=== PATIENT | male | born 1970 | race Caucasian/White ===

== ENCOUNTER 2017-12-19 19:06 | Emergency (ER) | payer OTHER ==
[~2017-12-19] VITALS: Ht 180.3 cm; Wt 90.0 kg
[~2017-12-19 19:06] MED LIST: DILT60TA PO
--- NOTE | 2017-12-19 21:27 | PD ---
HPI Chief Complaint: Psychiatric Symptoms Time Seen by Provider: 19:29 Travel History International Travel<30 days: No Contact w/Intl Traveler<30days: No Traveled to known affect area: No History of Present Illness HPI 47-year-old white male known to myself and the medical staff for prior evaluation presents to emergency department as a transfer from [facility] under a Alfaro act. The patient had gone in there for treatment of his chronic A. fib but had made a suicidal statement during his encounter. He was placed under a Alfaro act, medically cleared, and sent to the ER here to be seen by the psychiatrist. The patient here denies any true suicidal ideation. He states that he had said that out of frustration. He states that he was stuck 16 times to get his IV blood draw treatment of his A. fib. He is currently noncompliant with his medications. He states that he is still waiting for his benefits. He is living [facility]. He will be getting his check next week and plans on getting a hotel room. No toxic ingestions. Patient denies any suicidal homicidal ideation. PFSH Past Medical History Arthritis: No Asthma: Yes Autoimmune Disease: No Blood Disorders: No Bipolar Disorder: Yes Anxiety: Yes Depression: Yes Heart Rhythm Problems: Yes (AFIB) Cancer: No Cardiovascular Problems: Yes High Cholesterol: No Chemotherapy: No Chest Pain: Yes Congestive Heart Failure: No COPD: Yes Cerebrovascular Accident: No Coronary Artery Disease: Yes Diabetes: No Diminished Hearing: No Endocrine: No Gastrointestinal Disorders: Yes GERD: No Glaucoma: No Genitourinary: No Headaches: No Hepatitis: No Hiatal Hernia: No Hypertension: Yes Immune Disorder: Yes (HIV/ ?AIDS ACCORDING TO INSURANCE) Kidney Stones: No Musculoskeletal: No Neurologic: Yes Psychiatric: Yes Reproductive: No Respiratory: Yes Immunizations Current: Yes Migraines: Yes Myocardial Infarction: No Pancreatitis: Yes Radiation Therapy: No Renal Failure: No Schizophrenia: Yes Seizures: Yes Sickle Cell Disease: No Sleep Apnea: No Thyroid Disease: No Ulcer: No Past Surgical History AICD: No Cardiac Surgery: No Cholecystectomy: Yes Ear Surgery: No Endocrine Surgery: No Genitourinary Surgery: No Gynecologic Surgery: No Insulin Pump: No Joint Replacement: No Oral Surgery: No Pacemaker: No Thoracic Surgery: No Social History Alcohol Use: Yes Tobacco Use: Yes Substance Use: Yes Allergies-Medications (Allergen,Severity, Reaction): Coded Allergies: tetanus toxoid, adsorbed (Unverified Allergy, Severe, 12/06/17) Reported Meds & Prescriptions Reported Meds & Active Scripts Active Diltiazem (Diltiazem HCl) 60 Mg Tab 60 Mg PO QID 30 Days Review of Systems Except as stated in HPI: all other systems reviewed are Neg Physical Exam Narrative GENERAL: Well-nourished, well-developed patient. SKIN: Warm and dry. HEAD: Normocephalic and atraumatic. EYES: No scleral icterus. No injection or drainage. ENT: No nasal drainage noted. Mucous membranes pink. Airway patent. NECK: Supple, trachea midline. Moves head freely without obvious discomfort. CARDIOVASCULAR: Tachycardic rate and regular rhythm without murmurs, gallops, or rubs. RESPIRATORY: Breath sounds equal bilaterally. No accessory muscle use. GASTROINTESTINAL: Abdomen soft, non-tender, nondistended. EXTREMITIES: No cyanosis or edema. BACK: Nontender without obvious deformity. No CVA tenderness. NEURO: Patient is alert and oriented. no sensorimotor deficits. Nonfocal. Normal speech. PSYCH: No delusions. No auditory or visual hallucinations. Data Data Last Documented VS Vital Signs Date Time Temp Pulse Resp B/P (MAP) Pulse Ox O2 Delivery O2 Flow Rate FiO2 12/19/17 22:38 99.1 99 18 130/94 (106) 100 Room Air Orders Orders Psych Screen (12/19/17 19:08) Electrocardiogram (12/19/17 21:20) Carvedilol (Coreg) (12/19/17 21:30) Diltiazem (Cardizem) (12/19/17 21:30) Aspirin (Aspirin) (12/19/17 21:30) MDM Medical Decision Making Medical Screen Exam Complete: Yes Emergency Medical Condition: Yes Medical Record Reviewed: Yes Interpretation(s) EKG: Atrial fibrillation with ventricular rate of 108. No abnormal ST-T wave changes. Differential Diagnosis MDM: High Differential diagnoses: Schizophrenia, schizoaffective disorder, bipolar, anxiety, depression, adjustment reaction, mood disorder NOS, ODD, depressive disorder NOS, dementia, dementia with agitation, psychosis NOS, substance induced mood disorder, DMDD, Asperger syndrome, infection,electrolyte abnormality, malingering. Narrative Course Mental health screening discussed with the patient. Psychiatric screen ordered. The patient is given his Coreg 3.125 p.o., Cardizem 60 mg p.o., and 325 aspirin p.o. An order for EKG has been performed. Patient's EKG shows a ventricular rate of 108 chronic A. fib. He is given his medications for rate control. He is resting comfortable in examination room. The patient is considered medically cleared. Diagnosis Primary Impression: Medical clearance for psychiatric admission Additional Impression: Chronic atrial fibrillation with RVR Condition: Stable Buck Armendariz Dec 19, 2017 21:27
[2017-12-19] MEDS ORDERED: CARVEDILOL 3.125 MG TAB PO SCH (21:30)
[2017-12-19] MEDS: DILTIAZEM HCL 60 MG TAB PO SCH (21:30)
[2017-12-19] MEDS ORDERED: ASPIRIN 325 MG TAB PO ONE (21:30)
[2017-12-19 22:38] VITALS: BP 130/94; PULSE 99; RESP 18; TEMP 99.1; O2SAT 100
[2017-12-20 02:18] VITALS: BP 132/98; PULSE 96; RESP 18; O2SAT 99
[2017-12-20] MEDS: DILTIAZEM HCL 60 MG TAB PO SCH ×2 (06:00)
--- NOTE | 2017-12-20 09:31 | PD ---
Physical Exam Time Seen by Provider: 09:[address] Hoyos has evaluated the patient, lifted the Alfaro act and cleared the patient for discharge. Data Data Last Documented VS Vital Signs Date Time Temp Pulse Resp B/P (MAP) Pulse Ox O2 Delivery O2 Flow Rate FiO2 12/20/17 02:18 96 18 132/98 (109) 99 Room Air 12/19/17 22:38 99.1 Orders Orders Psych Screen (12/19/17 19:08) Electrocardiogram (12/19/17 21:20) Carvedilol (Coreg) (12/19/17 21:30) Diltiazem (Cardizem) (12/19/17 21:30) Aspirin (Aspirin) (12/19/17 21:30) Diet Regular Basic (12/20/17 Breakfast) Ed Discharge Order (12/20/17 09:31) [facility] Supervised Visit with KENNETH: No Narrative Course Dr. Hoyos has evaluated the patient, lifted the Alfaro act and cleared the patient for discharge. Patient contracts safety. Denies suicidal or homicidal ideations. Patient will be provided community resource packet to JON for follow-up. Has friends and family for support. Patient was medically cleared by alternate provider prior to psych screening. Patient has been evaluated by psychiatry and and is now cleared for discharge. Diagnosis Primary Impression: Chronic atrial fibrillation with RVR Additional Impression: Alcohol-induced mood disorder Referrals: [facility] (Out patient) [facility] Primary Care Physician Psychiatrist Anup [facility] Patient Instructions: Abuse of Alcohol (ED), Alcohol Dependence (ED), Alcohol Intoxication (ED), General Instructions, Mood Disorders (ED) Additional Instruction: Contract safety to your self and others Stop drinking alcohol Follow-up in the community for support, such as Alcoholics Anonymous Follow-up with psychiatry Follow-up with primary care provider Follow-up with Graham Wilson Return to the emergency department immediately with worsening of symptoms Med/Other Pt SpecificInfo: No Change to Meds, No Meds Exist/No RX given Disposition: 01 DISCHARGE HOME Condition: Stable BradyeddieSoraida JUAREZ Dec 20, 2017 09:31
--- NOTE | 2017-12-20 15:17 | PD.PSY.CON ---
Provisional Diagnosis Admission Date Dorrance I. Alcohol-induced mood disorder, alcohol use disorder History of Present Illness Service Psychiatry Consult Requested By ER Reason for Consult Under Alfaro act Primary Care Physician Unknown HPI The patient is a 47-year-old man, homeless, unemployed, supported by [facility], single, well known by the department, with psychiatric history of bipolar disorder, poor impulse control, borderline personality disorder, multiple psychiatric hospitalizations, he is not a medication, self mutilating behavior, alcohol use disorder, medical history of A. fib, HTN, COPD, who presents to emergency department as a transfer from [facility] under a Alfaro act. The patient had gone in there for treatment of his chronic A. fib but had made a suicidal statement during his encounter. He was placed under a Alfaro act , medically cleared, and sent to the ER here to be seen by the psychiatrist. The patient here denies any true suicidal ideation. He states that he had said that out of frustration. He states that he was stuck 16 times to get his IV blood draw treatment of his A. fib. He is currently noncompliant with his medications. He states that he is still waiting for his benefits. He is living in the [facility]. He will be getting his check next week and plans on getting a hotel room. Patient denies depressive symptoms, he denies suicidal and homicidal ideation, he denies visual and auditory hallucinations at this moment. Review of Systems Constitutional: DENIES: Diaphoretic episodes, Fatigue, Fever, Weight gain, Weight loss, Chills, Dizziness, Change in appetite, Night Sweats Endocrine: DENIES: Heat/cold intolerance, Polydipsia, Polyuria, Polyphagia Eyes: DENIES: Blurred vision, Diplopia, Eye inflammation, Eye pain, Vision loss , Photosensitivity, Double Vision Ears, nose, mouth, throat: DENIES: Tinnitus, Hearing loss, Vertigo, Nasal discharge, Oral lesions, Throat pain, Hoarseness, Ear Pain, Running Nose, Epistaxis, Sinus Pain, Toothache, Odynophagia Respiratory: DENIES: Apneas, Cough, Snoring, Wheezing, Hemoptysis, Sputum production, Shortness of breath Cardiovascular: DENIES: Chest pain, Palpitations, Syncope, Dyspnea on Exertion , PND, Lower Extremity Edema, Orthopnea, Claudication Gastrointestinal: DENIES: Abdominal pain, Black stools, Bloody stools, Constipation, Diarrhea, Nausea, Vomiting, Difficulty Swallowing, Anorexia Genitourinary: DENIES: Sexual dysfunction, Urinary frequency, Urinary incontinence, Urgency, Hematuria, Dysuria, Nocturia, Penile Discharge, Testicular Pain, Testicular Swelling Musculoskeletal: DENIES: Joint pain, Muscle aches, Stiffness, Joint Swelling, Back pain, Neck pain Integumentary: DENIES: Abnormal pigmentation, Nail changes, Pruritus, Rash Hematologic/lymphatic: DENIES: Bruising, Lymphadenopathy Immunologic/allergic: DENIES: Eczema, Urticaria Neurologic: DENIES: Abnormal gait, Headache, Localized weakness, Paresthesias, Seizures, Speech Problems, Tremor, Poor Balance Psychiatric: DENIES: Anxiety, Confusion, Mood changes, Depression, Hallucinations, Agitation, Suicidal Ideation, Homicidal Ideation, Delusions Past Family Social History Coded Allergies: tetanus toxoid, adsorbed (Unverified Allergy, Severe, 12/06/17) Active Scripts Diltiazem (Diltiazem) 60 Mg Tab, 60 MG PO QID for Angina for 30 Days, #120 TAB 0 Refills Prov:Noris Galicia DO 12/06/17 Family Psych History The patient does not have any family psychiatric history Social History Patient was born and raised in [place], he is homeless, supported by [facility], single, highest level of education is GED Physical Exam Vital Signs Vital Signs Date Time Temp Pulse Resp B/P (MAP) Pulse Ox O2 Delivery O2 Flow Rate FiO2 12/20/17 09:54 12/20/17 02:18 96 18 99 Room Air 12/19/17 22:38 99.1 Mental Status Examination Appearance: Appropriate Consciousness: Alert Orientation: x4 Motor Activity: Normal gait Speech: Unremarkable Language: Adequate Fund of Knowledge: Adequate Attention and Concentration: Adequate Memory: Unremarkable Mood: Appropriate Affect: Appropriate Thought Process & Associations: Intact Thought Content: Appropriate Hallucination Type: None Delusion Type: None Suicidal Ideation: No Suicidal Plan: No Suicidal Intention: No Homicidal Ideation: No Homicidal Plan: No Homicidal Intention: No Insight: Adequate Judgment: Adequate Assessment & Plan Problem List: (1) Alcohol abuse with alcohol-induced mood disorder ICD Codes: F10.14 - Alcohol abuse with alcohol-induced mood disorder Assessment & Plan: At the moment of the psychiatric evaluation the patient does not present any significant neuropsychiatric symptoms that require an immediate psychiatric intervention. The patient denies suicidal and homicidal ideation, he denies visual and auditory hallucinations. Patient does not meet criteria for involuntary psychiatric admission. Alfaro act will be lifted Assessment & Plan Estimated LOS: days Prince Jacinto MD Dec 20, 2017 15:17
--- NOTE | 2017-12-20 15:35 | EKG ---
Date Performed: 12/19/2017 Time Performed: 23:06:42 PTAGE: 47 years EKG: ATRIAL FIBRILLATION WITH RAPID VENTRICULAR RESPONSE ABNORMAL RHYTHM ECG Since the previous tracing, no significant change noted NO PREVIOUS TRACING DOCTOR: Alek Austin Interpretating Date/Time 12/20/2017 15:33:17
== END 2017-12-20 09:58 | disposition home or self-care (01) ==
LOC: NEPJ 19:06
DX: I48.2 Chronic atrial fibrillation (principal); F10.14 Alcohol abuse with alcohol-induced mood disorder; Y90.9 Presence of alcohol in blood, level not specified; Z72.0 Tobacco use; Z91.14 Patient's other noncompliance with medication regimen
CPT/HCPCS: 93005; 99284

== ENCOUNTER 2018-01-01 00:01 | Emergency (ER) | payer OTHER ==
[2018-01-01] VITALS (8 sets, daily range): BP systolic 85–132; BP diastolic 51–100; PULSE 102–154; RESP 18–24; TEMP 98.3–98.9; O2SAT 95–99
[~2018-01-01] VITALS: Ht 185.4 cm; Wt 105.0 kg
[2018-01-01] MEDS ORDERED: DILTIAZEM HCL 25 MG/5 ML VIAL IV ONE (00:45)
[2018-01-01] MEDS ORDERED: SODIUM CHLORID 0.9% 500 ML INJ 500 ML IV ONE (00:45)
--- NOTE | 2018-01-01 00:46 | PD ---
HPI Chief Complaint: Psychiatric Symptoms Time Seen by Provider: 00:41 Travel History International Travel<30 days: No Contact w/Intl Traveler<30days: No Traveled to known affect area: No History of Present Illness HPI The patient is a 47-year-old male who presents to the emergency department from [facility] for medical clearance. The patient was placed under a Alfaro act earlier today because he told staff at a restaurant he wish to harm himself and they subsequently called the police. The patient states he no longer has a reason to live and apparently made several statements requesting the police to shoot him. Therefore, please placed him under Alfaro act. The patient was taken [facility], however, they state the patient has a history of lung cancer, atrial fibrillation, COPD, asthma, and enlarged heart. They stated the patient was out of the scope of their practice. The patient does admit to daily alcohol abuse, he drank alcohol earlier today. He also notes a history of lung cancer, however, states he is not currently undergoing treatment. He was unable to tell me what stage of lung cancer he has. He also complains of mild chest discomfort and pain as well as epigastric abdominal pain. Patient states he is supposed to take Cardizem 240 mg extended release daily, but has not taken his medications in a "long time ". He denies any acute shortness of breath. Symptoms are moderate. PFSH Past Medical History Arthritis: No Asthma: Yes Autoimmune Disease: No Blood Disorders: No Bipolar Disorder: Yes Anxiety: Yes Depression: Yes Heart Rhythm Problems: Yes (AFIB) Cancer: No Cardiovascular Problems: Yes High Cholesterol: No Chemotherapy: No Chest Pain: Yes Congestive Heart Failure: No COPD: Yes Cerebrovascular Accident: No Coronary Artery Disease: Yes Diabetes: No Patient Takes Glucophage: No Diminished Hearing: No Endocrine: No Gastrointestinal Disorders: Yes GERD: No Glaucoma: No Genitourinary: No Headaches: No Hepatitis: No Hiatal Hernia: No Hypertension: Yes Immune Disorder: No Kidney Stones: No Musculoskeletal: No Neurologic: Yes Psychiatric: Yes Reproductive: No Respiratory: Yes Immunizations Current: Yes Migraines: Yes Myocardial Infarction: No Pancreatitis: Yes Radiation Therapy: No Renal Failure: No Schizophrenia: Yes Seizures: Yes Sickle Cell Disease: No Sleep Apnea: No Thyroid Disease: No Ulcer: No Tetanus Vaccination: > 5 Years Influenza Vaccination: No Past Surgical History Abdominal Surgery: Yes (GALL BLADDER REMOVAL) AICD: No Cardiac Surgery: No Cholecystectomy: Yes Ear Surgery: No Endocrine Surgery: No Genitourinary Surgery: No Gynecologic Surgery: No Insulin Pump: No Joint Replacement: No Oral Surgery: No Pacemaker: No Thoracic Surgery: No Social History Alcohol Use: Yes (DAILY) Tobacco Use: Yes Substance Use: Yes Allergies-Medications (Allergen,Severity, Reaction): Coded Allergies: tetanus toxoid, adsorbed (Unverified Allergy, Severe, 01/01/18) Reported Meds & Prescriptions Reported Meds & Active Scripts Active No Active Prescriptions or Reported Medications Review of Systems Except as stated in HPI: all other systems reviewed are Neg General / Constitutional: No: Fever HENT: No: Lightheadedness Cardiovascular: Positive: Chest Pain or Discomfort, Irregular Rhythm, Tachycardia Respiratory: No: Shortness of Breath Gastrointestinal: Positive: Nausea, Abdominal Pain, No: Vomiting, Diarrhea Neurologic: No: Change in Mentation Psychiatric: Positive: Suicidal Ideations, Mood Disorder, Substance Abuse Physical Exam Narrative GENERAL: Awake, alert, pleasant 47-year-old male who appears his stated age and is in no acute respiratory distress. SKIN: Focused skin assessment warm/dry. HEAD: Atraumatic. Normocephalic. EYES: No scleral icterus. ENT: No nasal bleeding or discharge. Poor dentition. NECK: Trachea midline. No JVD. CARDIOVASCULAR: Irregularly irregular, tachycardic with a heart rate in the 150s. RESPIRATORY: No accessory muscle use. Scattered rhonchi in the right base. GASTROINTESTINAL: Abdomen soft, mild epigastric tenderness. MUSCULOSKELETAL: No obvious deformities. No clubbing. No cyanosis. No edema. NEUROLOGICAL: Awake and alert. No obvious cranial nerve deficits. Motor grossly within normal limits. Normal speech. Nonfocal. PSYCHIATRIC: Appears slightly intoxicated. Data Data Orders Orders Complete Blood Count With Diff (01/01/18 00:29) Comprehensive Metabolic Panel (01/01/18 00:29) Psych Screen (01/01/18 00:29) Alcohol (Ethanol) (01/01/18 00:29) B-Type Natriuretic Peptide (01/01/18 00:37) Act Partial Throm Time (Ptt) (01/01/18 00:37) Prothrombin Time / Inr (Pt) (01/01/18 00:37) Magnesium (Mg) (01/01/18 00:37) Ckmb (Isoenzyme) Profile (01/01/18 00:37) Troponin I (01/01/18 00:37) Iv Access Insert/Monitor (01/01/18 00:37) Electrocardiogram (01/01/18 00:37) Ecg Monitoring (01/01/18 00:37) Oximetry (01/01/18 00:37) Oxygen Administration (01/01/18 00:37) Chest, Single Ap (01/01/18 00:37) Sodium Chloride 0.9% Flush (Ns Flush) (01/01/18 00:45) Lipase (01/01/18 00:39) Diltiazem Inj (Cardizem Inj) (01/01/18 00:45) Sodium Chlorid 0.9% 500 Ml Inj (Ns 500 M (01/01/18 00:45) MDM Medical Decision Making Medical Screen Exam Complete: Yes Emergency Medical Condition: Yes Medical Record Reviewed: Yes Differential Diagnosis Differential diagnosis includes Alfaro act, schizoaffective disorder, mood disorder, depressive disorder NOS, substance-induced mood disorder, holiday heart, atrial fibrillation with RVR, pulmonary embolism, pancreatitis, dehydration. Narrative Course IV was established, labs are drawn and sent, the patient was placed on cardiac telemetry monitoring and continuous pulse oximetry monitoring. EKG was ordered and interpreted. Chest x-ray was obtained. The patient was administered 500 cc of normal saline and Cardizem 50 mg intravenously. I did review the EMR, the patient had a nuclear medicine myocardial perfusion scan performed in November 2017 which reveals no acute reversible changes, prior infarct, patient was high risk greater than 3%. The patient was moved from [facility] to [facility] and was signed out to Dr. Holloway at 12:50 AM. Diagnosis Primary Impression: Atrial fibrillation with RVR Additional Impression: Alcohol abuse with alcohol-induced mood disorder Admitting Information Admitting Physician Requests: Admit Scripts No Active Prescriptions or Reported Meds Condition: Stable Neil Blanco MD Jan 01, 2018 00:46
[2018-01-01] MEDS ORDERED: ASPIRIN EC 81 MG TABEC PO ONE (01:00)
[2018-01-01] MEDS ORDERED: HALOPERIDOL LACTATE 5 MG/ML AMP ONE (01:17)
[2018-01-01] MEDS ORDERED: LORazepam 2 MG/ML VIAL ONE (01:17)
[2018-01-01] MEDS ORDERED: LORazepam 2 MG/ML VIAL IM ONE (01:45)
[2018-01-01] MEDS ORDERED: HALOPERIDOL LACTATE 5 MG/ML AMP IM ONE (01:45)
[2018-01-01] MEDS ORDERED: METOPROLOL TARTRATE 5 MG/5 ML VIAL IV PUSH STA ×2 (03:16→04:36)
[2018-01-01 03:39] LABS: ALBUMIN 3.3 GM/DL (3.4-5.0); AST (GOT) 49 U/L (15-37); BICARBONATE 26.2 MEQ/L (21.0-32.0); BLOOD UREA NITROGEN 14 MG/DL (7-18); CALCIUM 7.7 MG/DL (8.5-10.1); CHLORIDE 110 MEQ/L (98-107); CREATININE 0.93 MG/DL (0.60-1.30); GLOMERULAR FILTRATION RATE 86 ML/MIN (>89); GLUCOSE,RANDOM 89 MG/DL (74-106); MAGNESIUM 1.9 MG/DL (1.5-2.5); SODIUM (NA) 146 MEQ/L (136-145)
[2018-01-01 03:43] LABS: ALKALINE PHOSPHATASE 92 U/L (45-117); ALT (GPT) 51 U/L (12-78); TOTAL BILIRUBIN ADULT 0.3 MG/DL (0.2-1.0); TOTAL PROTEIN 5.8 GM/DL (6.4-8.2); TROPONIN I LESS THAN 0.02 NG/ML (0.02-0.05)
[2018-01-01 04:01] LABS: AUTOMATED NEUTROPHIL # 2.4 TH/MM3 (1.8-7.7); BASOPHIL # 0.1 TH/MM3 (0-0.2); BASOPHIL % 1.4 % (0.0-2.0); EOSINOPHIL # 0.3 TH/MM3 (0-0.4); EOSINOPHIL % 4.9 % (0.0-4.0); HEMATOCRIT 28.8 % (39.0-51.0); HEMOGLOBIN 8.8 GM/DL (13.0-17.0); LYMPH % 41.8 % (9.0-44.0); LYMPHOCYTE # 2.4 TH/MM3 (1.0-4.8); MEAN CELL VOLUME 66.2 FL (80.0-100.0); MEAN CORPUSCULAR HEMOGLOBIN 20.1 PG (27.0-34.0); MEAN CORPUSCULAR HGB CONC 30.4 % (32.0-36.0); MEAN PLATELET VOLUME 8.1 FL (7.0-11.0); MONOCYTE # 0.6 TH/MM3 (0-0.9); NEUT % 41.9 % (16.0-70.0); PLATELET COUNT 351 TH/MM3 (150-450); RED BLOOD COUNT 4.36 MIL/MM3 (4.50-5.90); RED CELL DISTRIBUTION WIDTH 22.6 % (11.6-17.2); WHITE BLOOD COUNT 5.8 TH/MM3 (4.0-11.0)
[2018-01-01 04:08] LABS: INTERNATIONAL NORMALIZED RATIO 1.1 RATIO; PROTHROMBIN TIME - PATIENT 11.5 SEC (9.8-11.6)
[2018-01-01] MEDS ORDERED: LORazepam 1 MG TAB PO PRN (05:45)
[2018-01-01] MEDS ORDERED: FLUMAZENIL 0.5 MG/5 ML VIAL IV PUSH PRN (05:45)
[2018-01-01] MEDS ORDERED: LORazepam 2 MG/ML VIAL IV PUSH PRN ×3 (05:45)
[2018-01-01] MEDS ORDERED: LORazepam 2 MG TAB PO PRN (05:45)
--- NOTE | 2018-01-01 05:53 | PD ---
Physical Exam Narrative Patient is a 47 year old male with history of Afib, chronic alcoholism, psychiatric disorders. He is brought in by police under a david act after making suicidal statements. Patient states he has nothing to live for and he wants to . Patient has been here multiple times for this. He also does not take any of his medications and always has a rapid heart rate. Patient is uncooperative and belligerent. He is refusing to provide history or allow any testing. Patient does have a rapid heart rate. Thus, patient sedated with Ativan and Haldol. Afterwards, IV was established and labs drawn. He was given Metoprolol as we are out of Cardizem IV. He is prescribed Cardizem 240mg, which he does not take. Data Data Last Documented VS Vital Signs Date Time Temp Pulse Resp B/P (MAP) Pulse Ox O2 Delivery O2 Flow Rate FiO2 01/01/18 04:46 108 18 103/70 (81) 95 Room Air 01/01/18 03:28 2.00 01/01/18 00:50 98.3 Orders Orders Complete Blood Count With Diff (01/01/18 00:29) Comprehensive Metabolic Panel (01/01/18 00:29) Psych Screen (01/01/18 00:29) Alcohol (Ethanol) (01/01/18 00:29) B-Type Natriuretic Peptide (01/01/18 00:37) Act Partial Throm Time (Ptt) (01/01/18 00:37) Prothrombin Time / Inr (Pt) (01/01/18 00:37) Iv Access Insert/Monitor (01/01/18 00:37) Electrocardiogram (01/01/18 00:37) Ecg Monitoring (01/01/18 00:37) Oximetry (01/01/18 00:37) Oxygen Administration (01/01/18 00:37) Sodium Chloride 0.9% Flush (Ns Flush) (01/01/18 00:45) Diltiazem Inj (Cardizem Inj) (01/01/18 00:45) Sodium Chlorid 0.9% 500 Ml Inj (Ns 500 M (01/01/18 00:45) Aspirin Ec (Ecotrin Ec) (01/01/18 01:00) Haloperidol Inj (Haldol Inj) (01/01/18 01:17) Lorazepam Inj (Ativan Inj) (01/01/18 01:17) Haloperidol Inj (Haldol Inj) (01/01/18 01:45) Lorazepam Inj (Ativan Inj) (01/01/18 01:45) Metoprolol Tartrate Inj (Lopressor Inj) (01/01/18 03:16) Ckmb (Isoenzyme) Profile (01/01/18 00:29) Lipase (01/01/18 00:29) Magnesium (Mg) (01/01/18 00:29) Troponin I (01/01/18 00:29) CKMB (01/01/18 02:42) CKMB% (01/01/18 02:42) Metoprolol Tartrate Inj (Lopressor Inj) (01/01/18 04:36) Alcohol Withdrawal Asmt-Ciwa ONCE (01/01/18 05:45) Flumazenil Inj (Romazicon Inj) (01/01/18 05:45) Lorazepam (Ativan) (01/01/18 05:45) Lorazepam Inj (Ativan Inj) (01/01/18 05:45) Lorazepam (Ativan) (01/01/18 05:45) Lorazepam Inj (Ativan Inj) (01/01/18 05:45) Lorazepam Inj (Ativan Inj) (01/01/18 05:45) Lorazepam Inj (Ativan Inj) (01/01/18 05:45) Labs Laboratory Tests Test 01/01/18 02:42 White Blood Count 5.8 TH/MM3 Red Blood Count 4.36 MIL/MM3 Hemoglobin 8.8 GM/DL Hematocrit 28.8 % Mean Corpuscular Volume 66.2 FL Mean Corpuscular Hemoglobin 20.1 PG Mean Corpuscular Hemoglobin Concent 30.4 % Red Cell Distribution Width 22.6 % Platelet Count 351 TH/MM3 Mean Platelet Volume 8.1 FL Neutrophils (%) (Auto) 41.9 % Lymphocytes (%) (Auto) 41.8 % Monocytes (%) (Auto) 10.0 % Eosinophils (%) (Auto) 4.9 % Basophils (%) (Auto) 1.4 % Neutrophils # (Auto) 2.4 TH/MM3 Lymphocytes # (Auto) 2.4 TH/MM3 Monocytes # (Auto) 0.6 TH/MM3 Eosinophils # (Auto) 0.3 TH/MM3 Basophils # (Auto) 0.1 TH/MM3 CBC Comment DIFF FINAL Differential Comment Prothrombin Time 11.5 SEC Prothromb Time International Ratio 1.1 RATIO Activated Partial Thromboplast Time 28.3 SEC Blood Urea Nitrogen 14 MG/DL Creatinine 0.93 MG/DL Random Glucose 89 MG/DL Total Protein 5.8 GM/DL Albumin 3.3 GM/DL Calcium Level 7.7 MG/DL Magnesium Level 1.9 MG/DL Alkaline Phosphatase 92 U/L Aspartate Amino Transf (AST/SGOT) 49 U/L Alanine Aminotransferase (ALT/SGPT) 51 U/L Total Bilirubin 0.3 MG/DL Sodium Level 146 MEQ/L Potassium Level 3.6 MEQ/L Chloride Level 110 MEQ/L Carbon Dioxide Level 26.2 MEQ/L Anion Gap 10 MEQ/L Estimat Glomerular Filtration Rate 86 ML/MIN Total Creatine Kinase 262 U/L Creatine Kinase MB 3.3 NG/ML Troponin I LESS THAN 0.02 NG/ML B-Type Natriuretic Peptide 325 PG/ML Lipase 232 U/L Ethyl Alcohol Level 282 MG/DL [facility] Supervised Visit with KENNETH: No Narrative Course Patient's heart rate improved with medications. Labs show an alcohol level of 282. He is anemic with Hgb 8.8. No other acute abnormalities. With his heart rate under better control, he will be medically cleared for psychiatric evaluation. Diagnosis Primary Impression: Alcohol abuse with intoxication Additional Impression: Atrial fibrillation with RVR Scripts No Active Prescriptions or Reported Meds Condition: Stable Vilma Holloway MD Jan 01, 2018 05:53
[2018-01-01] MEDS: SODIUM CHLORIDE 0.9% FLUSH 10 ML FLUSH IVF PRN ×2 (09:10→11:42)
[2018-01-01] MEDS: LORazepam 2 MG/ML VIAL IV PUSH PRN ×3 (11:42→14:50)
--- NOTE | 2018-01-01 15:19 | PD ---
History of Present Illness Chief Complaint: Psychiatric Symptoms Time Seen by Provider: 15:05 Travel History International Travel<30 Days: No Contact w/Intl Traveler<30days: No Known affected area: No Legal Status Legal Status: Alfaro Act Alfaro Act Signed By: Alfaro Act Comment: [employer] History of Present Illness: History of Present Illness HPI The patient is a 47-year-old male with history of alcohol abuse , bipolar disorder, borderline personality disorder, schizoaffective disorder who presents to the emergency department from [facility] for medical clearance. The patient was placed under a Alfaro act earlier today because in context of alcohol intoxication he he told staff at a restaurant that he wish to harm himself and they subsequently called the police. The report alleges that the patient patient states he no longer has a reason to live and apparently made several statements requesting the police to shoot him. Upon arrival to the ED his blood alcohol level was 282. The patient was allowed to sober up clinically and secure environment and he presented no suicidality and no behavioral concerns. Electronic medical record is reviewed the patient has been seen by [facility] psychiatry team with his last evaluation in November 2017, at that time he was admitted under a Alfaro act for cutting his neck with a blunt object in contacts of alcohol abuse as well as cocaine abuse. Previous to that the patient had been evaluated in 2005. It is unclear if he had been out of the [facility] or incarcerated. Patient is seen in Main ED. He is clinically sober. Appears much older than stated age. He has a very jovial attitude and is requesting to be discharged. He denies any suicidality. He states" I was drunk and I said the wrong thing" he denies that he is feeling depressed and states that he does have outpatient follow-up with Dr. Minerva Harkins. There is no indication of any psychosis and no deric. I endeavored to discuss with him his continued use of alcohol. He states" I like drinking and I am not ready to stop." The remainder of the psychiatric review of system is negative. PFSH Past Medical History Arthritis: No Asthma: Yes Autoimmune Disease: No Blood Disorders: No Bipolar Disorder: Yes Anxiety: Yes Depression: Yes Heart Rhythm Problems: Yes (AFIB) Cancer: No Cardiovascular Problems: Yes High Cholesterol: No Chemotherapy: No Chest Pain: Yes Congestive Heart Failure: No COPD: Yes Cerebrovascular Accident: Yes Coronary Artery Disease: Yes Diabetes: No Patient Takes Glucophage: No Diminished Hearing: No Endocrine: No Gastrointestinal Disorders: Yes GERD: No Glaucoma: No Genitourinary: No Headaches: No Hepatitis: No Hiatal Hernia: No Hypertension: Yes Immune Disorder: No Kidney Stones: No Musculoskeletal: No Neurologic: Yes Psychiatric: Yes Reproductive: No Respiratory: Yes Immunizations Current: Yes Migraines: Yes Myocardial Infarction: No Pancreatitis: Yes Radiation Therapy: No Renal Failure: No Schizophrenia: Yes Seizures: Yes Sickle Cell Disease: No Sleep Apnea: No Thyroid Disease: No Ulcer: No Tetanus Vaccination: > 5 Years Influenza Vaccination: No Past Surgical History Abdominal Surgery: Yes (GALL BLADDER REMOVAL) AICD: No Cardiac Surgery: No Cholecystectomy: Yes Ear Surgery: No Endocrine Surgery: No Genitourinary Surgery: No Gynecologic Surgery: No Insulin Pump: No Joint Replacement: No Oral Surgery: No Pacemaker: No Thoracic Surgery: No Psychiatric History Psychiatric History Hx Psychiatric Treatment: HX OF SCHIZOAFFECTIVE ACCORDING TO RECORDS IN 2004 2005. HX OF [facility] IN 1999. History of Inpatient Treatment: Yes Guns or firearms in home: No Social History Single male who reports he lives in [place]. Patient is on disability. Hx Alcohol Use: Yes (DAILY) Hx Tobacco Use: Yes Hx Substance Use: Yes Substance Use Type: Alcohol (states drinks every day and does not want to stop) , Cocaine Hx of Substance Use Treatment: Yes Family Psychiatric History Negative Allergies-Medications (Allergen,Severity, Reaction): Coded Allergies: tetanus toxoid, adsorbed (Unverified Allergy, Severe, 01/01/18) Reported Meds & Prescriptions Reported Meds & Active Scripts Active No Active Prescriptions or Reported Medications Review of Systems Psychiatric: DENIES: Anxiety, Confusion, Mood changes, Depression, Hallucinations, Agitation, Suicidal Ideation, Homicidal Ideation, Delusions Except as stated in HPI: all other systems reviewed are Neg Mental Status Examination Appearance: Appropriate Consciousness: Alert Orientation: x4 Speech: Unremarkable Language: Adequate Fund of Knowledge: Adequate Attention and Concentration: Adequate Memory: Unremarkable Mood: Appropriate Affect: Appropriate Thought Process & Associations: Intact, Logical, Goal directed Thought Content: Appropriate Hallucination Type: None Delusion Type: None Suicidal Ideation: No Suicidal Plan: No Suicidal Intention: No Homicidal Ideation: No Homicidal Plan: No Homicidal Intention: No Insight: Poor Judgment: Poor MDM Medical Decision Making Medical Record Reviewed: Yes Assessment/Plan The patient is a 47-year-old male with history of alcohol abuse , bipolar disorder, borderline personality disorder, schizoaffective disorder who presents to the emergency department from [facility] for medical clearance. The patient was placed under a Alfaro act earlier today because in context of alcohol intoxication he he told staff at a restaurant he wish to harm himself and they subsequently called the police. The patient states he no longer has a reason to live and apparently made several statements requesting the police to shoot him. Therefore, please placed him under Alfaro act. Patient is clinically sober. He does not present any psychosis or deric. He denies any suicidal carson homicidal ideation, intent or plan. He does not want treatment for his alcohol use disorder. He tells me that he is in treatment with Minerva Woody will follow up with her. At this time the patient does not meet criteria for Aflaro act. Lift the BA. Orders Orders Complete Blood Count With Diff (01/01/18 00:29) Comprehensive Metabolic Panel (01/01/18 00:29) Psych Screen (01/01/18 00:29) Alcohol (Ethanol) (01/01/18 00:29) B-Type Natriuretic Peptide (01/01/18 00:37) Act Partial Throm Time (Ptt) (01/01/18 00:37) Prothrombin Time / Inr (Pt) (01/01/18 00:37) Iv Access Insert/Monitor (01/01/18 00:37) Electrocardiogram (01/01/18 00:37) Ecg Monitoring (01/01/18 00:37) Oximetry (01/01/18 00:37) Oxygen Administration (01/01/18 00:37) Sodium Chloride 0.9% Flush (Ns Flush) (01/01/18 00:45) Diltiazem Inj (Cardizem Inj) (01/01/18 00:45) Sodium Chlorid 0.9% 500 Ml Inj (Ns 500 M (01/01/18 00:45) Aspirin Ec (Ecotrin Ec) (01/01/18 01:00) Haloperidol Inj (Haldol Inj) (01/01/18 01:17) Lorazepam Inj (Ativan Inj) (01/01/18 01:17) Haloperidol Inj (Haldol Inj) (01/01/18 01:45) Lorazepam Inj (Ativan Inj) (01/01/18 01:45) Metoprolol Tartrate Inj (Lopressor Inj) (01/01/18 03:16) Ckmb (Isoenzyme) Profile (01/01/18 00:29) Lipase (01/01/18 00:29) Magnesium (Mg) (01/01/18 00:29) Troponin I (01/01/18 00:29) CKMB (01/01/18 02:42) CKMB% (01/01/18 02:42) Metoprolol Tartrate Inj (Lopressor Inj) (01/01/18 04:36) Alcohol Withdrawal Asmt-Ciwa ONCE (01/01/18 05:45) Flumazenil Inj (Romazicon Inj) (01/01/18 05:45) Lorazepam (Ativan) (01/01/18 05:45) Lorazepam Inj (Ativan Inj) (01/01/18 05:45) Lorazepam (Ativan) (01/01/18 05:45) Lorazepam Inj (Ativan Inj) (01/01/18 05:45) Lorazepam Inj (Ativan Inj) (01/01/18 05:45) Lorazepam Inj (Ativan Inj) (01/01/18 05:45) Diet Regular Basic (01/01/18 Breakfast) Diet Regular Basic (01/01/18 Dinner) Results Vital Signs Date Time Temp Pulse Resp B/P (MAP) Pulse Ox O2 Delivery O2 Flow Rate FiO2 01/01/18 12:34 98.9 111 24 123/70 (87) 99 Room Air 01/01/18 09:12 110 19 114/57 (76) 96 Room Air 01/01/18 06:38 102 18 99/55 (70) 97 Room Air 01/01/18 04:46 108 18 103/70 (81) 95 Room Air 01/01/18 03:28 114 18 113/57 (75) 95 Nasal Cannula 2.00 01/01/18 02:49 127 18 85/51 (62) 96 Room Air 01/01/18 00:51 Room Air 01/01/18 00:51 Room Air 01/01/18 00:50 98.3 154 20 132/100 (111) 95 Room Air 01/01/18 00:46 98.3 149 20 95 Laboratory Tests Test 01/01/18 02:42 White Blood Count 5.8 Red Blood Count 4.36 Hemoglobin 8.8 Hematocrit 28.8 Mean Corpuscular Volume 66.2 Mean Corpuscular Hemoglobin 20.1 Mean Corpuscular Hemoglobin Concent 30.4 Red Cell Distribution Width 22.6 Platelet Count 351 Mean Platelet Volume 8.1 Neutrophils (%) (Auto) 41.9 Lymphocytes (%) (Auto) 41.8 Monocytes (%) (Auto) 10.0 Eosinophils (%) (Auto) 4.9 Basophils (%) (Auto) 1.4 Neutrophils # (Auto) 2.4 Lymphocytes # (Auto) 2.4 Monocytes # (Auto) 0.6 Eosinophils # (Auto) 0.3 Basophils # (Auto) 0.1 CBC Comment DIFF FINAL Differential Comment Prothrombin Time 11.5 Prothromb Time International Ratio 1.1 Activated Partial Thromboplast Time 28.3 Blood Urea Nitrogen 14 Creatinine 0.93 Random Glucose 89 Total Protein 5.8 Albumin 3.3 Calcium Level 7.7 Magnesium Level 1.9 Alkaline Phosphatase 92 Aspartate Amino Transf (AST/SGOT) 49 Alanine Aminotransferase (ALT/SGPT) 51 Total Bilirubin 0.3 Sodium Level 146 Potassium Level 3.6 Chloride Level 110 Carbon Dioxide Level 26.2 Anion Gap 10 Estimat Glomerular Filtration Rate 86 Total Creatine Kinase 262 Creatine Kinase MB 3.3 Troponin I LESS THAN 0.02 B-Type Natriuretic Peptide 325 Lipase 232 Ethyl Alcohol Level 282 Diagnosis Primary Impression: Alcohol abuse with intoxication Additional Impressions: Atrial fibrillation with RVR Alcohol abuse with alcohol-induced mood disorder Psychiatrically Cleared: Yes Med/ Other Pt Specific Info: No Change to Meds Prescriptions No Active Prescriptions or Reported Meds Disposition: 01 DISCHARGE HOME Condition: Stable Problem Qualifiers Naz Wheeler Jan 01, 2018 15:19
--- NOTE | 2018-01-01 15:24 | PD ---
Physical Exam Date Seen by Provider: Jan 01, 2018 Time Seen by Provider: 15:23 Narrative Patient was signed out to me 2 be seen by psych for psych screen. He is an extremely noncompliant chronic alcoholic with history of A. fib. He has been the emergency room multiple times. Patient refuses to take his medications as an outpatient. His guardian is a Alfaro act. I was just told a psych saw him and lifted the Alfaro act. I will be discharging him home. Data Data Last Documented VS Vital Signs Date Time Temp Pulse Resp B/P (MAP) Pulse Ox O2 Delivery O2 Flow Rate FiO2 01/01/18 15:31 01/01/18 12:34 98.9 111 24 99 Room Air 01/01/18 03:28 2.00 Orders Orders Complete Blood Count With Diff (01/01/18 00:29) Comprehensive Metabolic Panel (01/01/18 00:29) Psych Screen (01/01/18 00:29) Alcohol (Ethanol) (01/01/18 00:29) B-Type Natriuretic Peptide (01/01/18 00:37) Act Partial Throm Time (Ptt) (01/01/18 00:37) Prothrombin Time / Inr (Pt) (01/01/18 00:37) Iv Access Insert/Monitor (01/01/18 00:37) Electrocardiogram (01/01/18 00:37) Ecg Monitoring (01/01/18 00:37) Oximetry (01/01/18 00:37) Oxygen Administration (01/01/18 00:37) Sodium Chloride 0.9% Flush (Ns Flush) (01/01/18 00:45) Diltiazem Inj (Cardizem Inj) (01/01/18 00:45) Sodium Chlorid 0.9% 500 Ml Inj (Ns 500 M (01/01/18 00:45) Aspirin Ec (Ecotrin Ec) (01/01/18 01:00) Haloperidol Inj (Haldol Inj) (01/01/18 01:17) Lorazepam Inj (Ativan Inj) (01/01/18 01:17) Haloperidol Inj (Haldol Inj) (01/01/18 01:45) Lorazepam Inj (Ativan Inj) (01/01/18 01:45) Metoprolol Tartrate Inj (Lopressor Inj) (01/01/18 03:16) Ckmb (Isoenzyme) Profile (01/01/18 00:29) Lipase (01/01/18 00:29) Magnesium (Mg) (01/01/18 00:29) Troponin I (01/01/18 00:29) CKMB (01/01/18 02:42) CKMB% (01/01/18 02:42) Metoprolol Tartrate Inj (Lopressor Inj) (01/01/18 04:36) Alcohol Withdrawal Asmt-Ciwa ONCE (01/01/18 05:45) Flumazenil Inj (Romazicon Inj) (01/01/18 05:45) Lorazepam (Ativan) (01/01/18 05:45) Lorazepam Inj (Ativan Inj) (01/01/18 05:45) Lorazepam (Ativan) (01/01/18 05:45) Lorazepam Inj (Ativan Inj) (01/01/18 05:45) Lorazepam Inj (Ativan Inj) (01/01/18 05:45) Lorazepam Inj (Ativan Inj) (01/01/18 05:45) Diet Regular Basic (01/01/18 Breakfast) Ed Discharge Order (01/01/18 15:25) Labs Laboratory Tests Test 01/01/18 02:42 White Blood Count 5.8 TH/MM3 Red Blood Count 4.36 MIL/MM3 Hemoglobin 8.8 GM/DL Hematocrit 28.8 % Mean Corpuscular Volume 66.2 FL Mean Corpuscular Hemoglobin 20.1 PG Mean Corpuscular Hemoglobin Concent 30.4 % Red Cell Distribution Width 22.6 % Platelet Count 351 TH/MM3 Mean Platelet Volume 8.1 FL Neutrophils (%) (Auto) 41.9 % Lymphocytes (%) (Auto) 41.8 % Monocytes (%) (Auto) 10.0 % Eosinophils (%) (Auto) 4.9 % Basophils (%) (Auto) 1.4 % Neutrophils # (Auto) 2.4 TH/MM3 Lymphocytes # (Auto) 2.4 TH/MM3 Monocytes # (Auto) 0.6 TH/MM3 Eosinophils # (Auto) 0.3 TH/MM3 Basophils # (Auto) 0.1 TH/MM3 CBC Comment DIFF FINAL Differential Comment Prothrombin Time 11.5 SEC Prothromb Time International Ratio 1.1 RATIO Activated Partial Thromboplast Time 28.3 SEC Blood Urea Nitrogen 14 MG/DL Creatinine 0.93 MG/DL Random Glucose 89 MG/DL Total Protein 5.8 GM/DL Albumin 3.3 GM/DL Calcium Level 7.7 MG/DL Magnesium Level 1.9 MG/DL Alkaline Phosphatase 92 U/L Aspartate Amino Transf (AST/SGOT) 49 U/L Alanine Aminotransferase (ALT/SGPT) 51 U/L Total Bilirubin 0.3 MG/DL Sodium Level 146 MEQ/L Potassium Level 3.6 MEQ/L Chloride Level 110 MEQ/L Carbon Dioxide Level 26.2 MEQ/L Anion Gap 10 MEQ/L Estimat Glomerular Filtration Rate 86 ML/MIN Total Creatine Kinase 262 U/L Creatine Kinase MB 3.3 NG/ML Troponin I LESS THAN 0.02 NG/ML B-Type Natriuretic Peptide 325 PG/ML Lipase 232 U/L Ethyl Alcohol Level 282 MG/DL MDM Supervised Visit with KENNETH: No Diagnosis Primary Impression: Alcohol abuse with intoxication Additional Impression: Atrial fibrillation with RVR Scripts No Active Prescriptions or Reported Meds Disposition: 01 DISCHARGE HOME Condition: Stable Brandon Ortiz MD Jan 01, 2018 15:24
--- NOTE | 2018-01-02 09:35 | EKG ---
Date Performed: 01/01/2018 Time Performed: 00:49:07 PTAGE: 47 years EKG: ATRIAL FIBRILLATION WITH RAPID VENTRICULAR RESPONSE MINIMAL ST DEPRESSION ABNORMAL RHYTHM E CG PREVIOUS TRACING : 12/19/2017 23.06 Since previous tracing, ventricular response of the atrial fibrillation is faster, otherwise no significant change. DOCTOR: Onur Araiza Interpretating Date/Time 01/02/2018 09:34:48
== END 2018-01-01 15:44 | disposition home or self-care (01) ==
LOC: NEPC 00:01
DX: F10.129 Alcohol abuse with intoxication, unspecified (principal); I48.91 Unspecified atrial fibrillation; Y90.8 Blood alcohol level of 240 mg/100 ml or more; Z72.0 Tobacco use
CPT/HCPCS: 80053; 80307; 82550; 82552; 83690; 83735; 83880; 84484; 85025; 85610; 85730; 93005; 96361; 96372; 96374; 96375; 96376; 99284; J1630; J2060; J7040

== ENCOUNTER 2018-01-03 07:25 | Emergency (ER) | payer OTHER ==
[~2018-01-03] VITALS: Ht 177.8 cm; Wt 104.0 kg
[2018-01-03] VITALS (9 sets, daily range): BP systolic 134–146; BP diastolic 92–110; PULSE 87–144; RESP 16–20; TEMP 97.6; O2SAT 91–97
[2018-01-03] MEDS ORDERED: LORazepam 2 MG/ML VIAL IM ONE (07:45)
--- NOTE | 2018-01-03 07:55 | PD ---
HPI Chief Complaint: Psychiatric Symptoms Time Seen by Provider: 07:34 Travel History International Travel<30 days: No Contact w/Intl Traveler<30days: No Traveled to known affect area: No History of Present Illness HPI 47-year-old male brought in under the Alfaro act with suicidal ideation. Patient is homeless and intoxicated. Reportedly he had torn a Solarcaine and half and was cutting his neck and left wrist in an attempt to kill himself. Patient is very uncooperative upon arrival. No significant history is able to be obtained at this time. Bleeding is currently controlled. Patient is allergic to tetanus. PFS Past Medical History Medical History: Unable to Obtain Arthritis: No Asthma: Yes Autoimmune Disease: No Blood Disorders: No Bipolar Disorder: Yes Anxiety: Yes Depression: Yes Heart Rhythm Problems: Yes (AFIB) Cancer: No Cardiovascular Problems: Yes High Cholesterol: No Chemotherapy: No Chest Pain: Yes Congestive Heart Failure: No COPD: Yes Cerebrovascular Accident: Yes Coronary Artery Disease: Yes Diabetes: No Diminished Hearing: No Endocrine: No Gastrointestinal Disorders: Yes GERD: No Glaucoma: No Genitourinary: No Headaches: No Hepatitis: No Hiatal Hernia: No Hypertension: Yes Immune Disorder: No Kidney Stones: No Musculoskeletal: No Neurologic: Yes Psychiatric: Yes Reproductive: No Respiratory: Yes Immunizations Current: Yes Migraines: Yes Myocardial Infarction: No Pancreatitis: Yes Radiation Therapy: No Renal Failure: No Schizophrenia: Yes Seizures: Yes Sickle Cell Disease: No Sleep Apnea: No Thyroid Disease: No Ulcer: No Past Surgical History Abdominal Surgery: Yes (GALL BLADDER REMOVAL) AICD: No Cardiac Surgery: No Cholecystectomy: Yes Ear Surgery: No Endocrine Surgery: No Genitourinary Surgery: No Gynecologic Surgery: No Insulin Pump: No Joint Replacement: No Oral Surgery: No Pacemaker: No Thoracic Surgery: No Social History Alcohol Use: Yes (DAILY) Tobacco Use: Yes Substance Use: Yes Allergies-Medications (Allergen,Severity, Reaction): Coded Allergies: tetanus toxoid, adsorbed (Unverified Allergy, Severe, 01/03/18) Reported Meds & Prescriptions Reported Meds & Active Scripts Active No Active Prescriptions or Reported Medications Review of Systems ROS Limitations: Intoxication, Uncooperative, Refused, Combative Except as stated in HPI: all other systems reviewed are Neg General / Constitutional: No: Fever Eyes: No: Visual changes HENT: No: Headaches Cardiovascular: No: Chest Pain or Discomfort Respiratory: No: Shortness of Breath Gastrointestinal: No: Abdominal Pain Genitourinary: No: Dysuria Musculoskeletal: No: Pain Skin: No Rash Neurologic: No: Weakness Psychiatric: No: Depression Endocrine: No: Polydipsia Hematologic/Lymphatic: No: Easy Bruising Physical Exam Exam Limitations: Intoxication, Uncooperative, Combative Narrative GENERAL: Patient appears in no obvious distress. He is intoxicated and uncooperative. SKIN: Warm and dry. Patient has superficial lacerations to the neck and left wrist none of which require closure. HEAD: Atraumatic. Normocephalic. EYES: Pupils equal and round. No scleral icterus. No injection or drainage. ENT: No nasal bleeding or discharge. Mucous membranes pink and moist. Pharynx is clear. NECK: Trachea midline. Supple CARDIOVASCULAR: Tachycardic rate and normal rhythm. RESPIRATORY: No accessory muscle use. Clear to auscultation. Breath sounds equal bilaterally. GASTROINTESTINAL: Abdomen soft, non-tender, nondistended. Hepatic and splenic margins not palpable. MUSCULOSKELETAL: Extremities without clubbing, cyanosis, or edema. No obvious deformities. NEUROLOGICAL: Awake and alert. No obvious cranial nerve deficits. Motor grossly within normal limits. Five out of 5 muscle strength in the arms and legs. Normal speech. PSYCHIATRIC: Intoxicated Data Data Last Documented VS Vital Signs Date Time Temp Pulse Resp B/P (MAP) Pulse Ox O2 Delivery O2 Flow Rate FiO2 01/03/18 12:15 98 01/03/18 11:29 18 97 01/03/18 10:04 Room Air 01/03/18 07:40 97.6 Orders Orders Complete Blood Count With Diff (01/03/18 07:33) Comprehensive Metabolic Panel (01/03/18 07:33) Thyroid Stimulating Hormone (01/03/18 07:33) Psych Screen (01/03/18 07:33) Drug Screen, Random Urine (01/03/18 07:33) Alcohol (Ethanol) (01/03/18 07:33) Lorazepam Inj (Ativan Inj) (01/03/18 07:45) Restraints Violent (01/03/18 07:38) Alcohol Withdrawal Asmt-Ciwa Q4HX18 (01/03/18 07:54) Flumazenil Inj (Romazicon Inj) (01/03/18 08:00) Lorazepam (Ativan) (01/03/18 08:00) Lorazepam Inj (Ativan Inj) (01/03/18 08:00) Lorazepam (Ativan) (01/03/18 08:00) Lorazepam Inj (Ativan Inj) (01/03/18 08:00) Lorazepam Inj (Ativan Inj) (01/03/18 08:00) Lorazepam Inj (Ativan Inj) (01/03/18 08:00) Electrocardiogram (01/03/18 ) Electrocardiogram (01/03/18 08:07) Ckmb (Isoenzyme) Profile (01/03/18 08:07) Magnesium (Mg) (01/03/18 08:07) Prothrombin Time / Inr (Pt) (01/03/18 08:07) Act Partial Throm Time (Ptt) (01/03/18 08:07) Troponin I (01/03/18 08:07) Ecg Monitoring (01/03/18 08:07) Bilateral Bp Monitoring (01/03/18 08:07) Iv Access Insert/Monitor (01/03/18 08:07) Oximetry (01/03/18 08:07) Oxygen Administration (01/03/18 08:07) Aspirin Chew (Aspirin Chew) (01/03/18 08:15) Sodium Chloride 0.9% Flush (Ns Flush) (01/03/18 08:15) Sodium Chlor 0.9% 1000 Ml Inj (Ns 1000 M (01/03/18 08:15) Thiamine Inj (Thiamine Inj) (01/03/18 08:15) Diltiazem Inj (Cardizem Inj) (01/03/18 08:15) Haloperidol Inj (Haldol Inj) (01/03/18 08:45) Diphenhydramine Inj (Benadryl Inj) (01/03/18 08:45) Diet Regular Basic (01/03/18 Breakfast) Sodium Chlor 0.9% 1000 Ml Inj (Ns 1000 M (01/03/18 09:45) Diltiazem Inj (Cardizem Inj) (01/03/18 11:00) CKMB (01/03/18 08:45) CKMB% (01/03/18 08:45) Diet Regular Basic (01/03/18 Lunch) Labs Laboratory Tests Test 01/03/18 08:45 01/03/18 10:15 White Blood Count 5.9 TH/MM3 Red Blood Count 4.70 MIL/MM3 Hemoglobin 9.3 GM/DL Hematocrit 31.6 % Mean Corpuscular Volume 67.3 FL Mean Corpuscular Hemoglobin 19.9 PG Mean Corpuscular Hemoglobin Concent 29.6 % Red Cell Distribution Width 22.3 % Platelet Count 320 TH/MM3 Mean Platelet Volume 8.7 FL Neutrophils (%) (Auto) 45.7 % Lymphocytes (%) (Auto) 40.2 % Monocytes (%) (Auto) 8.3 % Eosinophils (%) (Auto) 4.4 % Basophils (%) (Auto) 1.4 % Neutrophils # (Auto) 2.7 TH/MM3 Lymphocytes # (Auto) 2.4 TH/MM3 Monocytes # (Auto) 0.5 TH/MM3 Eosinophils # (Auto) 0.3 TH/MM3 Basophils # (Auto) 0.1 TH/MM3 CBC Comment DIFF FINAL Differential Comment Blood Urea Nitrogen 5 MG/DL Creatinine 0.88 MG/DL Random Glucose 83 MG/DL Total Protein 6.6 GM/DL Albumin 3.8 GM/DL Calcium Level 8.0 MG/DL Alkaline Phosphatase 105 U/L Aspartate Amino Transf (AST/SGOT) 38 U/L Alanine Aminotransferase (ALT/SGPT) 48 U/L Total Bilirubin 0.3 MG/DL Sodium Level 147 MEQ/L Potassium Level 4.0 MEQ/L Chloride Level 115 MEQ/L Carbon Dioxide Level 24.7 MEQ/L Anion Gap 7 MEQ/L Estimat Glomerular Filtration Rate 92 ML/MIN Magnesium Level 1.9 MG/DL Total Creatine Kinase 288 U/L Creatine Kinase MB 5.8 NG/ML Troponin I LESS THAN 0.02 NG/ML Thyroid Stimulating Hormone 3rd Gen 2.140 uIU/ML Ethyl Alcohol Level 252 MG/DL Prothrombin Time 11.5 SEC Prothromb Time International Ratio 1.1 RATIO Activated Partial Thromboplast Time 31.2 SEC [facility] Medical Decision Making Medical Screen Exam Complete: Yes Emergency Medical Condition: Yes Medical Record Reviewed: Yes Differential Diagnosis Alfaro act. Depression. Suicidal ideation. Intoxication. Possible A. fib with RVR. Narrative Course Order for restraints is placed. Patient is given 1 mg lorazepam IM. Labs ordered per psychiatric protocol including alcohol, in addition to cardiac panel, magnesium, and coagulation studies. EKG and chest x-ray is ordered. EKG shows atrial fibrillation with RVR. Rate is 111 Patient is given aspirin 324 mg chewable. Patient states he was given aspirin 324 mg in the ambulance. Patient is given 10 mg diltiazem IV. Patient is placed on the [facility] protocol. Psychiatric screen is ordered. 100 mg thiamine IV is ordered with 1000 mL of normal saline bolus. 5 mg of Haldol, and 25 mg of diphenhydramine are ordered. Labs show CBC with microcytic anemia which is shown to be chronic for this patient. Coagulation studies are normal. Chemistries show sodium 147, chloride of 115, BUN is 5, creatinine 0.88. Calcium is 8.0, AST is 38, ALT is 48. TSH is normal Serum EtOH is 252. Troponin is less than 0.02. Magnesium is 1.9 CK-MB is slightly elevated at 5.8. 1100 hrs. patient reevaluated and is sleeping comfortably. Heart rate remains in the low 100s to upper 90s per minute. Patient is given an additional 10 mg diltiazem IV. Patient is medically cleared for psychiatric evaluation. Diagnosis Primary Impression: Alcohol abuse with alcohol-induced mood disorder Additional Impressions: Chronic atrial fibrillation with RVR Medical clearance for psychiatric admission Scripts No Active Prescriptions or Reported Meds Condition: Stable Drew Nichole Jan 03, 2018 07:55
[2018-01-03] MEDS ORDERED: LORazepam 2 MG TAB PO PRN (08:00)
[2018-01-03] MEDS ORDERED: FLUMAZENIL 0.5 MG/5 ML VIAL IV PUSH PRN (08:00)
[2018-01-03] MEDS ORDERED: LORazepam 2 MG/ML VIAL IV PUSH PRN ×3 (08:00)
[2018-01-03] MEDS ORDERED: ASPIRIN 81 MG CHEW TAB PO ONE (08:15)
[2018-01-03] MEDS ORDERED: SODIUM CHLORIDE 0.9% FLUSH 10 ML FLUSH IVF PRN (08:15)
[2018-01-03] MEDS ORDERED: THIAMINE INJ 100 MG in SODIUM CHLORIDE 0.9% INJ 100 ML IV ONE (08:15)
[2018-01-03] MEDS ORDERED: DILTIAZEM HCL 25 MG/5 ML VIAL IV ONE ×2 (08:15→11:00)
[2018-01-03] MEDS ORDERED: SODIUM CHLOR 0.9% 1000 ML INJ 1,000 ML IV ONE ×2 (08:15→09:45)
[2018-01-03] MEDS ORDERED: diphenhydrAMINE HCL 50 MG/ML VIAL IV PUSH ONE (08:45)
[2018-01-03] MEDS ORDERED: HALOPERIDOL LACTATE 5 MG/ML AMP IM ONE (08:45)
[2018-01-03 09:07] LABS: AUTOMATED NEUTROPHIL # 2.7 TH/MM3 (1.8-7.7); BASOPHIL # 0.1 TH/MM3 (0-0.2); BASOPHIL % 1.4 % (0.0-2.0); EOSINOPHIL # 0.3 TH/MM3 (0-0.4); EOSINOPHIL % 4.4 % (0.0-4.0); HEMATOCRIT 31.6 % (39.0-51.0); HEMOGLOBIN 9.3 GM/DL (13.0-17.0); LYMPH % 40.2 % (9.0-44.0); LYMPHOCYTE # 2.4 TH/MM3 (1.0-4.8); MEAN CELL VOLUME 67.3 FL (80.0-100.0); MEAN CORPUSCULAR HEMOGLOBIN 19.9 PG (27.0-34.0); MEAN PLATELET VOLUME 8.7 FL (7.0-11.0); MONO % 8.3 % (0.0-8.0); MONOCYTE # 0.5 TH/MM3 (0-0.9); NEUT % 45.7 % (16.0-70.0); PLATELET COUNT 320 TH/MM3 (150-450); RED CELL DISTRIBUTION WIDTH 22.3 % (11.6-17.2); WHITE BLOOD COUNT 5.9 TH/MM3 (4.0-11.0)
[2018-01-03 09:15] LABS: MEAN CORPUSCULAR HGB CONC 29.6 % (32.0-36.0)
[2018-01-03 09:22] LABS: ALBUMIN 3.8 GM/DL (3.4-5.0); AST (GOT) 38 U/L (15-37); BICARBONATE 24.7 MEQ/L (21.0-32.0); BLOOD UREA NITROGEN 5 MG/DL (7-18); CHLORIDE 115 MEQ/L (98-107); CREATININE 0.88 MG/DL (0.60-1.30); GLOMERULAR FILTRATION RATE 92 ML/MIN (>89); GLUCOSE,RANDOM 83 MG/DL (74-106); SODIUM (NA) 147 MEQ/L (136-145)
[2018-01-03 09:33] LABS: ALKALINE PHOSPHATASE 105 U/L (45-117); ALT (GPT) 48 U/L (12-78); TOTAL BILIRUBIN ADULT 0.3 MG/DL (0.2-1.0); TOTAL PROTEIN 6.6 GM/DL (6.4-8.2)
[2018-01-03 10:47] LABS: INTERNATIONAL NORMALIZED RATIO 1.1 RATIO; PROTHROMBIN TIME - PATIENT 11.5 SEC (9.8-11.6)
[2018-01-03 11:41] LABS: MAGNESIUM 1.9 MG/DL (1.5-2.5)
[2018-01-03 11:43] LABS: TROPONIN I LESS THAN 0.02 NG/ML (0.02-0.05)
[2018-01-03] MEDS: LORazepam 2 MG/ML VIAL IV PUSH PRN ×2 (12:39→16:28)
[2018-01-03] MEDS ORDERED: PROMETHAZINE INJ 25 MG/ML VIAL IM ONE (18:45)
[2018-01-03] MEDS: LORazepam 1 MG TAB PO PRN ×2 (19:55→23:40)
[2018-01-03] MEDS ORDERED: DILTIAZEM HCL 60 MG TAB PO ONE (21:45)
[2018-01-04 05:29] VITALS: BP 129/84; PULSE 80; RESP 16; TEMP 99.6; O2SAT 96
[2018-01-04] MEDS ORDERED: DILTIAZEM HCL 60 MG TAB PO SCH (06:00)
[2018-01-04] MEDS ORDERED: IBUPROFEN 600 MG TAB PO PRN (06:15)
[2018-01-04] MEDS ORDERED: ONDANSETRON ODT 4 MG TAB PO PRN (06:15)
[2018-01-04 08:41] VITALS: BP 132/92; PULSE 110; TEMP 97.9; O2SAT 100
[2018-01-04] MEDS: LORazepam 1 MG TAB PO PRN (08:54)
[2018-01-04 09:15] VITALS: BP 141/90; PULSE 106; RESP 18; TEMP 97.8; O2SAT 98
[2018-01-04 09:30] VITALS: BP 138/95; PULSE 114; RESP 18; TEMP 97.9; O2SAT 97
--- NOTE | 2018-01-04 10:38 | PD ---
Physical Exam Time Seen by Provider: 10:[address] De Jesus has evaluated the patient, lifted Alfaro act and cleared the patient for discharge. Data Data Last Documented VS Vital Signs Date Time Temp Pulse Resp B/P (MAP) Pulse Ox O2 Delivery O2 Flow Rate FiO2 01/04/18 09:30 97.9 114 18 138/95 (109) 97 Room Air Orders Orders Complete Blood Count With Diff (01/03/18 07:33) Comprehensive Metabolic Panel (01/03/18 07:33) Thyroid Stimulating Hormone (01/03/18 07:33) Psych Screen (01/03/18 07:33) Drug Screen, Random Urine (01/03/18 07:33) Alcohol (Ethanol) (01/03/18 07:33) Lorazepam Inj (Ativan Inj) (01/03/18 07:45) Restraints Violent (01/03/18 07:38) Alcohol Withdrawal Asmt-Ciwa Q4HX18 (01/03/18 07:54) Flumazenil Inj (Romazicon Inj) (01/03/18 08:00) Lorazepam (Ativan) (01/03/18 08:00) Lorazepam Inj (Ativan Inj) (01/03/18 08:00) Lorazepam (Ativan) (01/03/18 08:00) Lorazepam Inj (Ativan Inj) (01/03/18 08:00) Lorazepam Inj (Ativan Inj) (01/03/18 08:00) Lorazepam Inj (Ativan Inj) (01/03/18 08:00) Electrocardiogram (01/03/18 ) Ckmb (Isoenzyme) Profile (01/03/18 08:07) Magnesium (Mg) (01/03/18 08:07) Prothrombin Time / Inr (Pt) (01/03/18 08:07) Act Partial Throm Time (Ptt) (01/03/18 08:07) Troponin I (01/03/18 08:07) Ecg Monitoring (01/03/18 08:07) Bilateral Bp Monitoring (01/03/18 08:07) Iv Access Insert/Monitor (01/03/18 08:07) Oximetry (01/03/18 08:07) Oxygen Administration (01/03/18 08:07) Aspirin Chew (Aspirin Chew) (01/03/18 08:15) Sodium Chloride 0.9% Flush (Ns Flush) (01/03/18 08:15) Sodium Chlor 0.9% 1000 Ml Inj (Ns 1000 M (01/03/18 08:15) Thiamine Inj (Thiamine Inj) (01/03/18 08:15) Diltiazem Inj (Cardizem Inj) (01/03/18 08:15) Haloperidol Inj (Haldol Inj) (01/03/18 08:45) Diphenhydramine Inj (Benadryl Inj) (01/03/18 08:45) Diet Regular Basic (01/03/18 Breakfast) Sodium Chlor 0.9% 1000 Ml Inj (Ns 1000 M (01/03/18 09:45) Diltiazem Inj (Cardizem Inj) (01/03/18 11:00) CKMB (01/03/18 08:45) CKMB% (01/03/18 08:45) Diet Regular Basic (01/03/18 Lunch) Diet Regular Basic (01/03/18 Dinner) Promethazine Inj (Phenergan Inj) (01/03/18 18:45) Diltiazem (Cardizem) (01/03/18 21:45) Diltiazem (Cardizem) (01/04/18 06:00) Diet Regular Basic (01/04/18 Breakfast) Ondansetron Odt (Zofran Odt) (01/04/18 06:15) Ibuprofen (Motrin) (01/04/18 06:15) Labs Laboratory Tests Test 01/03/18 08:45 01/03/18 10:15 01/03/18 16:10 White Blood Count 5.9 TH/MM3 Red Blood Count 4.70 MIL/MM3 Hemoglobin 9.3 GM/DL Hematocrit 31.6 % Mean Corpuscular Volume 67.3 FL Mean Corpuscular Hemoglobin 19.9 PG Mean Corpuscular Hemoglobin Concent 29.6 % Red Cell Distribution Width 22.3 % Platelet Count 320 TH/MM3 Mean Platelet Volume 8.7 FL Neutrophils (%) (Auto) 45.7 % Lymphocytes (%) (Auto) 40.2 % Monocytes (%) (Auto) 8.3 % Eosinophils (%) (Auto) 4.4 % Basophils (%) (Auto) 1.4 % Neutrophils # (Auto) 2.7 TH/MM3 Lymphocytes # (Auto) 2.4 TH/MM3 Monocytes # (Auto) 0.5 TH/MM3 Eosinophils # (Auto) 0.3 TH/MM3 Basophils # (Auto) 0.1 TH/MM3 CBC Comment DIFF FINAL Differential Comment Blood Urea Nitrogen 5 MG/DL Creatinine 0.88 MG/DL Random Glucose 83 MG/DL Total Protein 6.6 GM/DL Albumin 3.8 GM/DL Calcium Level 8.0 MG/DL Alkaline Phosphatase 105 U/L Aspartate Amino Transf (AST/SGOT) 38 U/L Alanine Aminotransferase (ALT/SGPT) 48 U/L Total Bilirubin 0.3 MG/DL Sodium Level 147 MEQ/L Potassium Level 4.0 MEQ/L Chloride Level 115 MEQ/L Carbon Dioxide Level 24.7 MEQ/L Anion Gap 7 MEQ/L Estimat Glomerular Filtration Rate 92 ML/MIN Magnesium Level 1.9 MG/DL Total Creatine Kinase 288 U/L Creatine Kinase MB 5.8 NG/ML Troponin I LESS THAN 0.02 NG/ML Thyroid Stimulating Hormone 3rd Gen 2.140 uIU/ML Ethyl Alcohol Level 252 MG/DL Prothrombin Time 11.5 SEC Prothromb Time International Ratio 1.1 RATIO Activated Partial Thromboplast Time 31.2 SEC Urine Opiates Screen NEG Urine Barbiturates Screen NEG Urine Amphetamines Screen NEG Urine Benzodiazepines Screen POS Urine Cocaine Screen POS Urine Cannabinoids Screen NEG MDM Supervised Visit with KENNETH: No Narrative Course Dr. De Jesus has evaluated the patient, lifted Angelina fernandez and cleared the patient for discharge. Patient contracts safety. Denies suicidal or homicidal ideations. Patient will be provided community resource packet to JON for follow-up. Has friends and family for support. Patient was medically cleared by alternate provider prior to psych screening. Patient has been evaluated by psychiatry and and is now cleared for discharge. Diagnosis Primary Impression: Alcohol abuse with alcohol-induced mood disorder Additional Impression: Chronic atrial fibrillation with RVR Referrals: [facility] (Out patient) [facility] Primary Care Physician Psychiatrist Anup [facility] Patient Instructions: A-fib (Atrial Fibrillation) (ED), Abuse of Alcohol (ED), Alcohol Dependence (ED), Alcohol Intoxication (ED), General Instructions Additional Instruction: Contract safety to your self and others Follow-up with psychiatry Follow-up with primary care provider Follow-up with Graham S[facility] Return to the emergency department immediately with worsening of symptoms Med/Other Pt SpecificInfo: No Change to Meds, No Meds Exist/No RX given Scripts No Active Prescriptions or Reported Meds Disposition: 01 DISCHARGE HOME Condition: Stable Soraida Kaplan Jan 04, 2018 10:38
--- NOTE | 2018-01-04 11:31 | PD.PSY.CON ---
Provisional Diagnosis Admission Date Date of consultation 01/04/2018 [place]. 1. Polysubstance abuse 2. History of mental illness including bipolar disorder, schizoaffective disorder and borderline personality disorder, presently stable [place]. 1. Reported history of borderline personality disorder as noted above History of Present Illness Service Psychiatry Consult Requested By Emergency department Reason for Consult Alfaro act Primary Care Physician Unknown HPI Mr. Esquivel is a 47-year-old male with a reported history of borderline personality, bipolar and schizoaffective disorder who presents under a Alfaro act by law enforcement alleging that the patient was intoxicated and cut himself. Injuries were superficial and did not require sutures. Reviewing the electronic medical record, I note that the patient was seen in consultation by the psychiatric nurse practitioner in the ED 3 days ago again for issues related to intoxication. Patient's alcohol level on presentation on this occasion was 252 and his urine toxicology was positive for benzodiazepines and cocaine. Patient seen and examined. Chart reviewed. Case discussed with nursing staff. No reported behavioral disturbance since he has sobered up. No suicidality or homicidality noted. On my examination this morning, the patient is clinically sober. He says of the circumstances of his presentation here "I just get drunk and get stupid." He denies any suicidal or homicidal ideation, intent or plan on direct questioning at this time and contracts for safety. I can elicit no depressive or hypomanic/manic symptoms. He reports that he has chronic auditory hallucinations that converse with him. He denies any command auditory hallucinations. His hallucinations are no worse than usual. I can elicit no delusional material. The remainder of the psychiatric ROS is negative. The patient is requesting discharge from the psychiatric emergency room this morning. He has no acute physical complaints. Past psychiatric history: Patient reports diagnoses as noted above. He follows with a psychiatrist in [place]. He denies a history of psychiatric admissions noting that they usually just keep him overnight and discharged him the next day. He does endorse a history of talia tonja suicide attempts in the past including by overdose and by jumping into traffic and off of a bridge. He also notes that he has cut himself in the past in a suicide attempt and notes that at that time he cut himself "the right way" i.e. longitudinally along the length of the forearm as opposed to perpendicularly to the length of the forearm as he has in the present case. Family history: The patient denies a family history of serious mental illness or suicide. Chemical dependency history: The patient admits to heavy drinking. He does endorse a history of DTs and withdrawal seizures. He also uses crack cocaine. He reports the benzodiazepines are from Klonopin that is prescribed to him. His longest sober time is 5 years. He is pre-contemplative to changing his pattern of use noting "I know how to do it, I just do not want to." Social history: The patient reports that he is visiting from [place]. He is single with no children. He has his GED. He is spiritual but not congregational. He denies any history. Denies any access to guns or firearms. He has soliciting charges in [place] but denies any other active legal issues. No reported history of violent crime. Review of Systems Except as stated in HPI: all other systems reviewed are Neg Past Family Social History Coded Allergies: tetanus toxoid, adsorbed (Unverified Allergy, Severe, 01/03/18) Past Medical History See electronic medical record Discontinued Scripts Diltiazem (Diltiazem) 60 Mg Tab, 60 MG PO QID for Angina for 30 Days, #120 TAB 0 Refills Prov:Noris Galicia DO 12/06/17 Patient's Strengths (min. 2) Attending to basic needs. Verbally fluent. Physical Exam Physical exam completed by ED provider. On my examination today, the patient appears to be in no acute physical distress. No signs of intoxication or withdrawal noted. I do note several superficial scratches running perpendicularly to the length of his left forearm, concentrated over the wrist. Laboratories and vital signs reviewed: Vital Signs Vital Signs Date Time Temp Pulse Resp B/P (MAP) Pulse Ox O2 Delivery O2 Flow Rate FiO2 01/04/18 10:55 01/04/18 09:30 97.9 114 18 97 Room Air Lab Results Test 01/03/18 16:10 Urine Opiates Screen NEG Urine Barbiturates Screen NEG Urine Amphetamines Screen NEG Urine Benzodiazepines Screen POS Urine Cocaine Screen POS Urine Cannabinoids Screen NEG Mental Status Examination Appearance: Appropriate Consciousness: Alert Orientation: x4 Motor Activity: Normal gait Speech: Unremarkable Language: Adequate Fund of Knowledge: Adequate Attention and Concentration: Adequate Memory: Unremarkable Mood: Appropriate Affect: Appropriate, Euthymic Thought Process & Associations: Intact, Logical, Linear Thought Content: Appropriate Hallucination Type: Auditory (Chronic, noncommand, no worse than usual) Delusion Type: None Suicidal Ideation: No Suicidal Plan: No Suicidal Intention: No Homicidal Ideation: No Homicidal Plan: No Homicidal Intention: No Mental Status Exam Remarks Insight and judgment are likely chronically fair to poor at best Assessment & Plan Problem List: (1) Polysubstance abuse ICD Codes: F19.10 - Other psychoactive substance abuse, uncomplicated (2) History of psychiatric disorder ICD Codes: Z86.59 - Personal history of other mental and behavioral disorders Assessment & Plan 47-year-old male with psychiatric history as detailed above who presents under Alfaro act. Patient superficially self injured while intoxicated. Now that he is clinically sober, he denies any suicidal or homicidal ideation. He contracts for safety. There is no evidence of unstable mental illness has defined under the Alfaro act in this patient at this time. There is no evidence of severe self-care deficit. Synthesizing this information, I powdered metal supervisor that the patient does not presently meet the Alfaro act criteria. I have lifted the Alfaro act. I have recommended outpatient mental health and chemical dependency follow-up. I have counseled the patient to abstain from substances of abuse, although he does seem pre-contemplative with regard to changing his pattern of use as noted above. I have counseled the patient to return to the psychiatric emergency room for any concerning psychiatric symptoms as part of a general safety plan. Patient is otherwise psychiatrically clear for discharge from the ED. Thank you very much for this consultation. Bridger Young MD Jan 04, 2018 11:31
--- NOTE | 2018-01-04 21:46 | EKG ---
Date Performed: 01/03/2018 Time Performed: 08:52:08 PTAGE: 47 years EKG: ATRIAL FIBRILLATION WITH RAPID VENTRICULAR RESPONSE ABNORMAL RHYTHM ECG PREVIOUS TRACING : 01/01/2018 00.49 Since the previous tracing, no significant change noted DOCTOR: Jovon Yu Interpretating Date/Time 01/04/2018 21:45:34
== END 2018-01-04 10:57 | disposition home or self-care (01) ==
LOC: NEPD 07:25 → NEPJ 01-04 10:57
DX: F10.14 Alcohol abuse with alcohol-induced mood disorder (principal); Y90.8 Blood alcohol level of 240 mg/100 ml or more; I48.2 Chronic atrial fibrillation; S10.91XA Abrasion of unspecified part of neck, initial encounter; S60.812A Abrasion of left wrist, initial encounter; X78.8XXA Intentional self-harm by other sharp object, initial encounter; F19.10 Other psychoactive substance abuse, uncomplicated; R94.31 Abnormal electrocardiogram [ECG] [EKG]; D50.9 Iron deficiency anemia, unspecified
CPT/HCPCS: 80053; 80307; 82550; 82552; 83735; 84443; 84484; 85025; 85610; 85730; 93005; 96361; 96365; 96372; 96375; 96376; 99284; J1200; J1630; J2060; J2550; J3411; J7030

== ENCOUNTER 2018-01-07 12:12 | Emergency (ER) | payer OTHER ==
[2018-01-07 12:26] VITALS: BP 140/89; PULSE 110; RESP 18; TEMP 98; O2SAT 99
[2018-01-07 12:57] VITALS: BP 142/88
--- NOTE | 2018-01-07 13:10 | PD ---
History of Present Illness Chief Complaint: Psychiatric Symptoms Time Seen by Provider: 12:51 Travel History International Travel<30 Days: No Contact w/Intl Traveler<30days: No Known affected area: No History of Present Illness: 47 y/o male transferred from [facility] under a Alfaro act for suicidal ideations. Patient states that his friend called an ambulance because he had chest pain and though he was in atrial fibrillation. During the ambulance ride the senior research associate make 11 attempts to start an intravenous line and the patient stated , " I wish I was " out of frustration. Patient stated that he was in the [facility] Emergency Department for "50 hours, waiting for the psychiatrist Dr. Terry." Patient is a chronic alcoholic with severe insomnia, borderline personality and Schizoaffective. He is managed by [facility] in [place] and is currently on : [place] 300 mg TID; Zoloft 100 mg qam : Thorazine 200 mg TID; Seroquel 800 mg qhs and Remeron 30 mg qhs. Patient presents calm and articulate. He denies any suicidal or homicidal ideations. Patient is single, no children and states , " I use cocaine and marijuana once in a while, but not on a regular basis." He is a cutter and has old montague to his left arm. States he has not cut himself recently. Patient states he feels alot better since they medically cleared him from [facility] and he knows that he was not having a "heart attack.: Patient is stable. Denies SI/HI. Denies AVH. He states that his psychiatric diagnoses are well controlled by his medications. He is apologized for the statement he made which cause the medical staff to have to send time with him when other people need care. Alfaro Act is lifted and patient will be discharged. He will continue to follow up with [facility] in [place]. Dx: Schizoaffective Borderline Personality Substance Use PFSH Past Medical History Arthritis: No Asthma: Yes Autoimmune Disease: No Blood Disorders: No Bipolar Disorder: Yes Anxiety: Yes Depression: Yes Heart Rhythm Problems: Yes (AFIB) Cancer: No Cardiovascular Problems: Yes High Cholesterol: No Chemotherapy: No Chest Pain: Yes Congestive Heart Failure: No COPD: Yes Cerebrovascular Accident: Yes Coronary Artery Disease: Yes Diabetes: No Diminished Hearing: No Endocrine: No Gastrointestinal Disorders: Yes GERD: No Glaucoma: No Genitourinary: No Headaches: No Hepatitis: No Hiatal Hernia: No Hypertension: Yes Immune Disorder: No Kidney Stones: No Musculoskeletal: No Neurologic: Yes Psychiatric: Yes Reproductive: No Respiratory: Yes Immunizations Current: Yes Migraines: Yes Myocardial Infarction: No Pancreatitis: Yes Radiation Therapy: No Renal Failure: No Schizophrenia: Yes Seizures: Yes Sickle Cell Disease: No Sleep Apnea: No Thyroid Disease: No Ulcer: No Past Surgical History Abdominal Surgery: Yes (GALL BLADDER REMOVAL) AICD: No Cardiac Surgery: No Cholecystectomy: Yes Ear Surgery: No Endocrine Surgery: No Genitourinary Surgery: No Gynecologic Surgery: No Insulin Pump: No Joint Replacement: No Oral Surgery: No Pacemaker: No Thoracic Surgery: No Psychiatric History Psychiatric History Hx Psychiatric Treatment[facility] TO RECORDS IN 2004 2005. HX OF [facility] IN 1999. History of Inpatient Treatment: Yes Social History Hx Alcohol Use: Yes (DAILY) Hx Tobacco Use: Yes Hx Substance Use: Yes Substance Use Type: Alcohol, Cocaine Hx of Substance Use Treatment: Yes Allergies-Medications (Allergen,Severity, Reaction): Coded Allergies: tetanus toxoid, adsorbed (Unverified Allergy, Severe, 01/03/18) Reported Meds & Prescriptions Reported Meds & Active Scripts Active No Active Prescriptions or Reported Medications Mental Status Examination Appearance: Appropriate, Disheveled Consciousness: Alert Motor Activity: Normal gait Speech: Unremarkable Language: Adequate Fund of Knowledge: Adequate Attention and Concentration: Adequate Memory: Unremarkable Mood: Appropriate, Good Affect: Appropriate, Euthymic Thought Process & Associations: Intact Thought Content: Appropriate Hallucination Type: None Delusion Type: None Suicidal Ideation: No Suicidal Plan: No Suicidal Intention: No Homicidal Ideation: No Homicidal Plan: No Homicidal Intention: No Insight: Adequate Judgment: Adequate [facility] Medical Decision Making Medical Record Reviewed: Yes Assessment/Plan Patient denies SI/HI. Denies AVH. Schizoaffective and chronic alcoholic that is followed by [facility] in [place]. Patient states he made the state, " I wish I was " after the senior research associate attempted an IV eleven times. He states that he is not suicidal and apologized for the inconvenience. Will lift the Alfaro Act and patient will follow up with [facility] in [place]. Dx: Schizoaffective Borderline Personality Substance Use. Request HC Surrog/Guard Advoc?: No Results Vital Signs Date Time Temp Pulse Resp B/P (MAP) Pulse Ox O2 Delivery O2 Flow Rate FiO2 01/07/18 12:26 98.0 110 18 140/89 (106) 99 Diagnosis Primary Impression: Schizoaffective disorder, bipolar type Additional Impressions: Borderline personality disorder Substance abuse Prescriptions No Active Prescriptions or Reported Meds Problem Qualifiers Kathya Levy Jan 07, 2018 13:10
--- NOTE | 2018-01-07 13:47 | PD ---
HPI Chief Complaint: Psychiatric Symptoms Time Seen by Provider: 13:44 Travel History International Travel<30 days: No Contact w/Intl Traveler<30days: No Traveled to known affect area: No History of Present Illness HPI This is a 47-year-old male who presents under Alfaro act transferred from [facility] for psychiatric evaluation. Reportedly the patient has a history of alcohol and crack abuse. He was being transferred to [facility] in order to be evaluated for atrial fibrillation with RVR and chest pain. Reportedly during his EMS transport he required numerous attempts at IV establishment and he reports that because of the IV attempts he said that he would rather than be poked again and he was therefore placed under Alfaro act. He was then admitted to [facility] for cardiology evaluation of his atrial fibrillation with RVR and eventually medically cleared in transferred here for psychiatric evaluation. Upon arriving the psychiatric team has immediately lifted his Alfaro act and is requesting that he be discharged. The patient is very adamant that he would like to leave and is verbally hostile on examination. He has no medical complaints at this time. He is denying any chest pain, shortness of breath, palpitations, lightheadedness, nausea, vomiting. He adamantly denies any suicidal homicidal ideation. PFSH Past Medical History Arthritis: No Asthma: Yes Autoimmune Disease: No Blood Disorders: No Bipolar Disorder: Yes Anxiety: Yes Depression: Yes Heart Rhythm Problems: Yes (AFIB) Cancer: No Cardiovascular Problems: Yes High Cholesterol: No Chemotherapy: No Chest Pain: Yes Congestive Heart Failure: No COPD: Yes Cerebrovascular Accident: Yes Coronary Artery Disease: Yes Diabetes: No Diminished Hearing: No Endocrine: No Gastrointestinal Disorders: Yes GERD: No Glaucoma: No Genitourinary: No Headaches: No Hepatitis: No Hiatal Hernia: No Hypertension: Yes Immune Disorder: No Kidney Stones: No Musculoskeletal: No Neurologic: Yes Psychiatric: Yes Reproductive: No Respiratory: Yes Immunizations Current: Yes Migraines: Yes Myocardial Infarction: No Pancreatitis: Yes Radiation Therapy: No Renal Failure: No Schizophrenia: Yes Seizures: Yes Sickle Cell Disease: No Sleep Apnea: No Thyroid Disease: No Ulcer: No Past Surgical History Abdominal Surgery: Yes (GALL BLADDER REMOVAL) AICD: No Cardiac Surgery: No Cholecystectomy: Yes Ear Surgery: No Endocrine Surgery: No Genitourinary Surgery: No Gynecologic Surgery: No Insulin Pump: No Joint Replacement: No Oral Surgery: No Pacemaker: No Thoracic Surgery: No Social History Alcohol Use: Yes (DAILY) Tobacco Use: Yes Substance Use: Yes Allergies-Medications (Allergen,Severity, Reaction): Coded Allergies: tetanus toxoid, adsorbed (Unverified Allergy, Severe, 01/03/18) Reported Meds & Prescriptions Reported Meds & Active Scripts Active No Active Prescriptions or Reported Medications Review of Systems Except as stated in HPI: all other systems reviewed are Neg Physical Exam Narrative GENERAL: This is a well-developed well-nourished male who appears agitated. SKIN: Warm and dry. HEAD: Atraumatic. Normocephalic. EYES: Pupils equal and round. No scleral icterus. No injection or drainage. ENT: No nasal bleeding or discharge. Mucous membranes pink and moist. NECK: Trachea midline. No JVD. CARDIOVASCULAR: Regular rate and rhythm. No murmur appreciated. RESPIRATORY: No accessory muscle use. Clear to auscultation. Breath sounds equal bilaterally. GASTROINTESTINAL: Abdomen soft, non-tender, nondistended. Hepatic and splenic margins not palpable. MUSCULOSKELETAL: No obvious deformities. No edema. NEUROLOGICAL: Awake and alert. No obvious cranial nerve deficits. Motor grossly within normal limits. Normal speech. PSYCHIATRIC: Insight and judgment appear reasonable. Data Data Last Documented VS Vital Signs Date Time Temp Pulse Resp B/P (MAP) Pulse Ox O2 Delivery O2 Flow Rate FiO2 01/07/18 12:57 87 16 142/88 (106) 99 01/07/18 12:26 98.0 [facility] Medical Decision Making Medical Screen Exam Complete: Yes Emergency Medical Condition: Yes Medical Record Reviewed: Yes Differential Diagnosis Adjustment reaction, major depressive disorder, acute psychosis, substance- induced mood disorder Narrative Course I reviewed this patient's lab work and other testing from [facility] Vito alberto. He has been medically cleared at the previous hospital and he has no new medical issues that would warrant further hospitalization. His Alfaro act has been lifted by the psychiatry team. He is stable for discharge. Diagnosis Primary Impression: Schizoaffective disorder, bipolar type Ruled Out: Borderline personality disorder Patient Instructions: General Instructions, Schizoaffective Disorder (ED), Borderline Personality Disorder (GEN) Departure Forms: Tests/Procedures Med/Other Pt SpecificInfo: No Change to Meds Scripts No Active Prescriptions or Reported Meds Disposition: 01 DISCHARGE HOME Condition: Stable Alfonzo Trinidad Jan 07, 2018 13:47
== END 2018-01-07 13:57 | disposition home or self-care (01) ==
LOC: NEPJ 12:12
DX: F25.0 Schizoaffective disorder, bipolar type (principal); Z72.0 Tobacco use
CPT/HCPCS: 99283

== ENCOUNTER 2018-01-16 13:10 | Emergency (ER) | payer OTHER ==
[~2018-01-16] VITALS: Ht 188 cm; Wt 108.2 kg
[2018-01-16 13:42] VITALS: BP 112/66; PULSE 130; RESP 20; TEMP 99.2; O2SAT 100
[2018-01-16 14:15] VITALS: BP 123/74; PULSE 135; RESP 17; O2SAT 100
--- NOTE | 2018-01-16 14:16 | RADRPT ---
EXAM DATE/TIME: 01/16/2018 14:02 [place] COMPARISON: No previous studies available for comparison. INDICATIONS : Chest pain. MEDICAL HISTORY : Carcinoma, lung. Chronic obstructive pulmonary disease. A-fib SURGICAL HISTORY : None. ENCOUNTER: Initial ACUITY: 2 weeks PAIN SCORE: 6/10 LOCATION: Left lower chest FINDINGS: PA and lateral views of the chest demonstrate the lungs to be symmetrically aerated without evidence of mass, infiltrate or effusion. The cardiomediastinal contours are unremarkable. Osseous structure s are intact. CONCLUSION: No acute disease. Mckinley Ramirez MD on January 16, 2018 at 14:13 Board Certified Radiologist. This report was verified electronically.
[2018-01-16] MEDS ORDERED: MIRT30TA PO (14:20)
[2018-01-16] MEDS ORDERED: LITH300C2 PO (14:20)
[2018-01-16] MEDS ORDERED: DILT60CA PO (14:20)
[2018-01-16] MEDS ORDERED: CHLO200T5 PO (14:20)
--- NOTE | 2018-01-16 14:21 | PD ---
HPI Chief Complaint: Chest Pain Time Seen by Provider: 13:58 Travel History International Travel<30 days: No Contact w/Intl Traveler<30days: No Traveled to known affect area: No History of Present Illness HPI This is a 47-year-old male with history of atrial fibrillation, COPD, reportedly with lung cancer, hypertension and seizures. He presents for evaluation of rapid heart rate and chest pain. He reports over the past 3-4 days he has had a rapid heartbeat, feels like his typical atrial fibrillation when his heart rate is elevated. He reports that since yesterday he has had a left-sided chest soreness which she reports is consistent with previous episodes of elevated heart rate. He reports that he has been compliant with his Cardizem 60 mg BID regimen. He reports that he moved to [facility] from [place] a few months ago and has not yet established care with a construction equipment overhauler or primary care physician. He endorses somewhat regular alcohol use but he reports over the past few months he has been cutting down on alcohol consumption. He reports over the past week he has had had a cough with productive green and brown sputum. He denies shortness of breath, nausea or vomiting, fevers or chills, abdominal pain, diarrhea or constipation. He has no other complaints at this time. PFSH Past Medical History Arthritis: No Asthma: Yes Autoimmune Disease: No Blood Disorders: No Bipolar Disorder: Yes Anxiety: Yes Depression: Yes Heart Rhythm Problems: Yes (AFIB) Cancer: No Cardiovascular Problems: Yes High Cholesterol: No Chemotherapy: No Chest Pain: Yes Congestive Heart Failure: No COPD: Yes Cerebrovascular Accident: Yes Coronary Artery Disease: Yes Diabetes: No Diminished Hearing: No Endocrine: No Gastrointestinal Disorders: Yes GERD: No Glaucoma: No Genitourinary: No Headaches: No Hepatitis: No Hiatal Hernia: No Hypertension: Yes Immune Disorder: No Kidney Stones: No Musculoskeletal: No Neurologic: Yes Psychiatric: Yes Reproductive: No Respiratory: Yes Immunizations Current: Yes Migraines: Yes Myocardial Infarction: No Pancreatitis: Yes Radiation Therapy: No Renal Failure: No Schizophrenia: Yes Seizures: Yes Sickle Cell Disease: No Sleep Apnea: No Thyroid Disease: No Ulcer: No Past Surgical History Abdominal Surgery: Yes (GALL BLADDER REMOVAL) AICD: No Cardiac Surgery: No Cholecystectomy: Yes Ear Surgery: No Endocrine Surgery: No Genitourinary Surgery: No Gynecologic Surgery: No Insulin Pump: No Joint Replacement: No Oral Surgery: No Pacemaker: No Thoracic Surgery: No Social History Alcohol Use: Yes (DAILY) Tobacco Use: Yes Substance Use: Yes Allergies-Medications (Allergen,Severity, Reaction): Coded Allergies: tetanus toxoid, adsorbed (Unverified Allergy, Severe, 01/03/18) metoprolol (Verified Adverse Reaction, Intermediate, hypotention, 01/16/18) Reported Meds & Prescriptions Reported Meds & Active Scripts Active Reported [place] Carbonate 300 Mg Cap 300 Mg PO BID Chlorpromazine (Chlorpromazine HCl) 200 Mg Tab 100 Mg PO HS PRN Mirtazapine 30 Mg Tab 30 Mg PO HS Diltiazem ER 12 HR (Diltiazem HCl) 60 Mg Caper 60 Mg PO BID Review of Systems Except as stated in HPI: all other systems reviewed are Neg Physical Exam Narrative GENERAL: Well-developed well-nourished male in no acute distress vital signs reviewed SKIN: Warm and dry. HEAD: Atraumatic. Normocephalic. EYES: Pupils equal and round. No scleral icterus. No injection or drainage. ENT: No nasal bleeding or discharge. Mucous membranes pink and moist. NECK: Trachea midline. No JVD. CARDIOVASCULAR: Irregular rate and rhythm. No murmur appreciated. RESPIRATORY: No accessory muscle use. Coarse breath sounds bilaterally breath sounds equal bilaterally. GASTROINTESTINAL: Abdomen soft, non-tender, nondistended. Hepatic and splenic margins not palpable. MUSCULOSKELETAL: No obvious deformities. No clubbing. No cyanosis. No edema. NEUROLOGICAL: Awake and alert. No obvious cranial nerve deficits. Motor grossly within normal limits. Normal speech. PSYCHIATRIC: Appropriate mood and affect; insight and judgment normal. Data Data Last Documented VS Vital Signs Date Time Temp Pulse Resp B/P (MAP) Pulse Ox O2 Delivery O2 Flow Rate FiO2 01/16/18 14:15 135 17 123/74 (90) 100 Room Air 01/16/18 13:42 99.2 Orders Orders Electrocardiogram (01/16/18 13:45) Basic Metabolic Panel (Bmp) (01/16/18 13:45) Ckmb (Isoenzyme) Profile (01/16/18 13:45) Complete Blood Count With Diff (01/16/18 13:45) Magnesium (Mg) (01/16/18 13:45) Prothrombin Time / Inr (Pt) (01/16/18 13:45) Act Partial Throm Time (Ptt) (01/16/18 13:45) Troponin I (01/16/18 13:45) Chest, Pa & Lat (01/16/18 13:45) Metoprolol Tartrate Inj (Lopressor Inj) (01/16/18 14:30) Sodium Chlorid 0.9% 500 Ml Inj (Ns 500 M (01/16/18 14:30) Sodium Chlorid 0.9% 500 Ml Inj (Ns 500 M (01/16/18 15:15) Diltiazem (Cardizem) (01/16/18 15:15) CKMB (01/16/18 14:24) CKMB% (01/16/18 14:24) Ed Discharge Order (01/16/18 16:00) Labs Laboratory Tests Test 01/16/18 14:24 White Blood Count 8.0 TH/MM3 Red Blood Count 4.79 MIL/MM3 Hemoglobin 9.5 GM/DL Hematocrit 32.1 % Mean Corpuscular Volume 67.0 FL Mean Corpuscular Hemoglobin 19.7 PG Mean Corpuscular Hemoglobin Concent 29.4 % Red Cell Distribution Width 21.6 % Platelet Count 452 TH/MM3 Mean Platelet Volume 8.4 FL Neutrophils (%) (Auto) 64.9 % Lymphocytes (%) (Auto) 20.2 % Monocytes (%) (Auto) 12.8 % Eosinophils (%) (Auto) 1.6 % Basophils (%) (Auto) 0.5 % Neutrophils # (Auto) 5.2 TH/MM3 Lymphocytes # (Auto) 1.6 TH/MM3 Monocytes # (Auto) 1.0 TH/MM3 Eosinophils # (Auto) 0.1 TH/MM3 Basophils # (Auto) 0.0 TH/MM3 CBC Comment DIFF FINAL Differential Comment Prothrombin Time 10.7 SEC Prothromb Time International Ratio 1.1 RATIO Activated Partial Thromboplast Time 24.7 SEC Blood Urea Nitrogen 11 MG/DL Creatinine 1.23 MG/DL Random Glucose 81 MG/DL Calcium Level 8.5 MG/DL Magnesium Level 1.9 MG/DL Sodium Level 141 MEQ/L Potassium Level 4.3 MEQ/L Chloride Level 109 MEQ/L Carbon Dioxide Level 25.6 MEQ/L Anion Gap 6 MEQ/L Estimat Glomerular Filtration Rate 63 ML/MIN Total Creatine Kinase 131 U/L Creatine Kinase MB 3.1 NG/ML Troponin I LESS THAN 0.02 NG/ML MDM Medical Decision Making Medical Screen Exam Complete: Yes Emergency Medical Condition: Yes Medical Record Reviewed: Yes Differential Diagnosis Atrial fibrillation with RVR versus PVCs versus sinus tachycardia versus ventricular tachycardia versus acute coronary syndrome versus pulmonary embolism versus pneumothorax versus pneumonia versus pericarditis versus myocarditis Narrative Course The patient was placed on ECG monitoring pulse oximetry. A 12-lead EKG was obtained revealing atrial fibrillation with RVR with a rate of 130. Lab work, chest x-ray ordered. The hospital currently does not have diltiazem IV and therefore IV metoprolol has been ordered for rate control. 500 ml normal saline bolus has been ordered. Patient was given a 5 mg dose of IV metoprolol which improved his rate to the low 100s however his blood pressure did drop some. Therefore additional 500 mL normal saline bolus was initiated. The patient was given a 90 mg oral dose of Cardizem for further rate control. The patient was monitored here for over 2 hours. His heart rate maintained in the high 90s/low 100s and the patient's symptoms resolved. At this point in time the plan will be to discharge him to follow-up with a construction equipment overhauler on an outpatient basis for further treatment of his chronic atrial fibrillation. He reports that he recently had his insurance issues fax and he says that he will be able to establish outpatient follow-up. He is stable for discharge. Diagnosis Primary Impression: Atrial fibrillation Additional Instructions: Continue Cardizem as prescribed. Stay well hydrated and well-nourished. Follow -up with a primary care physician and the construction equipment overhauler. Return for any emergent medical conditions. Med/Other Pt SpecificInfo: No Change to Meds Disposition: 01 DISCHARGE HOME Condition: Stable Alfonzo Trinidad Jan 16, 2018 14:21
[2018-01-16] MEDS ORDERED: SODIUM CHLORID 0.9% 500 ML INJ 500 ML IV ONE ×2 (14:30→15:15)
[2018-01-16] MEDS ORDERED: METOPROLOL TARTRATE 5 MG/5 ML VIAL IV PUSH PRN (14:30)
[2018-01-16] MEDS ORDERED: DILTIAZEM HCL 90 MG TAB PO ONE (15:15)
[2018-01-16 15:29] LABS: AUTOMATED NEUTROPHIL # 5.2 TH/MM3 (1.8-7.7); BASOPHIL % 0.5 % (0.0-2.0); EOSINOPHIL # 0.1 TH/MM3 (0-0.4); EOSINOPHIL % 1.6 % (0.0-4.0); HEMATOCRIT 32.1 % (39.0-51.0); HEMOGLOBIN 9.5 GM/DL (13.0-17.0); LYMPH % 20.2 % (9.0-44.0); LYMPHOCYTE # 1.6 TH/MM3 (1.0-4.8); MEAN CORPUSCULAR HEMOGLOBIN 19.7 PG (27.0-34.0); MEAN PLATELET VOLUME 8.4 FL (7.0-11.0); MONO % 12.8 % (0.0-8.0); NEUT % 64.9 % (16.0-70.0); PLATELET COUNT 452 TH/MM3 (150-450); RED BLOOD COUNT 4.79 MIL/MM3 (4.50-5.90); RED CELL DISTRIBUTION WIDTH 21.6 % (11.6-17.2)
[2018-01-16 15:30] LABS: MEAN CORPUSCULAR HGB CONC 29.4 % (32.0-36.0)
[2018-01-16 15:37] LABS: INTERNATIONAL NORMALIZED RATIO 1.1 RATIO; PROTHROMBIN TIME - PATIENT 10.7 SEC (9.8-11.6)
[2018-01-16 15:38] LABS: BICARBONATE 25.6 MEQ/L (21.0-32.0); BLOOD UREA NITROGEN 11 MG/DL (7-18); CALCIUM 8.5 MG/DL (8.5-10.1); CHLORIDE 109 MEQ/L (98-107); CREATININE 1.23 MG/DL (0.60-1.30); GLOMERULAR FILTRATION RATE 63 ML/MIN (>89); GLUCOSE,RANDOM 81 MG/DL (74-106); MAGNESIUM 1.9 MG/DL (1.5-2.5); SODIUM (NA) 141 MEQ/L (136-145)
[2018-01-16 15:42] LABS: TROPONIN I LESS THAN 0.02 NG/ML (0.02-0.05)
--- NOTE | 2018-01-16 15:47 | PD ---
Physical Exam Date Seen by Provider: Jan 16, 2018 Narrative This patient is here because of atrial fibrillation with rapid ventricular response. He has a known history of A. fib. He reports compliance with his medication. Data Data Last Documented VS Vital Signs Date Time Temp Pulse Resp B/P (MAP) Pulse Ox O2 Delivery O2 Flow Rate FiO2 01/16/18 14:15 135 17 123/74 (90) 100 Room Air 01/16/18 13:42 99.2 Orders Orders Electrocardiogram (01/16/18 13:45) Basic Metabolic Panel (Bmp) (01/16/18 13:45) Ckmb (Isoenzyme) Profile (01/16/18 13:45) Complete Blood Count With Diff (01/16/18 13:45) Magnesium (Mg) (01/16/18 13:45) Prothrombin Time / Inr (Pt) (01/16/18 13:45) Act Partial Throm Time (Ptt) (01/16/18 13:45) Troponin I (01/16/18 13:45) Chest, Pa & Lat (01/16/18 13:45) Metoprolol Tartrate Inj (Lopressor Inj) (01/16/18 14:30) Sodium Chlorid 0.9% 500 Ml Inj (Ns 500 M (01/16/18 14:30) Sodium Chlorid 0.9% 500 Ml Inj (Ns 500 M (01/16/18 15:15) Diltiazem (Cardizem) (01/16/18 15:15) CKMB (01/16/18 14:24) CKMB% (01/16/18 14:24) Labs Laboratory Tests Test 01/16/18 14:24 White Blood Count 8.0 TH/MM3 Red Blood Count 4.79 MIL/MM3 Hemoglobin 9.5 GM/DL Hematocrit 32.1 % Mean Corpuscular Volume 67.0 FL Mean Corpuscular Hemoglobin 19.7 PG Mean Corpuscular Hemoglobin Concent 29.4 % Red Cell Distribution Width 21.6 % Platelet Count 452 TH/MM3 Mean Platelet Volume 8.4 FL Neutrophils (%) (Auto) 64.9 % Lymphocytes (%) (Auto) 20.2 % Monocytes (%) (Auto) 12.8 % Eosinophils (%) (Auto) 1.6 % Basophils (%) (Auto) 0.5 % Neutrophils # (Auto) 5.2 TH/MM3 Lymphocytes # (Auto) 1.6 TH/MM3 Monocytes # (Auto) 1.0 TH/MM3 Eosinophils # (Auto) 0.1 TH/MM3 Basophils # (Auto) 0.0 TH/MM3 CBC Comment DIFF FINAL Differential Comment Prothrombin Time 10.7 SEC Prothromb Time International Ratio 1.1 RATIO Activated Partial Thromboplast Time 24.7 SEC Blood Urea Nitrogen 11 MG/DL Creatinine 1.23 MG/DL Random Glucose 81 MG/DL Calcium Level 8.5 MG/DL Magnesium Level 1.9 MG/DL Sodium Level 141 MEQ/L Potassium Level 4.3 MEQ/L Chloride Level 109 MEQ/L Carbon Dioxide Level 25.6 MEQ/L Anion Gap 6 MEQ/L Estimat Glomerular Filtration Rate 63 ML/MIN Total Creatine Kinase 131 U/L Troponin I LESS THAN 0.02 NG/ML MDM Supervised Visit with KENNETH: Yes Narrative Course I, Dr. Salazar, have reviewed the advance practice practitioner's documentation and am in agreement, met with the patient face to face, made the diagnosis, and the medical decision making was done by me. *My assessment and Findings: Patient is resting comfortably. His heart rate is around 100. He is in AF but this is his chronic underlying rhythm. Please see Alfonzo Trinidad PA-C's note for results of laboratory and radiographic evaluation, ED course, final diagnosis and disposition Tierra Salazar MD Jan 16, 2018 15:47
--- NOTE | 2018-01-16 20:42 | EKG ---
Date Performed: 01/16/2018 Time Performed: 14:11:24 PTAGE: 47 years EKG: ATRIAL FIBRILLATION WITH RAPID VENTRICULAR RESPONSE NONSPECIFIC ST & T-WAVE ABNORMALITY ABN ORMAL RHYTHM ECG NO PREVIOUS TRACING DOCTOR: Israel Garner Interpretating Date/Time 01/16/2018 20:41:59
== END 2018-01-16 16:10 | disposition home or self-care (01) ==
LOC: NEPC 13:10
DX: I48.0 Paroxysmal atrial fibrillation (principal); I10 Essential (primary) hypertension; I25.10 Atherosclerotic heart disease of native coronary artery without angina pectoris; J44.9 Chronic obstructive pulmonary disease, unspecified; F20.9 Schizophrenia, unspecified; F31.9 Bipolar disorder, unspecified; Z86.73 Personal history of transient ischemic attack (TIA), and cerebral infarction without residual deficits; Z85.118 Personal history of other malignant neoplasm of bronchus and lung; Z72.0 Tobacco use; Z88.8 Allergy status to other drugs, medicaments and biological substances; Z79.899 Other long term (current) drug therapy
CPT/HCPCS: 71046; 80048; 82550; 82552; 83735; 84484; 85025; 85610; 85730; 93005; 96361; 96374; 99285; J7040

== ENCOUNTER 2018-01-18 12:11 | Observation (INO) | payer OTHER ==
[~2018-01-18] VITALS: Ht 188 cm; Wt 110.5 kg
[~2018-01-18 12:11] MED LIST changes: +CHLO200T5 PO; +DILT60CA PO; -DILT60TA PO; +LITH300C2 PO; +MIRT30TA PO
[2018-01-18 12:18] VITALS: BP 124/90; PULSE 104; RESP 17; TEMP 98; O2SAT 100
--- NOTE | 2018-01-18 12:41 | PD ---
HPI Chief Complaint: Chest Pain Time Seen by Provider: 12:35 Travel History International Travel<30 days: No Contact w/Intl Traveler<30days: No Traveled to known affect area: No History of Present Illness HPI 47-year-old male patient with history of multiple medical issues, atrial fibrillation, hypertension, COPD, lung cancer, presents to the ER today because he states that he is having chest pains this morning which she rates at a 7 out of 10, was at [facility] and had his blood pressure checked and his heart rechecked and he states that the pharmacist told him it was a systolic in the 190s and his heart rate was in the 190s, and pharmacist had called the ambulance for him. They had give him aspirin and he states that the chest discomfort is better now, currently a 5 out of 10. He states he has had this chest discomfort intermittently. He states that he had been seen last week for A. fib with RVR and was sent home. He does not currently have a primary care physician or aromatherapist in the area. Modifying Factors: None Associated Signs & Symptoms: Chest pains, elevated heart rate Risk Factors: A. fib history PFSH Past Medical History Arthritis: No Asthma: Yes Atrial Fibrillation: Yes Autoimmune Disease: No Blood Disorders: No Bipolar Disorder: Yes Anxiety: Yes Depression: Yes Heart Rhythm Problems: Yes (AFIB) Cancer: No Cardiovascular Problems: Yes High Cholesterol: No Chemotherapy: No Chest Pain: Yes Congestive Heart Failure: No COPD: Yes Cerebrovascular Accident: Yes Coronary Artery Disease: Yes Diabetes: No Diminished Hearing: No Endocrine: No Gastrointestinal Disorders: Yes GERD: No Glaucoma: No Genitourinary: No Headaches: No Hepatitis: No Hiatal Hernia: No Hypertension: Yes Immune Disorder: No Kidney Stones: No Musculoskeletal: No Neurologic: Yes Psychiatric: Yes Reproductive: No Respiratory: Yes Immunizations Current: Yes Migraines: Yes Myocardial Infarction: No Pancreatitis: Yes Radiation Therapy: No Renal Failure: No Schizophrenia: Yes Seizures: Yes Sickle Cell Disease: No Sleep Apnea: No Thyroid Disease: No Ulcer: No Tetanus Vaccination: Unknown Influenza Vaccination: No ?: Not Past Surgical History Abdominal Surgery: Yes (GALL BLADDER REMOVAL) AICD: No Cardiac Surgery: No Cholecystectomy: Yes Ear Surgery: No Endocrine Surgery: No Genitourinary Surgery: No Gynecologic Surgery: No Insulin Pump: No Joint Replacement: No Oral Surgery: No Pacemaker: No Thoracic Surgery: No Social History Alcohol Use: No (pt states that he quit) Tobacco Use: Yes (1.5 ppd) Substance Use: No (denies) Allergies-Medications (Allergen,Severity, Reaction): Coded Allergies: tetanus toxoid, adsorbed (Unverified Allergy, Severe, 01/18/18) metoprolol (Verified Adverse Reaction, Intermediate, hypotention, 01/18/18) Reported Meds & Prescriptions Reported Meds & Active Scripts Active Reported [place] Carbonate 300 Mg Cap 300 Mg PO BID Chlorpromazine (Chlorpromazine HCl) 200 Mg Tab 100 Mg PO HS PRN Mirtazapine 30 Mg Tab 30 Mg PO HS Diltiazem ER 12 HR (Diltiazem HCl) 60 Mg Caper 60 Mg PO BID Review of Systems Except as stated in HPI: all other systems reviewed are Neg Physical Exam Narrative GENERAL: Well-developed middle-age male patient currently in mild distress. Awake and oriented 3. SKIN: Focused skin assessment warm/dry. HEAD: Atraumatic. Normocephalic. EYES: Pupils equal and round. No scleral icterus. No injection or drainage. ENT: No nasal bleeding or discharge. Mucous membranes pink and moist. NECK: Trachea midline. No JVD. Supple. CARDIOVASCULAR: Pulses are present and equal bilaterally. Fast and irregularly irregular. No murmur appreciated. RESPIRATORY: No accessory muscle use. Clear to auscultation. Breath sounds equal bilaterally. GASTROINTESTINAL: Abdomen soft, non-tender, nondistended. Hepatic and splenic margins not palpable. MUSCULOSKELETAL: No obvious deformities. No clubbing. No cyanosis. No edema. NEUROLOGICAL: Awake and alert. No obvious cranial nerve deficits. Motor grossly within normal limits. Normal speech. PSYCHIATRIC: Appropriate mood and affect; insight and judgment normal. Data Data Last Documented VS Vital Signs Date Time Temp Pulse Resp B/P (MAP) Pulse Ox O2 Delivery O2 Flow Rate FiO2 01/18/18 12:56 Room Air 01/18/18 12:18 98.0 104 17 124/90 (101) 100 Orders Orders Electrocardiogram (01/18/18 ) Electrocardiogram (01/18/18 12:35) Ckmb (Isoenzyme) Profile (01/18/18 12:35) Complete Blood Count With Diff (01/18/18 12:35) Comprehensive Metabolic Panel (01/18/18 12:35) Magnesium (Mg) (01/18/18 12:35) Prothrombin Time / Inr (Pt) (01/18/18 12:35) Act Partial Throm Time (Ptt) (01/18/18 12:35) Troponin I (01/18/18 12:35) Ecg Monitoring (01/18/18 12:35) Bilateral Bp Monitoring (01/18/18 12:35) Iv Access Insert/Monitor (01/18/18 12:35) Oximetry (01/18/18 12:35) Oxygen Administration (01/18/18 12:35) Sodium Chloride 0.9% Flush (Ns Flush) (01/18/18 12:45) Chest, Pa & Lat (01/18/18 12:35) CKMB (01/18/18 12:52) CKMB% (01/18/18 12:52) Labs Laboratory Tests Test 01/18/18 12:52 White Blood Count 8.3 TH/MM3 Red Blood Count 4.62 MIL/MM3 Hemoglobin 9.2 GM/DL Hematocrit 30.8 % Mean Corpuscular Volume 66.7 FL Mean Corpuscular Hemoglobin 20.0 PG Mean Corpuscular Hemoglobin Concent 30.0 % Red Cell Distribution Width 21.8 % Platelet Count 428 TH/MM3 Mean Platelet Volume 8.7 FL Neutrophils (%) (Auto) 65.7 % Lymphocytes (%) (Auto) 20.6 % Monocytes (%) (Auto) 13.0 % Eosinophils (%) (Auto) 0.3 % Basophils (%) (Auto) 0.4 % Neutrophils # (Auto) 5.5 TH/MM3 Lymphocytes # (Auto) 1.7 TH/MM3 Monocytes # (Auto) 1.1 TH/MM3 Eosinophils # (Auto) 0.0 TH/MM3 Basophils # (Auto) 0.0 TH/MM3 CBC Comment DIFF FINAL Differential Comment Blood Urea Nitrogen 7 MG/DL Creatinine 0.95 MG/DL Random Glucose 81 MG/DL Total Protein 6.1 GM/DL Albumin 3.3 GM/DL Calcium Level 8.1 MG/DL Magnesium Level 2.0 MG/DL Alkaline Phosphatase 81 U/L Aspartate Amino Transf (AST/SGOT) 39 U/L Alanine Aminotransferase (ALT/SGPT) 22 U/L Total Bilirubin 0.4 MG/DL Sodium Level 141 MEQ/L Potassium Level 4.7 MEQ/L Chloride Level 112 MEQ/L Carbon Dioxide Level 22.2 MEQ/L Anion Gap 7 MEQ/L Estimat Glomerular Filtration Rate 84 ML/MIN Total Creatine Kinase 149 U/L Creatine Kinase MB 2.7 NG/ML Troponin I LESS THAN 0.02 NG/ML MDM Medical Decision Making Medical Screen Exam Complete: Yes Emergency Medical Condition: Yes Medical Record Reviewed: Yes Interpretation(s) EKG shows A. fib with RVR at a rate of 100 bpm. No signs of acute ST elevations or depressions. Laboratory Tests Test 01/18/18 12:52 Hemoglobin 9.2 GM/DL (13.0-17.0) Hematocrit 30.8 % (39.0-51.0) Mean Corpuscular Volume 66.7 FL (80.0-100.0) Mean Corpuscular Hemoglobin 20.0 PG (27.0-34.0) Mean Corpuscular Hemoglobin Concent 30.0 % (32.0-36.0) Red Cell Distribution Width 21.8 % (11.6-17.2) Monocytes (%) (Auto) 13.0 % (0.0-8.0) Monocytes # (Auto) 1.1 TH/MM3 (0-0.9) Total Protein 6.1 GM/DL (6.4-8.2) Albumin 3.3 GM/DL (3.4-5.0) Calcium Level 8.1 MG/DL (8.5-10.1) Aspartate Amino Transf (AST/SGOT) 39 U/L (15-37) Chloride Level 112 MEQ/L (98-107) Estimat Glomerular Filtration Rate 84 ML/MIN (>89) Troponin I LESS THAN 0.02 NG/ML Last 24 hours Impressions Chest X-Ray 01/18/18 6505 Signed Impressions: Service Date/Time: Thursday, January 18, 2018 13:07 - CONCLUSION: Normal examination. Rao Faulkner MD Differential Diagnosis Chest pains: Dysrhythmias versus hypertensive urgency versus ACS Narrative Course EKG shows A. fib at a rate of [address]pm[address] Otherwise no acute ST elevations or depressions are identified. Lab work was fairly unremarkable and cardiac enzymes are negative. Chest x-ray did not show any signs of acute processes. Patient says his chest pain has improved with aspirin given by EMS. His heart rate is currently better. At this point, my plan would be to admit him to chest pain center for further evaluation to chest pain. Diagnosis Primary Impression: Atrial fibrillation with RVR Additional Impression: Chest pain Admitting Information Admitting Physician Requests: Admit Bernardino Rascon MD Jan 18, 2018 12:41
[2018-01-18] MEDS ORDERED: SODIUM CHLORIDE 0.9% FLUSH 10 ML FLUSH IVF PRN (12:45)
[2018-01-18 13:03] LABS: AUTOMATED NEUTROPHIL # 5.5 TH/MM3 (1.8-7.7); BASOPHIL % 0.4 % (0.0-2.0); EOSINOPHIL % 0.3 % (0.0-4.0); HEMATOCRIT 30.8 % (39.0-51.0); HEMOGLOBIN 9.2 GM/DL (13.0-17.0); LYMPH % 20.6 % (9.0-44.0); LYMPHOCYTE # 1.7 TH/MM3 (1.0-4.8); MEAN CELL VOLUME 66.7 FL (80.0-100.0); MEAN PLATELET VOLUME 8.7 FL (7.0-11.0); MONOCYTE # 1.1 TH/MM3 (0-0.9); NEUT % 65.7 % (16.0-70.0); PLATELET COUNT 428 TH/MM3 (150-450); RED BLOOD COUNT 4.62 MIL/MM3 (4.50-5.90); RED CELL DISTRIBUTION WIDTH 21.8 % (11.6-17.2); WHITE BLOOD COUNT 8.3 TH/MM3 (4.0-11.0)
--- NOTE | 2018-01-18 13:12 | RADRPT ---
EXAM DATE/TIME: 01/18/2018 13:07 [facility] COMPARISON: CHEST PA & LAT, January 16, 2018, 14:02. INDICATIONS : Chest pain. MEDICAL HISTORY : Carcinoma, lung. Chronic obstructive pulmonary disease. A-fib SURGICAL HISTORY : None. ENCOUNTER: Initial ACUITY: 1 day PAIN SCORE: 5/10 LOCATION: Bilateral chest FINDINGS: PA and lateral views of the chest demonstrate the lungs to be symmetrically aerated without evidence of mass, infiltrate or effusion. The cardiomediastinal contours are unremarkable. Osseous structure s are intact. CONCLUSION: Normal examination. Rao Faulkner MD on January 18, 2018 at 13:10 Board Certified Radiologist. This report was verified electronically.
[2018-01-18 13:29] LABS: ALBUMIN 3.3 GM/DL (3.4-5.0); ALKALINE PHOSPHATASE 81 U/L (45-117); ALT (GPT) 22 U/L (12-78); BICARBONATE 22.2 MEQ/L (21.0-32.0); BLOOD UREA NITROGEN 7 MG/DL (7-18); CALCIUM 8.1 MG/DL (8.5-10.1); CHLORIDE 112 MEQ/L (98-107); CREATININE 0.95 MG/DL (0.60-1.30); GLOMERULAR FILTRATION RATE 84 ML/MIN (>89); GLUCOSE,RANDOM 81 MG/DL (74-106); SODIUM (NA) 141 MEQ/L (136-145); TOTAL BILIRUBIN ADULT 0.4 MG/DL (0.2-1.0); TOTAL PROTEIN 6.1 GM/DL (6.4-8.2); TROPONIN I LESS THAN 0.02 NG/ML (0.02-0.05)
[2018-01-18 13:31] LABS: AST (GOT) 39 U/L (15-37)
[2018-01-18 14:20] LABS: INTERNATIONAL NORMALIZED RATIO 1.1 RATIO
--- NOTE | 2018-01-18 14:49 | HHI.HP ---
HPI Service Family Medicine Primary Care Physician No Primary Care Physician Admission Diagnosis Chest pain Diagnoses: International Travel<30 Days: No Contact w/Intl Traveler<30days: No Known Affected Area: No History of Present Illness 47 yo M with PMH of A fib, HTN, COPD, lung cancer, depression/anxiety, substance abuse with multiple ED visits over the last 2 months presenting to the ED with chest pain. Developed CP after walking across bridge. [place] his heart racing, felt anxious, shaking. Pain on left side of chest, radiated to back. Has chronic L shoulder pain. Was a 7 out of 10 at that time. He went to a [facility] to check his vitals and was told his BP was 190's/120's with HR in 140 's. Ambulance was called at that time. He was given an Aspirin that significantly improved his symptoms. Recently moved here from [place] so he doesn' t have a PCP or Custodian. Was seen in ED here 2 days ago with similar symptoms and was treated for Afib with RVR. Has had hypotension with Metoprolol in the past. States he takes his medicine as prescribed. Denies any substance use over last 3 weeks. Had one beer yesterday. (Garrick Quinonez MD R1) Review of Systems Constitutional: COMPLAINS OF: Fatigue, DENIES: Fever, Weight gain, Weight loss , Chills Eyes: DENIES: Blurred vision, Eye pain Ears, nose, mouth, throat: COMPLAINS OF: Running Nose, DENIES: Throat pain Respiratory: COMPLAINS OF: Cough (chronic), Wheezing Cardiovascular: COMPLAINS OF: Chest pain, Palpitations, DENIES: Syncope, Lower Extremity Edema Gastrointestinal: COMPLAINS OF: Abdominal pain (LLQ pain - feels he has a muscular strain), DENIES: Bloody stools, Constipation, Diarrhea, Nausea, Vomiting Genitourinary: DENIES: Hematuria, Dysuria Musculoskeletal: DENIES: Joint pain Integumentary: DENIES: Rash Neurologic: DENIES: Headache Psychiatric: COMPLAINS OF: Anxiety, DENIES: Depression, Suicidal Ideation, Homicidal Ideation (Garrick Quinonez MD R1) Past Family Social History Past Medical History Anxiety Depression Bipolar Disorder A. fib COPD CAD CHF Was told he had lung cancer at a hospital in the past, has never been treated for it. Alcohol,Tobacco and Cocaine Abuse Past Surgical History Cholecystectomy R ankle fracture repair Reported Medications Reported Meds & Active Scripts Active Reported [place] Carbonate 300 Mg Cap 300 Mg PO BID Chlorpromazine (Chlorpromazine HCl) 200 Mg Tab 100 Mg PO HS PRN Mirtazapine 30 Mg Tab 30 Mg PO HS Diltiazem ER 12 HR (Diltiazem HCl) 60 Mg Caper 60 Mg PO BID (Garrick Quinonez MD R1) Allergies: Coded Allergies: tetanus toxoid, adsorbed (Unverified Allergy, Severe, 01/18/18) Family History Father - MA Mother - HTN Social History Recently moved from [place], currently homeless Alcohol - was drinking "every day all day" until 2 weeks. Now states he drinks much less (one beer yesterday) Tobacco - 1.5 ppd for 30 years States he previously used cocaine, MJ but stopped 2 weeks (Garrick Quinonez MD R1) Physical Exam Vital Signs Vital Signs Date Time Temp Pulse Resp B/P (MAP) Pulse Ox O2 Delivery O2 Flow Rate FiO2 01/18/18 12:56 Room Air 01/18/18 12:18 98.0 104 17 124/90 (101) 100 Physical Exam GENERAL: This is a well-nourished, well-developed patient, in no apparent distress. SKIN: No rashes, ecchymoses or lesions. Cool and dry. HEAD: Atraumatic. Normocephalic. No temporal or scalp tenderness. EYES: Pupils equal round and reactive. Extraocular motions intact. No scleral icterus. No injection or drainage. ENT: Nose without bleeding, purulent drainage or septal hematoma. Throat without erythema, tonsillar hypertrophy or exudate. Uvula midline. Airway patent. NECK: Trachea midline. No JVD or lymphadenopathy. Supple, nontender, no meningeal signs. CARDIOVASCULAR: Irregularly irregular rhythm, rate in the 100's without murmurs , gallops, or rubs. RESPIRATORY: Breath sounds equal bilaterally. Faint crackles appreciated in R lung base. Diffuse wheezing appreciated.. GASTROINTESTINAL: Abdomen soft, non-tender, nondistended. No hepato-splenomegaly , or palpable masses. No guarding. MUSCULOSKELETAL: Extremities without clubbing, cyanosis. 1+ pitting edema to level on knee in BLE. No joint tenderness, effusion, or edema noted. No calf tenderness. Negative Homans sign bilaterally. NEUROLOGICAL: Awake and alert. Cranial nerves II through XII intact. Motor and sensory grossly within normal limits. Five out of 5 muscle strength in all muscle groups. Normal speech. Laboratory Laboratory Tests Test 01/18/18 12:52 01/18/18 13:59 White Blood Count 8.3 Red Blood Count 4.62 Hemoglobin 9.2 Hematocrit 30.8 Mean Corpuscular Volume 66.7 Mean Corpuscular Hemoglobin 20.0 Mean Corpuscular Hemoglobin Concent 30.0 Red Cell Distribution Width 21.8 Platelet Count 428 Mean Platelet Volume 8.7 Neutrophils (%) (Auto) 65.7 Lymphocytes (%) (Auto) 20.6 Monocytes (%) (Auto) 13.0 Eosinophils (%) (Auto) 0.3 Basophils (%) (Auto) 0.4 Neutrophils # (Auto) 5.5 Lymphocytes # (Auto) 1.7 Monocytes # (Auto) 1.1 Eosinophils # (Auto) 0.0 Basophils # (Auto) 0.0 CBC Comment DIFF FINAL Differential Comment Blood Urea Nitrogen 7 Creatinine 0.95 Random Glucose 81 Total Protein 6.1 Albumin 3.3 Calcium Level 8.1 Magnesium Level 2.0 Alkaline Phosphatase 81 Aspartate Amino Transf (AST/SGOT) 39 Alanine Aminotransferase (ALT/SGPT) 22 Total Bilirubin 0.4 Sodium Level 141 Potassium Level 4.7 Chloride Level 112 Carbon Dioxide Level 22.2 Anion Gap 7 Estimat Glomerular Filtration Rate 84 Total Creatine Kinase 149 Creatine Kinase MB 2.7 Troponin I LESS THAN 0.02 Prothrombin Time 11.0 Prothromb Time International Ratio 1.1 Activated Partial Thromboplast Time 21.9 (Garrick Quinonez MD R1) Result Diagram: 01/18/18 1252 01/18/18 1252 Imaging Last 48 hours Impressions Chest X-Ray 01/18/18 1235 Signed Impressions: Service Date/Time: Thursday, January 18, 2018 13:07 - CONCLUSION: Normal examination. Rao Faulkner MD (Garrick Quinonez MD R1) Caprini VTE Risk Assessment Caprini VTE Risk Assessment: Mod/High Risk (score >= 2) Caprini Risk Assessment Model Point Value = 1 Point Value = 2 Point Value = 3 Point Value = 5 Age 41-60 Minor surgery BMI > 25 kg/m2 Swollen legs Varicose veins or History of unexplained or recurrent spontaneous Oral contraceptives or hormone replacement Sepsis (< 1 month) Serious lung disease, including pneumonia (< 1 month) Abnormal pulmonary function Acute myocardial infarction Congestive heart failure (< 1 month) History of inflammatory bowel disease Medical patient at bed rest Age 61-74 Arthroscopic surgery Major open surgery (> 45 min) Laparoscopic surgery (> 45 min) Malignancy Confined to bed (> 72 hours) Immobilizing plaster cast Central venous access Age >= 75 History of VTE Family history of VTE Factor V Leiden Prothrombin [id number] Lupus anticoagulant Anticardiolipin antibodies Elevated serum homocysteine Heparin-induced thrombocytopenia Other congenital or acquired thrombophilia Stroke (< 1 month) Elective arthroplasty Hip, pelvis, or leg fracture Acute spinal cord injury (< 1 month) Prophylaxis Regimen Total Risk Factor Score Risk Level Prophylaxis Regimen 0-1 Low Early ambulation 2 Moderate Order ONE of the following: *Sequential Compression Device (SCD) *Heparin 5000 units SQ BID 3-4 Higher Order ONE of the following medications: *Heparin 5000 units SQ TID *Enoxaparin/Lovenox 40 mg SQ daily (WT < 150 kg, CrCl > 30 mL/min) *Enoxaparin/Lovenox 30 mg SQ daily (WT < 150 kg, CrCl > 10-29 mL/min) *Enoxaparin/Lovenox 30 mg SQ BID (WT < 150 kg, CrCl > 30 mL/min) AND/OR *Sequential Compression Device (SCD) 5 or more Highest Order ONE of the following medications: *Heparin 5000 units SQ TID (Preferred with Epidurals) *Enoxaparin/Lovenox 40 mg SQ daily (WT < 150 kg, CrCl > 30 mL/min) *Enoxaparin/Lovenox 30 mg SQ daily (WT < 150 kg, CrCl > 10-29 mL/min) *Enoxaparin/Lovenox 30 mg SQ BID (WT < 150 kg, CrCl > 30 mL/min) AND *Sequential Compression Device (SCD) (Garrick Quinonez MD R1) Assessment and Plan Assessment and Plan 47 yo M with PMH of Afib, COPD, CAD, polysubstance abuse presenting to ED with chest pain. Found to be in Afib with rate in the 110's on admission. Will admit for further management. Will consult cardiology Code Status DNR Discussed Condition With Dr. Minerva Nolan (Garrick Quinonez MD R1) Attending Attestation This 47 yo male was seen immediately after being seen initially by the medicine team and after having his case presented to me on 01-18-18. He is here for the past 1-2 months from [place] as he has family here, but he lives out of doors. He has chronic AF and has been on Cardizem as an OP. On the day of admission he had walked over a bridge and became dyspneic with chest discomfort and felt his heart racing, also pain radiated to left shoulder. He felt quite anxious. He went to a pharmacy and checked his BP which reportedly was markedly elevated. He was seen in ED here a few days ago as well. Physical exam is as noted in the resident note; my examination agrees with those findings. He is admitted for control of his BP and AF. Cardiology has been consulted. I agree with the plan as documented. (Minerva Nolan MD) Problem List: (1) Atrial fibrillation with RVR ICD Codes: I48.91 - Unspecified atrial fibrillation Status: Acute Plan: Presented with palpitations, chest pain Known history of Afib EKG on admission with HR at 102, in Afib Takes Cardizem 60mg po BID, states he took his AM dose Starting Cardizem 30mg po q6hr Consulting Cardiology Telemetry Serial EKG, Troponin TSH pending Echo performed during last hospitalization (november 2017) that showed LVH, EF of 25-30%. Will not repeat at this time Lovenox for anticoagulation (2) Chest pain ICD Codes: R07.9 - Chest pain, unspecified Status: Resolved Plan: Presenting with chest pain, palpitations. Improved in ambulance with Aspirin Initial ACS workup negative CXR on admission negative Will trend troponin, EKG See A fib plan above (3) Anemia ICD Codes: D64.9 - Anemia, unspecified Status: Chronic Plan: Hemoglobin of 9.2 on admission, Microcytic Denies bloody stools, hematemesis Known history of anemia from prior ER visits, likely chronic Ordering iron studies Will monitor for now (4) COPD (chronic obstructive pulmonary disease) ICD Codes: J44.9 - Chronic obstructive pulmonary disease, unspecified Status: Chronic Plan: History of COPD, heavy smoker Wheezing on exam CXR negative on admission Scheduling Duonebs Albuterol nebs PRN COPD education consulted (5) CAD (coronary artery disease) ICD Codes: I25.10 - Atherosclerotic heart disease of [place] coronary artery without angina pectoris Plan: Known history of CAD, denies prior [place] Lipid panel pending (6) Schizoaffective disorder, bipolar type ICD Codes: F25.0 - Schizoaffective disorder, bipolar type Status: Acute Plan: Known history of Bipolar disorder, has been hospitalized following a suicide attempt in the past UDS, ethanol level pending Continue home [place], Remeron (7) Substance abuse ICD Codes: F19.10 - Other psychoactive substance abuse, uncomplicated Status: Acute Plan: Known history of polysubstance abuse Denies using any illicit drugs in the past 2 weeks UDS, ethanol level pending (8) FEN Plan: No IVF at this time Will replete electrolytes as needed Regular diet Lovenox for DVT prophylaxis (Garrick Quinonez MD R1) Problem Qualifiers (1) Anemia: Qualified Codes: D64.9 - Anemia, unspecified Garrick Quinonez MD R1 Jan 18, 2018 14:49 Minerva Nolan MD Jan 19, 2018 09:59
[2018-01-18] MEDS ORDERED: SODIUM CHLORIDE 0.9% FLUSH 10 ML FLUSH IV FLUSH PRN (15:30)
[2018-01-18] MEDS ORDERED: RESP: ALBUTEROL 2.5 MG/3 ML NEB (PRN) INH (15:30)
[2018-01-18] MEDS ORDERED: ACETAMINOPHEN 325 MG TAB PO PRN (15:45)
[2018-01-18] MEDS ORDERED: NALOXONE HCL 0.4 MG/ML AMP IV PUSH PRN (15:45)
[2018-01-18] MEDS ORDERED: MORPHINE SULFATE 2 MG/ML SYRINGE IV PUSH PRN (15:45)
[2018-01-18] MEDS ORDERED: KETOROLAC TROMETHAMINE 30 MG/ML (IVP) VIAL IV PUSH PRN (15:45)
[2018-01-18 15:49] VITALS: BP 125/91; PULSE 112; RESP 22; O2SAT 94
[2018-01-18] MEDS: RESP: ALBUTEROL 2.5 MG/IPRATROPIUM 0.5 MG NEB (SCH) INH ×2 (16:00→20:37)
[2018-01-18] MEDS ORDERED: ENALAPRILAT 1.25 MG/ML VIAL IV PUSH PRN (16:00)
[2018-01-18] MEDS: NICOTINE 21 MG/24 HR PATCH T-DERMAL SCH (16:02)
--- NOTE | 2018-01-18 16:28 | MB ---
cc: Osito Dobbs MD DATE: 01/18/2018 HISTORY OF PRESENT ILLNESS: Haroon is a 47-year-old gentleman with history of COPD, who still smokes, history of atrial fibrillation, recently moved here from [place], not anticoagulated because he says he is "a cutter" referring to apparently injuring himself purposely with sharp objects. He presents with a chief complaint of shortness of breath, palpitations, sharp chest pain that lingers, moderate in intensity. He feels better since admission. Does not appear to be in any acute distress. Otherwise, denies any fevers, chills, cough, GI or bleeding, PND, orthopnea, syncope, or dizziness. PAST MEDICAL HISTORY: As per history of present illness. He also has a history of lung cancer, hypertension, history of CVA, CAD, migraine headache, pancreatitis, cholecystectomy. SOCIAL HISTORY: Smokes a pack and a half of cigarettes a day. Denies alcohol use. ALLERGIES: TETANUS AND METOPROLOL. MEDICATIONS PRIOR TO ADMISSION: [place] carbonate, chlorpromazine, mirtazapine, diltiazem 60 b.i.d. MEDICATIONS IN THE HOSPITAL: Cardizem 30 q. 6 hours p.o., albuterol, Lovenox 40 subQ q. 24 hours, nicotine patch. PHYSICAL EXAMINATION: VITAL SIGNS: Blood pressure 125/91, pulse ranging between 104/112, sats 94% on room air, temperature 98.0. GENERAL: He is alert and oriented x 3, in no acute distress. NECK: Supple. No JVD. No bruit. CARDIOVASCULAR: S1, S2. No murmurs, rubs, gallops. LUNGS: Clear to auscultation bilaterally. ABDOMEN: Soft, nontender, nondistended with positive bowel sounds. EXTREMITIES: No lower extremity edema. LABORATORY DATA: EKG shows AFib at a rate of 102 beats per minute, nonspecific ST-T wave changes. Chest x-ray is normal. White count 8.3, hemoglobin 9.2, hematocrit 30.8, platelet count 428. Sodium 141, potassium 4.7, chloride 112, bicarbonate 22.2, BUN 7, creatinine 0.95. Troponins less than 0.02. Albumin 3.3, AST is 39. INR is 1.1. DIAGNOSES: 1. Atrial fibrillation with rapid ventricular response. 2. Anemia. 3. Tobacco abuse. 4. Chronic obstructive pulmonary disease. 5. Atypical chest pain. 6. Elevated liver enzymes. 7. Bipolar disorder. DISCUSSION: At this point in time, the patient's heart rate is minimally elevated, 30 p.o. every 6 hours of Cardizem is appropriate. We can up titrate this as necessary. Would hold beta blockers. His heart rate elevation is partially explained by increased demand due to anemia. He is not an anticoagulation candidate due to his bipolar disease, history of self injury with sharp objects and anemia. Strongly recommend smoking cessation. We will continue to follow trends in his symptoms, hemodynamics, heart rate and hemoglobin. Osito Dobbs MD AWC/TL , 04:08 PM , 04:28 PM
[2018-01-18 16:56] VITALS: BP 131/91; PULSE 110; RESP 17; TEMP 98.3; O2SAT 99
[2018-01-18] MEDS: DILTIAZEM HCL 30 MG TAB PO SCH ×2 (17:01→23:40)
[2018-01-18] MEDS: ENOXAPARIN SODIUM 40 MG/0.4 ML SYRINGE SQ SCH (17:02)
[2018-01-18] MEDS: KETOROLAC TROMETHAMINE 30 MG/ML (IVP) VIAL IV PUSH PRN ×2 (17:08→23:41)
[2018-01-18 20:00] VITALS: BP 129/76; PULSE 113; RESP 20; TEMP 98.1; O2SAT 98
[2018-01-18 20:03] VITALS: PULSE 122
[2018-01-18 20:37] VITALS: O2SAT 97
[2018-01-18 20:51] LABS: % SATURATION IRON PROFILE 5.5 % (20-50); CHOLESTEROL 98 MG/DL (120-200); HDL CHOLESTEROL 38.8 MG/DL (40.0-60.0); IRON (FE) 23 MCG/DL (65-175); LDL CHOLESTEROL 47 MG/DL (0-99); TOTAL IRON BINDING CAPACITY 417 MCG/DL (250-450); TRIGLYCERIDES 60 MG/DL (42-150)
[2018-01-18 20:52] LABS: CHOLESTEROL/ HDL RATIO 2.52 RATIO
[2018-01-18] MEDS: SODIUM CHLORIDE 0.9% FLUSH 10 ML FLUSH IV FLUSH SCH (21:00)
[2018-01-18] MEDS: REMOVE OLD PATCH T-DERMAL SCH (21:00)
[2018-01-18] MEDS: MIRTAZAPINE 15 MG TAB PO SCH (22:10)
[2018-01-18] MEDS: LITHIUM CARBONATE 300 MG CAP PO SCH (22:10)
[2018-01-19] VITALS (16 sets, daily range): BP systolic 100–133; BP diastolic 68–87; PULSE 84–138; RESP 16–20; TEMP 98–99.1; O2SAT 96–99
[2018-01-19] MEDS: RESP: ALBUTEROL 2.5 MG/IPRATROPIUM 0.5 MG NEB (SCH) INH ×4 (03:45→22:18)
[2018-01-19] MEDS: DILTIAZEM HCL 30 MG TAB PO SCH (06:32)
[2018-01-19 06:46] LABS: HEMATOCRIT 31.4 % (39.0-51.0); HEMOGLOBIN 9.4 GM/DL (13.0-17.0); MEAN CELL VOLUME 66.3 FL (80.0-100.0); MEAN CORPUSCULAR HEMOGLOBIN 19.9 PG (27.0-34.0); MEAN CORPUSCULAR HGB CONC 30.1 % (32.0-36.0); MEAN PLATELET VOLUME 8.2 FL (7.0-11.0); PLATELET COUNT 449 TH/MM3 (150-450); RED BLOOD COUNT 4.73 MIL/MM3 (4.50-5.90); RED CELL DISTRIBUTION WIDTH 21.4 % (11.6-17.2); WHITE BLOOD COUNT 7.9 TH/MM3 (4.0-11.0)
[2018-01-19 07:16] LABS: BICARBONATE 21.8 MEQ/L (21.0-32.0); CALCIUM 8.4 MG/DL (8.5-10.1); CREATININE 0.99 MG/DL (0.60-1.30)
[2018-01-19] MEDS: LITHIUM CARBONATE 300 MG CAP PO SCH ×2 (08:55→20:18)
[2018-01-19] MEDS: SODIUM CHLORIDE 0.9% FLUSH 10 ML FLUSH IV FLUSH SCH ×2 (08:58→20:19)
[2018-01-19] MEDS: NICOTINE 21 MG/24 HR PATCH T-DERMAL SCH (08:58)
--- NOTE | 2018-01-19 09:49 | HHI.FPPN ---
Subjective Remarks Patient doing well this morning. Was startled from sleep in the morning and is not used to this, however he denies chest pain, nausea, vomiting, fever, chills , shortness of breath. Heart rate remains slightly elevated above 100. (Abner Nolan MD R3) Objective Vitals Vital Signs Date Time Temp Pulse Resp B/P (MAP) Pulse Ox O2 Delivery O2 Flow Rate FiO2 01/19/18 09:40 99 21 01/19/18 08:01 98.1 125 18 124/86 (99) 97 01/19/18 04:00 106 01/19/18 03:48 98 01/19/18 03:40 98.6 123 20 123/83 (96) 96 01/19/18 00:00 132 01/19/18 00:00 98.5 115 20 133/83 (100) 98 01/18/18 20:37 97 01/18/18 20:03 122 01/18/18 20:00 98.1 113 20 129/76 (93) 98 01/18/18 16:56 98.3 110 17 131/91 (104) 99 01/18/18 16:29 01/18/18 15:49 112 22 125/91 (102) 94 Room Air 01/18/18 12:56 Room Air 01/18/18 12:18 98.0 104 17 124/90 (101) 100 (Abner Nolan MD R3) Result Diagram: 01/19/18 0547 01/19/18 0547 Objective Remarks GENERAL: This is a well-nourished, slightly disheveled white male, no acute distress. SKIN: Cool and dry. HEAD: Atraumatic. Normocephalic. EYES: Pupils equal round and reactive. Extraocular motions intact. No scleral icterus. No injection or drainage. ENT: Nose without bleeding, purulent drainage or septal hematoma. Throat without erythema, tonsillar hypertrophy or exudate. Uvula midline. Airway patent. NECK: Trachea midline. No JVD or lymphadenopathy. Supple, nontender, no meningeal signs. CARDIOVASCULAR: Irregularly irregular rhythm, rate in the 100's without murmurs , gallops, or rubs. RESPIRATORY: Breath sounds equal bilaterally. Faint crackles appreciated in R lung base. Diffuse mild wheezing appreciated.. GASTROINTESTINAL: Abdomen soft, non-tender, nondistended. No hepato-splenomegaly , or palpable masses. No guarding. MUSCULOSKELETAL: Extremities without clubbing, cyanosis. 1+ pitting edema to level on knee in BLE. No joint tenderness, effusion, or edema noted. No calf tenderness. Negative Homans sign bilaterally. NEUROLOGICAL: Awake and alert. Cranial nerves II through XII intact. Motor and sensory grossly within normal limits. Five out of 5 muscle strength in all muscle groups. Normal speech. (Abner Nolan MD R3) A/P Assessment and Plan 47 yo M with PMH of Afib, COPD, CAD, polysubstance abuse presenting to ED with chest pain and A. fib. Cardiology consulted. Discharge Planning Pending rate control and cardiology recommendations. (Abner Nolan MD R3) Attending Attestation Patient seen and examined with Drs. Kyle Nolan and Jennifer Quinonez. Case reviewed and discussed with the resident team. Agree with the physical findings and the plan of care as discussed with me and documented in the resident note. (Minerva Nolan MD) Problem List: (1) Atrial fibrillation with RVR ICD Codes: I48.91 - Unspecified atrial fibrillation Status: Acute Plan: Increase Cardizem to 60 mg every 8 hours Not an anticoagulation candidate per cardiology given psych history Cardiology consulted Telemetry Troponin within normal limits Echo performed during last hospitalization (november 2017) that showed LVH, EF of 25-30%. Will not repeat at this time Lovenox for anticoagulation while in hospital Previous medication: At home, takes Cardizem 60mg po BID Trial of Cardizem 30 mg 4 times daily showed continued elevated heart rate (2) Anemia ICD Codes: D64.9 - Anemia, unspecified Status: Chronic Plan: Hemoglobin of 9.2 on admission, Microcytic Denies bloody stools, hematemesis Known history of anemia from prior ER visits, likely anemia of chronic disease with iron deficiency component Iron studies demonstrate low iron level Start ferrous sulfate (3) COPD (chronic obstructive pulmonary disease) ICD Codes: J44.9 - Chronic obstructive pulmonary disease, unspecified Status: Chronic Plan: History of COPD, heavy smoker Wheezing on exam CXR negative on admission Scheduling Duonebs Albuterol nebs PRN COPD education consulted Automatic Lathe [employer]ter extensively on smoking cessation (4) CAD (coronary artery disease) ICD Codes: I25.10 - Atherosclerotic heart disease of [place] coronary artery without angina pectoris Plan: Known history of CAD, denies prior [place] Lipid panel reviewed (5) Schizoaffective disorder, bipolar type ICD Codes: F25.0 - Schizoaffective disorder, bipolar type Status: Acute Plan: Known history of Bipolar disorder, has been hospitalized following a suicide attempt in the past Continue home [place], Remeron (6) Substance abuse ICD Codes: F19.10 - Other psychoactive substance abuse, uncomplicated Status: Acute Plan: Known history of polysubstance abuse Denies using any illicit drugs in the past 2 weeks UDS, ethanol level within normal limits (7) FEN Plan: No IVF at this time Will replete electrolytes as needed Regular diet Lovenox for DVT prophylaxis (8) Homeless ICD Codes: Z59.0 - Homelessness Status: Acute Plan: Case management assisted with discharge plans. (9) Chest pain ICD Codes: R07.9 - Chest pain, unspecified Status: Resolved Plan: Currently resolved. Presenting with chest pain, palpitations. Improved in ambulance with Aspirin ACS workup negative CXR on admission negative (Abner Nolan MD R3) Problem Qualifiers (1) Anemia: Qualified Codes: D64.9 - Anemia, unspecified Abner Nolan MD R3 Jan 19, 2018 09:49 Minerva Nolan MD Jan 19, 2018 10:03
[2018-01-19] MEDS: DILTIAZEM HCL 60 MG TAB PO SCH ×2 (12:41→20:18)
--- NOTE | 2018-01-19 16:37 | EKG ---
Date Performed: 01/18/2018 Time Performed: 12:23:56 PTAGE: 47 years EKG: ATRIAL FIBRILLATION WITH RAPID VENTRICULAR RESPONSE ABNORMAL RHYTHM ECG PREVIOUS TRACING 01/16/18 Since the previous tracing, no significant change noted DOCTOR: Osito Dobbs Interpretating Date/Time 01/19/2018 16:32:07
--- NOTE | 2018-01-19 16:38 | EKG ---
Date Performed: 01/19/2018 Time Performed: 03:41:36 PTAGE: 47 years EKG: Atrial fibrillation with rapid ventricular response Abnormal ECG PREVIOUS TRACING : 01/18/2018 21.20 Since the previous tracing, no significant change noted DOCTOR: Osito Dobbs Interpretating Date/Time 01/19/2018 16:32:24
--- NOTE | 2018-01-19 16:38 | EKG ---
Date Performed: 01/18/2018 Time Performed: 21:20:53 PTAGE: 47 years EKG: ATRIAL FIBRILLATION WITH RAPID VENTRICULAR RESPONSE ABNORMAL RHYTHM ECG PREVIOUS TRACING : 01/18/2018 12.23 Since the previous tracing, no significant change noted DOCTOR: Osito Dobbs Interpretating Date/Time 01/19/2018 16:32:16
--- NOTE | 2018-01-19 17:19 | PD.CARD.PN ---
Subjective Subjective Remarks alert in nad, appears comfortable Objective Medications Current Medications Medications (Trade) Dose Ordered Sig/Claire Route Start Time Stop Time Status Last Admin (NS Flush) 2 ml UNSCH PRN IV FLUSH 01/18/18 15:30 (NS Flush) 2 ml BID IV FLUSH 01/18/18 21:00 01/19/18 08:58 (Lovenox Inj) 40 mg Q24H SQ 01/18/18 17:00 01/18/18 17:02 (Duoneb Neb) 1 ampule Q6HR NEB INH 01/18/18 16:00 01/19/18 15:13 (Albuterol Neb) 2.5 mg Q2HR NEB PRN INH 01/18/18 15:30 (Habitrol 21 Mg Patch.24 Hr) 1 patch DAILY T-DERMAL 01/18/18 15:30 01/19/18 08:58 Miscellaneous Information 1 HS T-DERMAL 01/18/18 21:00 01/18/18 21:00 ([place] Carbonate) 300 mg BID PO 01/18/18 21:00 01/19/18 08:55 (Remeron) 30 mg HS PO 01/18/18 21:00 01/18/18 22:10 (Tylenol) 650 mg Q6H PRN PO 01/18/18 15:45 (Toradol Inj) 15 mg Q6H PRN IV PUSH 01/18/18 15:45 01/23/18 15:44 (Toradol Inj) 30 mg Q6H PRN IV PUSH 01/18/18 15:45 01/23/18 15:44 01/18/18 23:41 (Morphine Inj) 4 mg Q3H PRN IV PUSH 01/18/18 15:45 (Narcan Inj) 0.4 mg UNSCH PRN IV PUSH 01/18/18 15:45 (Vasotec Inj) 1.25 mg Q6H PRN IV PUSH 01/18/18 16:00 (Cardizem) 60 mg Q8HR PO 01/19/18 13:00 01/19/18 12:41 (Ferrous Sulfate) 325 mg DAILY PO 01/20/18 12:00 Vital Signs / I&O Vital Signs Date Time Temp Pulse Resp B/P (MAP) Pulse Ox O2 Delivery O2 Flow Rate FiO2 01/19/18 16:01 99.1 138 17 114/73 (87) 97 01/19/18 13:17 97 Room Air 01/19/18 13:07 110 01/19/18 12:02 98.0 134 18 100/69 (79) 97 01/19/18 09:40 99 21 01/19/18 08:01 98.1 125 18 124/86 (99) 97 01/19/18 08:00 105 01/19/18 04:00 106 01/19/18 03:48 98 01/19/18 03:40 98.6 123 20 123/83 (96) 96 01/19/18 00:00 132 01/19/18 00:00 98.5 115 20 133/83 (100) 98 01/18/18 20:37 97 01/18/18 20:03 122 01/18/18 20:00 98.1 113 20 129/76 (93) 98 Laboratory GENERAL: SKIN: Warm and dry. HEAD: Normocephalic. EYES: No scleral icterus. No injection or drainage. NECK: Supple, trachea midline. No JVD or lymphadenopathy. CARDIOVASCULAR: Regular rate and rhythm without murmurs, gallops, or rubs. RESPIRATORY: Breath sounds equal bilaterally. No accessory muscle use. GASTROINTESTINAL: Abdomen soft, non-tender, nondistended. MUSCULOSKELETAL: No cyanosis, or edema. BACK: Nontender without obvious deformity. No CVA tenderness. Laboratory Tests Test 01/18/18 21:22 01/19/18 05:47 Troponin I LESS THAN 0.02 NG/ML LESS THAN 0.02 NG/ML White Blood Count 7.9 TH/MM3 Red Blood Count 4.73 MIL/MM3 Hemoglobin 9.4 GM/DL Hematocrit 31.4 % Mean Corpuscular Volume 66.3 FL Mean Corpuscular Hemoglobin 19.9 PG Mean Corpuscular Hemoglobin Concent 30.1 % Red Cell Distribution Width 21.4 % Platelet Count 449 TH/MM3 Mean Platelet Volume 8.2 FL Blood Urea Nitrogen 8 MG/DL Creatinine 0.99 MG/DL Random Glucose 81 MG/DL Calcium Level 8.4 MG/DL Sodium Level 142 MEQ/L Potassium Level 4.1 MEQ/L Chloride Level 112 MEQ/L Carbon Dioxide Level 21.8 MEQ/L Anion Gap 8 MEQ/L Estimat Glomerular Filtration Rate 80 ML/MIN Assessment and Plan Assessment and Plan 1.) Afib - rate not controlled yet, cardizem increased to 60 mg tid, not ac candidate due to anemia, h/o purposely cutting himself, multiple psychiatric disorders Osito Dobbs MD Jan 19, 2018 17:19
[2018-01-19] MEDS: ENOXAPARIN SODIUM 40 MG/0.4 ML SYRINGE SQ SCH (18:45)
[2018-01-19] MEDS ORDERED: DIGOXIN 0.5 MG/2 ML VIAL IV PUSH ONE (19:15)
[2018-01-19] MEDS: MIRTAZAPINE 15 MG TAB PO SCH (20:18)
[2018-01-19] MEDS: REMOVE OLD PATCH T-DERMAL SCH (20:19)
[2018-01-20] VITALS (11 sets, daily range): BP systolic 110–139; BP diastolic 74–89; PULSE 88–117; RESP 16–20; TEMP 98.3–99.3; O2SAT 97–98
[2018-01-20] MEDS: RESP: ALBUTEROL 2.5 MG/IPRATROPIUM 0.5 MG NEB (SCH) INH ×4 (03:30→22:22)
[2018-01-20] MEDS: DILTIAZEM HCL 60 MG TAB PO SCH ×2 (05:09→12:54)
[2018-01-20] MEDS: LITHIUM CARBONATE 300 MG CAP PO SCH ×2 (09:00→20:31)
[2018-01-20] MEDS: NICOTINE 21 MG/24 HR PATCH T-DERMAL SCH (09:00)
[2018-01-20] MEDS: SODIUM CHLORIDE 0.9% FLUSH 10 ML FLUSH IV FLUSH SCH ×2 (09:00→20:32)
--- NOTE | 2018-01-20 09:39 | HHI.FPPN ---
Subjective Remarks Pt seen and examined this morning. Received Digoxin x1 overnight for tachycardia. Reports heart rate feels better controlled. Denies any fever/chills , chest pain, SOB, abdominal pain, leg pain. Reports being on several different psychiatry medications that he's not getting. (Arash Venegas MD R2) Objective Vitals Vital Signs Date Time Temp Pulse Resp B/P (MAP) Pulse Ox O2 Delivery O2 Flow Rate FiO2 01/20/18 05:08 98.4 97 16 113/85 (94) 98 01/20/18 03:45 104 01/19/18 23:45 98.8 107 16 119/68 (85) 98 01/19/18 23:43 99 01/19/18 22:20 99 21 01/19/18 21:09 98.4 84 16 125/87 (100) 97 01/19/18 19:55 Room Air 01/19/18 19:47 114 01/19/18 19:17 128 01/19/18 19:17 97 Room Air 01/19/18 16:01 99.1 138 17 114/73 (87) 97 01/19/18 13:17 97 Room Air 01/19/18 13:07 110 01/19/18 12:02 98.0 134 18 100/69 (79) 97 01/19/18 09:40 99 21 I/O 01/19/18 01/19/18 01/19/18 01/20/18 01/20/18 01/20/18 07:00 15:00 23:00 07:00 15:00 23:00 Intake Total 720 ml 660 ml Balance 720 ml 660 ml Intake Oral 720 ml 660 ml # Voids 3 2 # Bowel Movements 2 0 (Arash Venegas MD R2) Result Diagram: 01/19/18 0547 01/19/18 0547 Objective Remarks GENERAL: This is a well-nourished, slightly disheveled white male, no acute distress. SKIN: Cool and dry. CARDIOVASCULAR: Irregularly irregular rhythm, rate in the 100's without murmurs , gallops, or rubs. RESPIRATORY: Breath sounds equal bilaterally. Diffuse mild wheezing appreciated.. GASTROINTESTINAL: Abdomen soft, non-tender, nondistended. No guarding. MUSCULOSKELETAL: Extremities without clubbing, cyanosis. 1+ pitting edema to level on knee in BLE. NEUROLOGICAL: Awake and alert. Normal speech. (Arash Venegas MD R2) A/P Assessment and Plan 47 yo M with PMH of Afib, COPD, CAD, polysubstance abuse presenting to ED with chest pain and A. fib. Cardiology consulted. Discharge Planning Pending rate control and cardiology recommendations. Possibly today pending psych evaluation (Arash Venegas MD R2) Attending Attestation Patient was seen and examined, discussed with the medicine team. He complains of some cramping in his right leg but otherwise slept fairly well and feels better each day. He has requested refills for his psych meds but we are uncertain of the medications he is on as well as the doses, thus we will seek the advice of psychiatry. I agree with the physical findings as documented in the resident's note, and I agree with the plan. (Minerva Nolan MD) Problem List: (1) Atrial fibrillation with RVR ICD Codes: I48.91 - Unspecified atrial fibrillation Status: Acute Plan: Continue Cardizem 60 mg every 8 hours Not an anticoagulation candidate per cardiology given psych history Cardiology consulted-appreciate recs Telemetry Troponin within normal limits Echo performed during last hospitalization (november 2017) that showed LVH, EF of 25-30%. Will not repeat at this time Lovenox for anticoagulation while in hospital Previous medication: At home, takes Cardizem 60mg po BID Trial of Cardizem 30 mg 4 times daily showed continued elevated heart rate (2) Anemia ICD Codes: D64.9 - Anemia, unspecified Status: Chronic Plan: Hemoglobin of 9.2 on admission, Microcytic. Stable. Denies bloody stools, hematemesis Known history of anemia from prior ER visits, likely anemia of chronic disease with iron deficiency component Iron studies demonstrate low iron level Continue ferrous sulfate (3) COPD (chronic obstructive pulmonary disease) ICD Codes: J44.9 - Chronic obstructive pulmonary disease, unspecified Status: Chronic Plan: History of COPD, heavy smoker Wheezing on exam CXR negative on admission Scheduling Duonebs Albuterol nebs PRN COPD education consulted Operating Systems Specialist extensively on smoking cessation (4) CAD (coronary artery disease) ICD Codes: I25.10 - Atherosclerotic heart disease of [place] coronary artery without angina pectoris Plan: Known history of CAD, denies prior [place] Lipid panel reviewed (5) Schizoaffective disorder, bipolar type ICD Codes: F25.0 - Schizoaffective disorder, bipolar type Status: Acute Plan: Known history of Bipolar disorder, has been hospitalized following a suicide attempt in the past Continue home [place], [place] Psych consulted for med evaluation and follow-up (6) Substance abuse ICD Codes: F19.10 - Other psychoactive substance abuse, uncomplicated Status: Acute Plan: Known history of polysubstance abuse Denies using any illicit drugs in the past 2 weeks UDS, ethanol level within normal limits (7) Homeless ICD Codes: Z59.0 - Homelessness Status: Acute Plan: Case management assisting with discharge plans. (8) FEN Plan: No IVF at this time Will replete electrolytes as needed Regular diet Lovenox for DVT prophylaxis (Arash Venegas MD R2) Problem Qualifiers (1) Anemia: Qualified Codes: D64.9 - Anemia, unspecified Arash Venegas MD R2 Jan 20, 2018 09:39 Minerva Nolan MD Jan 20, 2018 11:10
--- NOTE | 2018-01-20 10:46 | PD.CARD.PN ---
Subjective Subjective Remarks alert in nad, appears comfortable Objective Medications Current Medications Medications (Trade) Dose Ordered Sig/Claire Route Start Time Stop Time Status Last Admin (NS Flush) 2 ml UNSCH PRN IV FLUSH 01/18/18 15:30 (NS Flush) 2 ml BID IV FLUSH 01/18/18 21:00 01/20/18 09:00 (Lovenox Inj) 40 mg Q24H SQ 01/18/18 17:00 01/19/18 18:45 (Duoneb Neb) 1 ampule Q6HR NEB INH 01/18/18 16:00 01/20/18 09:35 (Albuterol Neb) 2.5 mg Q2HR NEB PRN INH 01/18/18 15:30 (Habitrol 21 Mg Patch.24 Hr) 1 patch DAILY T-DERMAL 01/18/18 15:30 01/20/18 09:00 Miscellaneous Information 1 HS T-DERMAL 01/18/18 21:00 01/19/18 20:19 ([place] Carbonate) 300 mg BID PO 01/18/18 21:00 01/20/18 09:00 (Remeron) 30 mg HS PO 01/18/18 21:00 01/19/18 20:18 (Tylenol) 650 mg Q6H PRN PO 01/18/18 15:45 (Toradol Inj) 15 mg Q6H PRN IV PUSH 01/18/18 15:45 01/23/18 15:44 (Toradol Inj) 30 mg Q6H PRN IV PUSH 01/18/18 15:45 01/23/18 15:44 01/18/18 23:41 (Morphine Inj) 4 mg Q3H PRN IV PUSH 01/18/18 15:45 (Narcan Inj) 0.4 mg UNSCH PRN IV PUSH 01/18/18 15:45 (Vasotec Inj) 1.25 mg Q6H PRN IV PUSH 01/18/18 16:00 (Cardizem) 60 mg Q8HR PO 01/19/18 13:00 01/20/18 05:09 (Ferrous Sulfate) 325 mg DAILY PO 01/20/18 12:00 Vital Signs / I&O Vital Signs Date Time Temp Pulse Resp B/P (MAP) Pulse Ox O2 Delivery O2 Flow Rate FiO2 01/20/18 09:35 97 21 01/20/18 08:10 98.3 88 19 139/79 (99) 97 01/20/18 05:08 98.4 97 16 113/85 (94) 98 01/20/18 03:45 104 01/19/18 23:45 98.8 107 16 119/68 (85) 98 01/19/18 23:43 99 01/19/18 22:20 99 21 01/19/18 21:09 98.4 84 16 125/87 (100) 97 01/19/18 19:55 Room Air 01/19/18 19:47 114 01/19/18 19:17 128 01/19/18 19:17 97 Room Air 01/19/18 16:01 99.1 138 17 114/73 (87) 97 01/19/18 13:17 97 Room Air 01/19/18 13:07 110 01/19/18 12:02 98.0 134 18 100/69 (79) 97 I/O 01/19/18 01/19/18 01/19/18 01/20/18 01/20/18 01/20/18 07:00 15:00 23:00 07:00 15:00 23:00 Intake Total 720 ml 660 ml Balance 720 ml 660 ml Intake Oral 720 ml 660 ml # Voids 3 2 # Bowel Movements 2 0 Laboratory GENERAL: SKIN: Warm and dry. HEAD: Normocephalic. EYES: No scleral icterus. No injection or drainage. NECK: Supple, trachea midline. No JVD or lymphadenopathy. CARDIOVASCULAR: Regular rate and rhythm without murmurs, gallops, or rubs. RESPIRATORY: Breath sounds equal bilaterally. No accessory muscle use. GASTROINTESTINAL: Abdomen soft, non-tender, nondistended. MUSCULOSKELETAL: No cyanosis, or edema. BACK: Nontender without obvious deformity. No CVA tenderness. Laboratory Tests Test 01/20/18 10:15 Assessment and Plan Assessment and Plan 1.) Afib - rate controlled , continue cardizem 60 mg tid, not ac candidate due to anemia, h/o purposely cutting himself, multiple psychiatric disorders Osito Dobbs MD Jan 20, 2018 10:46
[2018-01-20] MEDS: FERROUS SULFATE 325 MG (65 MG ELEMENTAL IRON) TAB PO SCH (12:54)
--- NOTE | 2018-01-20 14:50 | PD.PSY.CON ---
Provisional Diagnosis Admission Date Jan 18, 2018 at 13:56 [place] I. Schizoaffective disorder, bipolar disorder, borderline personality disorder, alcohol use disorder [place] II. Borderline personality disorder [place] III. COPD, lung cancer, A. fib, CHF, seizures, HTN History of Present Illness Service Psychiatry Consult Requested By Medicine Reason for Consult Multiple suicidal attempts, psychotropic management Primary Care Physician No Primary Care Physician HPI The patient is 47-year-old man, homeless, single, unemployed, supported by [facility], with psychiatric history of schizoaffective disorder, bipolar type, alcohol use disorder, borderline personality disorder, multiple psychiatric hospitalizations, multiple suicidal attempts, extensive history of self cutting behavior without SI, poor impulse control, poor coping skills, well known by the service due to his multiple ER visits, he was just seen and discharged 2 days ago in the od, he has an established outpatient care in [facility] , he is on Thorazine 100 mg twice daily, Remeron 30 mg, lithium 200 mg twice daily, with PMH of A fib, HTN, COPD, lung cancer, presenting to the ED with chest pain. Developed CP after walking [place] bridge. [place] his heart racing, felt anxious, shaking. Pain on left side of chest, radiated to back. Has chronic L shoulder pain. Was a 7 out of 10 at that time. He went to a [facility] to check his vitals and was told his BP was 190's/120's with HR in 140's. Ambulance was called at that time. He was given an Aspirin that significantly improved his symptoms. Recently moved here from [place] so he doesn't have a PCP or [facility] Work[facility]. Was seen in ED here 2 days ago with similar symptoms and was treated for Afib with RVR. Has had hypotension with Metoprolol in the past. States he takes his medicine as prescribed. Denies any substance use over last 3 weeks. Had one beer yesterday. The patient was consulted to us for medication management. On psychiatric evaluation patient is calm, cooperative, pleasant. Patient reports that he has been stable of his psychiatric conditions in the last month. He says that he has not used any drugs or alcohol for at least one month. He has been compliant with his psychotropics, with good response, no significant side effects. At this moment the patient reports good mood, denies depression, denies hopelessness, denies helplessness, denies worthlessness, he denies suicidal and homicidal ideation. He does report some anxiety and difficulty sleeping at night since he is not in Thorazine. But he denies visual and auditory hallucinations. No paranoia, no delusions, no loosening of associations, no disorganized behavior or speech present. Patient is fully oriented 3. Review of Systems Constitutional: DENIES: Diaphoretic episodes, Fatigue, Fever, Weight gain, Weight loss, Chills, Dizziness, Change in appetite, Night Sweats Endocrine: DENIES: Heat/cold intolerance, Polydipsia, Polyuria, Polyphagia Eyes: DENIES: Blurred vision, Diplopia, Eye inflammation, Eye pain, Vision loss , Photosensitivity, Double Vision Ears, nose, mouth, throat: DENIES: Tinnitus, Hearing loss, Vertigo, Nasal discharge, Oral lesions, Throat pain, Hoarseness, Ear Pain, Running Nose, Epistaxis, Sinus Pain, Toothache, Odynophagia Respiratory: DENIES: Apneas, Cough, Snoring, Wheezing, Hemoptysis, Sputum production, Shortness of breath Cardiovascular: DENIES: Chest pain, Palpitations, Syncope, Dyspnea on Exertion , PND, Lower Extremity Edema, Orthopnea, Claudication Gastrointestinal: DENIES: Abdominal pain, Black stools, Bloody stools, Constipation, Diarrhea, Nausea, Vomiting, Difficulty Swallowing, Anorexia Genitourinary: DENIES: Sexual dysfunction, Urinary frequency, Urinary incontinence, Urgency, Hematuria, Dysuria, Nocturia, Penile Discharge, Testicular Pain, Testicular Swelling Musculoskeletal: DENIES: Joint pain, Muscle aches, Stiffness, Joint Swelling, Back pain, Neck pain Integumentary: DENIES: Abnormal pigmentation, Nail changes, Pruritus, Rash Hematologic/lymphatic: DENIES: Bruising, Lymphadenopathy Immunologic/allergic: DENIES: Eczema, Urticaria Psychiatric: COMPLAINS OF: Anxiety, DENIES: Confusion, Mood changes, Depression , Hallucinations, Agitation, Suicidal Ideation, Homicidal Ideation, Delusions Past Family Social History Coded Allergies: tetanus toxoid, adsorbed (Unverified Allergy, Severe, 01/18/18) Reported Medications [place] Carbonate ([place] Carbonate) 300 Mg Cap, 300 MG PO BID, CAP 0 Refills 01/16/18 Chlorpromazine (Chlorpromazine) 200 Mg Tab, 100 MG PO HS Y for NAUSEA OR VOMITING, TAB 0 Refills 01/16/18 Mirtazapine (Mirtazapine) 30 Mg Tab, 30 MG PO HS for Depression Control, #30 TAB 0 Refills 01/16/18 Diltiazem ER 12 HR (Diltiazem ER 12 HR) 60 Mg Caper, 60 MG PO BID, #60 CAP 0 Refills 01/16/18 Current Medications Medications (Trade) Dose Ordered Sig/Claire Route Start Time Stop Time Status Last Admin (NS Flush) 2 ml UNSCH PRN IV FLUSH 01/18/18 15:30 (NS Flush) 2 ml BID IV FLUSH 01/18/18 21:00 01/20/18 09:00 (Lovenox Inj) 40 mg Q24H SQ 01/18/18 17:00 01/19/18 18:45 (Duoneb Neb) 1 ampule Q6HR NEB INH 01/18/18 16:00 01/20/18 09:35 (Albuterol Neb) 2.5 mg Q2HR NEB PRN INH 01/18/18 15:30 (Habitrol 21 Mg Patch.24 Hr) 1 patch DAILY T-DERMAL 01/18/18 15:30 01/20/18 09:00 Miscellaneous Information 1 HS T-DERMAL 01/18/18 21:00 01/19/18 20:19 ([place] Carbonate) 300 mg BID PO 01/18/18 21:00 01/20/18 09:00 (Remeron) 30 mg HS PO 01/18/18 21:00 01/19/18 20:18 (Tylenol) 650 mg Q6H PRN PO 01/18/18 15:45 (Toradol Inj) 15 mg Q6H PRN IV PUSH 01/18/18 15:45 01/23/18 15:44 (Toradol Inj) 30 mg Q6H PRN IV PUSH 01/18/18 15:45 01/23/18 15:44 01/18/18 23:41 (Morphine Inj) 4 mg Q3H PRN IV PUSH 01/18/18 15:45 (Narcan Inj) 0.4 mg UNSCH PRN IV PUSH 01/18/18 15:45 (Vasotec Inj) 1.25 mg Q6H PRN IV PUSH 01/18/18 16:00 (Ferrous Sulfate) 325 mg DAILY PO 01/20/18 12:00 01/20/18 12:54 (Cardizem) 90 mg Q8HR PO 01/20/18 22:00 Family Psych History No family psychiatric history Social History Patient was born and raised in [place], he is homeless, single, unemployed, supported by [facility] Patient's Strengths (min. 2) Outpatient psychiatric care Physical Exam No tremors, no EPS, no withdrawal Vital Signs Vital Signs Date Time Temp Pulse Resp B/P (MAP) Pulse Ox O2 Delivery O2 Flow Rate FiO2 01/20/18 12:10 99.3 115 19 110/74 (86) 98 01/20/18 09:35 21 01/20/18 08:00 Room Air I/O 01/20/18 01/20/18 01/21/18 08:00 16:00 00:00 Intake Total 660 ml Balance 660 ml Lab Results Test 01/20/18 10:15 Urine Opiates Screen NEG Urine Barbiturates Screen NEG Urine Amphetamines Screen NEG Urine Benzodiazepines Screen NEG Urine Cocaine Screen NEG Urine Cannabinoids Screen NEG Mental Status Examination Appearance: Appropriate Consciousness: Alert Orientation: x4 Motor Activity: Normal gait Speech: Unremarkable Language: Adequate Fund of Knowledge: Adequate Attention and Concentration: Adequate Memory: Unremarkable Mood: Appropriate Affect: Appropriate Thought Process & Associations: Intact Thought Content: Appropriate Hallucination Type: None Delusion Type: None Suicidal Ideation: No Suicidal Plan: No Suicidal Intention: No Homicidal Ideation: No Homicidal Plan: No Homicidal Intention: No Insight: Adequate Judgment: Adequate Assessment & Plan Problem List: (1) Schizoaffective disorder, bipolar type ICD Codes: F25.0 - Schizoaffective disorder, bipolar type Status: Acute Assessment & Plan: Psychiatric evaluation today the patient does not present any neuropsychiatric symptoms that require immediate psychiatric intervention or admission. Patient does report anxiety and insomnia in the context of not taking his Thorazine 100 mg 3 times daily. Patient reports good mood, denies hopelessness, denies helplessness, denies suicidal and homicidal ideation, he denies visual and auditory hallucinations. The patient is oriented 3. Logical , coherent and relevant. He does not meet criteria for involuntary psychiatric hospitalization at this moment. I will restart his Thorazine 100 mg 3 times daily, Remeron 30 mg, lithium 300 mg twice daily. Will order lithium level. He will continue psychiatric care in outpatient basis in [facility]. Assessment & Plan Estimated LOS: Prince Duke MD Jan 20, 2018 14:50
[2018-01-20] MEDS: ENOXAPARIN SODIUM 40 MG/0.4 ML SYRINGE SQ SCH (17:10)
[2018-01-20] MEDS: DILTIAZEM HCL 90 MG TAB PO SCH (20:30)
[2018-01-20] MEDS: MIRTAZAPINE 15 MG TAB PO SCH (20:31)
[2018-01-20] MEDS: REMOVE OLD PATCH T-DERMAL SCH (20:33)
[2018-01-21] VITALS: BP 101/70; PULSE 109; PULSE 122; RESP 18; O2SAT 99
[2018-01-21 04:00] VITALS: PULSE 98
[2018-01-21] MEDS: RESP: ALBUTEROL 2.5 MG/IPRATROPIUM 0.5 MG NEB (SCH) INH ×2 (05:07→09:18)
[2018-01-21] MEDS: DILTIAZEM HCL 90 MG TAB PO SCH (05:46)
[2018-01-21 08:10] VITALS: BP 111/85; PULSE 96; RESP 18; TEMP 97.5; O2SAT 98
[2018-01-21] MEDS: LITHIUM CARBONATE 300 MG CAP PO SCH (08:37)
[2018-01-21] MEDS: FERROUS SULFATE 325 MG (65 MG ELEMENTAL IRON) TAB PO SCH (08:37)
[2018-01-21] MEDS: NICOTINE 21 MG/24 HR PATCH T-DERMAL SCH (08:37)
[2018-01-21] MEDS: SODIUM CHLORIDE 0.9% FLUSH 10 ML FLUSH IV FLUSH SCH (08:37)
[2018-01-21 09:20] VITALS: O2SAT 98
--- NOTE | 2018-01-21 09:29 | HHI.FPPN ---
Subjective Remarks Pt seen and examined this morning. No acute events overnight. Doing well this morning, denies any complaints. Wondering when he can go home. Denies any palpitations. Denies any fever/chills, chest pain, SOB, abdominal pain, leg pain. Objective Vitals Vital Signs Date Time Temp Pulse Resp B/P (MAP) Pulse Ox O2 Delivery O2 Flow Rate FiO2 01/21/18 09:20 98 01/21/18 04:00 Room Air 01/21/18 04:00 98 01/21/18 00:00 122 18 101/70 (80) 99 01/21/18 00:00 109 01/21/18 00:00 Room Air 01/20/18 22:24 98 21 01/20/18 20:00 Room Air 01/20/18 20:00 99.2 111 20 138/89 (105) 98 01/20/18 20:00 112 01/20/18 16:10 99.3 107 19 131/77 (95) 97 01/20/18 16:00 Room Air 01/20/18 16:00 117 01/20/18 12:10 99.3 115 19 110/74 (86) 98 01/20/18 12:00 Room Air 01/20/18 12:00 110 01/20/18 09:35 97 21 I/O 01/20/18 01/20/18 01/20/18 01/21/18 01/21/18 01/21/18 07:00 15:00 23:00 07:00 15:00 23:00 Intake Total 660 ml 420 ml 480 ml Balance 660 ml 420 ml 480 ml Intake Oral 660 ml 420 ml 480 ml # Voids 2 6 2 # Bowel Movements 0 2 Result Diagram: 01/19/18 0547 01/19/18 0547 Objective Remarks GENERAL: This is a well-nourished, slightly disheveled white male, no acute distress. SKIN: Cool and dry. CARDIOVASCULAR: Irregularly irregular rhythm, rate in the 100's without murmurs , gallops, or rubs. RESPIRATORY: Breath sounds equal bilaterally. Diffuse mild wheezing throughout GASTROINTESTINAL: Abdomen soft, non-tender, nondistended. No guarding. MUSCULOSKELETAL: Extremities without clubbing, cyanosis. Improving edema NEUROLOGICAL: Awake and alert. Normal speech. A/P Assessment and Plan 47 yo M with PMH of Afib, COPD, CAD, polysubstance abuse presenting to ED with chest pain and A. fib. Cardiology consulted. Discharge Planning Pending rate control and cardiology recommendations. Possibly today Problem List: (1) Atrial fibrillation with RVR ICD Codes: I48.91 - Unspecified atrial fibrillation Status: Acute Plan: Increased Cardizem to 90 mg every 8 hours Not an anticoagulation candidate per cardiology given psych history Cardiology consulted-appreciate recs Telemetry Troponin within normal limits Echo performed during last hospitalization (november 2017) that showed LVH, EF of 25-30%. Will not repeat at this time Lovenox for anticoagulation while in hospital Previous medication: At home, takes Cardizem 60mg po BID Trial of Cardizem 30 mg 4 times daily showed continued elevated heart rate (2) COPD (chronic obstructive pulmonary disease) ICD Codes: J44.9 - Chronic obstructive pulmonary disease, unspecified Status: Chronic Plan: History of COPD, heavy smoker Wheezing on exam CXR negative on admission Scheduling Duonebs Albuterol nebs PRN COPD education consulted Band Tumbler extensively on smoking cessation (3) Anemia ICD Codes: D64.9 - Anemia, unspecified Status: Chronic Plan: Hemoglobin of 9.2 on admission, Microcytic. Stable. Denies bloody stools, hematemesis Known history of anemia from prior ER visits, likely anemia of chronic disease with iron deficiency component Iron studies demonstrate low iron level Continue ferrous sulfate (4) CAD (coronary artery disease) ICD Codes: I25.10 - Atherosclerotic heart disease of [place] coronary artery without angina pectoris Plan: Known history of CAD, denies prior [place] Lipid panel reviewed (5) Schizoaffective disorder, bipolar type ICD Codes: F25.0 - Schizoaffective disorder, bipolar type Status: Acute Plan: Known history of Bipolar disorder, has been hospitalized following a suicide attempt in the past Continue home [place], Remeron Psych consulted for med evaluation and follow-up -Thorazine 100mg TID -Remeron 30mg -[place] 300mg BID (6) Substance abuse ICD Codes: F19.10 - Other psychoactive substance abuse, uncomplicated Status: Acute Plan: Known history of polysubstance abuse Denies using any illicit drugs in the past 2 weeks UDS, ethanol level within normal limits (7) Homeless ICD Codes: Z59.0 - Homelessness Status: Acute Plan: Case management assisting with discharge plans. (8) FEN Plan: No IVF at this time Will replete electrolytes as needed Regular diet Lovenox for DVT prophylaxis Problem Qualifiers (1) Anemia: Qualified Codes: D64.9 - Anemia, unspecified Arash Venegas MD R2 Jan 21, 2018 09:28
--- NOTE | 2018-01-21 09:38 | HHI.DCPOC ---
Discharge Care Plan Diagnosis: (1) Chronic atrial fibrillation with RVR (2) CAD (coronary artery disease) (3) Anemia (4) Schizoaffective disorder, bipolar type (5) COPD (chronic obstructive pulmonary disease) (6) Substance abuse Goals to Promote Your Health * To prevent worsening of your condition and complications * To maintain your health at the optimal level Directions to Meet Your Goals Take your medications as prescribed Follow your dietary instruction Follow activity as directed Keep your appointments as scheduled Take your immunizations and boosters as scheduled If your symptoms worsen call your PCP, if no PCP go to Urgent Care Center or Emergency Room Smoking is Dangerous to Your Health. Avoid second hand smoke Call the 24-hour hour crisis hotline for domestic abuse at Arash Venegas MD R2 Jan 21, 2018 09:38
[2018-01-21] MEDS ORDERED: DILT90TA PO (09:42)
[2018-01-21] MEDS ORDERED: FERR325T20 PO (09:42)
[2018-01-21] MEDS ORDERED: CHLO200T5 PO (09:42)
--- NOTE | 2018-01-21 09:46 | HHI.DS ---
Discharge Summary Admission Date Jan 18, 2018 at 13:56 Discharge Date: Jan 21, 2018 Admitting Diagnosis Chest pain (1) Atrial fibrillation with RVR Diagnosis: Principal Plan: Increased Cardizem to 90 mg every 8 hours Not an anticoagulation candidate per cardiology given psych history Cardiology consulted-appreciate recs Telemetry Troponin within normal limits Echo performed during last hospitalization (november 2017) that showed LVH, EF of 25-30%. Will not repeat at this time Lovenox for anticoagulation while in hospital Previous medication: At home, takes Cardizem 60mg po BID Trial of Cardizem 30 mg 4 times daily showed continued elevated heart rate ICD Codes: I48.91 - Unspecified atrial fibrillation Status: Acute (2) COPD (chronic obstructive pulmonary disease) Diagnosis: Secondary Plan: History of COPD, heavy smoker Wheezing on exam CXR negative on admission Scheduling Duonebs Albuterol nebs PRN COPD education consulted [employer] extensively on smoking cessation ICD Codes: J44.9 - Chronic obstructive pulmonary disease, unspecified Status: Chronic (3) Anemia Diagnosis: Secondary Plan: Hemoglobin of 9.2 on admission, Microcytic. Stable. Denies bloody stools, hematemesis Known history of anemia from prior ER visits, likely anemia of chronic disease with iron deficiency component Iron studies demonstrate low iron level Continue ferrous sulfate ICD Codes: D64.9 - Anemia, unspecified Status: Chronic (4) CAD (coronary artery disease) Diagnosis: Secondary Plan: Known history of CAD, denies prior [place] Lipid panel reviewed ICD Codes: I25.10 - Atherosclerotic heart disease of [place] coronary artery without angina pectoris (5) Schizoaffective disorder, bipolar type Diagnosis: Secondary Plan: Known history of Bipolar disorder, has been hospitalized following a suicide attempt in the past Continue home [place], [place] Psych consulted for med evaluation and follow-up -Thorazine 100mg TID -Remeron 30mg -[place] 300mg BID ICD Codes: F25.0 - Schizoaffective disorder, bipolar type Status: Acute (6) Substance abuse Diagnosis: Secondary Plan: Known history of polysubstance abuse Denies using any illicit drugs in the past 2 weeks UDS, ethanol level within normal limits ICD Codes: F19.10 - Other psychoactive substance abuse, uncomplicated Status: Acute (7) Homeless Diagnosis: Secondary Plan: Case management assisting with discharge plans. ICD Codes: Z59.0 - Homelessness Status: Acute (8) FEN Diagnosis: Secondary Plan: No IVF at this time Will replete electrolytes as needed Regular diet Lovenox for DVT prophylaxis Consultants Cardiology, Psychiatry Brief History CBC/BMP: 01/19/18 0547 01/19/18 0547 Significant Findings Laboratory Tests Test 01/18/18 12:52 01/18/18 13:59 01/18/18 21:22 01/19/18 05:47 Hemoglobin 9.2 GM/DL (13.0-17.0) 9.4 GM/DL (13.0-17.0) Hematocrit 30.8 % (39.0-51.0) 31.4 % (39.0-51.0) Mean Corpuscular Volume 66.7 FL (80.0-100.0) 66.3 FL (80.0-100.0) Mean Corpuscular Hemoglobin 20.0 PG (27.0-34.0) 19.9 PG (27.0-34.0) Mean Corpuscular Hemoglobin Concent 30.0 % (32.0-36.0) 30.1 % (32.0-36.0) Red Cell Distribution Width 21.8 % (11.6-17.2) 21.4 % (11.6-17.2) Monocytes (%) (Auto) 13.0 % (0.0-8.0) Monocytes # (Auto) 1.1 TH/MM3 (0-0.9) Total Protein 6.1 GM/DL (6.4-8.2) Albumin 3.3 GM/DL (3.4-5.0) Calcium Level 8.1 MG/DL (8.5-10.1) 8.4 MG/DL (8.5-10.1) Aspartate Amino Transf (AST/SGOT) 39 U/L (15-37) Chloride Level 112 MEQ/L (98-107) 112 MEQ/L (98-107) Estimat Glomerular Filtration Rate 84 ML/MIN (>89) 80 ML/MIN (>89) Iron Level 23 MCG/DL (65-175) Percent Iron Saturation 5.5 % (20-50) Troponin I LESS THAN 0.02 NG/ML LESS THAN 0.02 NG/ML LESS THAN 0.02 NG/ML Cholesterol Level 98 MG/DL (120-200) HDL Cholesterol 38.8 MG/DL (40.0-60.0) Activated Partial Thromboplast Time 21.9 SEC (24.3-30.1) Test 01/20/18 10:15 01/20/18 15:32 PE at Discharge GENERAL: This is a well-nourished, slightly disheveled white male, no acute distress. SKIN: Cool and dry. CARDIOVASCULAR: Irregularly irregular rhythm, rate in the 100's without murmurs , gallops, or rubs. RESPIRATORY: Breath sounds equal bilaterally. Diffuse mild wheezing throughout GASTROINTESTINAL: Abdomen soft, non-tender, nondistended. No guarding. MUSCULOSKELETAL: Extremities without clubbing, cyanosis. Improving edema NEUROLOGICAL: Awake and alert. Normal speech. Hospital Course 47-year-old male with history of atrial fibrillation, psychiatric disorder, cardiac disease presents with palpitations and shortness of breath. Found to have atrial fibrillation with elevation up to 120s and heart rate. Cardiology was consulted. His Cardizem dose was increased. ACS rule out was negative. His Cardizem dose was slowly titrated up, rate remained controlled. Per cardiology, not a candidate for him to correlation to his psych history and suicide attempts in the past. Psychiatry was consulted to review his medications. Patient was continued on those. Patient discharged in stable condition with increase of his Cardizem dose and follow-up with cardiology and psychiatry outpatient. Pt Condition on Discharge: Stable Discharge Disposition: Discharge Home Discharge Instructions DIET: Follow Instructions for: Heart Healthy Diet Activities you can perform: Regular-No Restrictions Follow up Referrals: Cardiology - 1 Week with Osito Dobbs MD PCP Follow-up - 1 Week Psychiatry Adult - 1 Week New Medications: Chlorpromazine (Chlorpromazine) 200 Mg Tab 100 MG PO Q8HR, #30 TAB 0 Refills Diltiazem (Diltiazem) 90 Mg Tab 90 MG PO Q8HR, #30 TAB Ferrous Sulfate (Ferosul) 325 Mg (65 Mg Iron) Tablet 325 MG PO DAILY, #30 TAB Continued Medications: [place] Carbonate ([place] Carbonate) 300 Mg Cap 300 MG PO BID, CAP 0 Refills Mirtazapine (Mirtazapine) 30 Mg Tab 30 MG PO HS for Depression Control, #30 TAB 0 Refills Discontinued Medications: Chlorpromazine (Chlorpromazine) 200 Mg Tab 100 MG PO HS PRN for NAUSEA OR VOMITING, TAB 0 Refills Diltiazem ER 12 HR (Diltiazem ER 12 HR) 60 Mg Caper 60 MG PO BID, #60 CAP 0 Refills Arash Venegas MD R2 Jan 21, 2018 09:46
== END 2018-01-21 11:16 | disposition home or self-care (01) ==
LOC: NEPE 12:11 → NEDA 13:56 → N04A 16:34
PROVIDERS: ADMIT Family Medicine; ATTEND Family Medicine
DX: I48.2 Chronic atrial fibrillation (principal); R07.89 Other chest pain; R00.2 Palpitations; D64.9 Anemia, unspecified; J44.9 Chronic obstructive pulmonary disease, unspecified; I25.10 Atherosclerotic heart disease of native coronary artery without angina pectoris; F25.0 Schizoaffective disorder, bipolar type; F19.10 Other psychoactive substance abuse, uncomplicated; I11.0 Hypertensive heart disease with heart failure; I50.9 Heart failure, unspecified; M25.512 Pain in left shoulder; G89.29 Other chronic pain; F41.9 Anxiety disorder, unspecified; F31.9 Bipolar disorder, unspecified; R74.8 Abnormal levels of other serum enzymes; F60.3 Borderline personality disorder; G47.00 Insomnia, unspecified; F17.210 Nicotine dependence, cigarettes, uncomplicated; Z59.0 Homelessness; Z79.899 Other long term (current) drug therapy; Z85.118 Personal history of other malignant neoplasm of bronchus and lung; Z86.73 Personal history of transient ischemic attack (TIA), and cerebral infarction without residual deficits
CPT/HCPCS: 71046; 80048; 80053; 80061; 80178; 80307; 82550; 82552; 83540; 83550; 83735; 84443; 84484; 85025; 85027; 85610; 85730; 93005; 94640; 94664; 96372; 96374; 96376; 99285; G0378; J1160; J1650; J1885

== ENCOUNTER 2018-02-09 23:19 | Inpatient (IN) | payer OTHER ==
[~2018-02-09] VITALS: Ht 188 cm; Wt 108.0 kg
[~2018-02-09 23:19] MED LIST changes: -DILT60CA PO; +DILT90TA PO; +FERR325T20 PO
[2018-02-09 23:28] VITALS: BP 107/73; PULSE 155; RESP 18; TEMP 98.7; O2SAT 97
[2018-02-10] VITALS (21 sets, daily range): BP systolic 104–127; BP diastolic 56–97; PULSE 92–148; RESP 16–25; TEMP 97.8–99.3; O2SAT 93–99
[2018-02-10] MEDS ORDERED: LORazepam 2 MG/ML VIAL IM ONE (01:30)
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
[2018-02-10] MEDS ORDERED: SODIUM CHLORIDE 0.9% FLUSH 10 ML FLUSH IVF PRN (03:45)
[2018-02-10] MEDS ORDERED: METOPROLOL TARTRATE 5 MG/5 ML VIAL IV PUSH PRN (04:00)
[2018-02-10] MEDS ORDERED: SODIUM CHLOR 0.9% 1000 ML INJ 1,000 ML IV ONE (04:00)
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
[2018-02-10] MEDS ORDERED: DILTIAZEM HCL 90 MG TAB PO ONE (04:30)
[2018-02-10 04:38] LABS: AUTOMATED NEUTROPHIL # 4.4 TH/MM3 (1.8-7.7); BASOPHIL # 0.1 TH/MM3 (0-0.2); BASOPHIL % 0.8 % (0.0-2.0); EOSINOPHIL % 0.5 % (0.0-4.0); HEMATOCRIT 37.1 % (39.0-51.0); HEMOGLOBIN 11.4 GM/DL (13.0-17.0); LYMPH % 32.3 % (9.0-44.0); LYMPHOCYTE # 2.5 TH/MM3 (1.0-4.8); MEAN CELL VOLUME 69.6 FL (80.0-100.0); MEAN CORPUSCULAR HEMOGLOBIN 21.3 PG (27.0-34.0); MEAN CORPUSCULAR HGB CONC 30.6 % (32.0-36.0); MEAN PLATELET VOLUME 8.6 FL (7.0-11.0); MONO % 10.2 % (0.0-8.0); MONOCYTE # 0.8 TH/MM3 (0-0.9); NEUT % 56.2 % (16.0-70.0); PLATELET COUNT 344 TH/MM3 (150-450); RED BLOOD COUNT 5.34 MIL/MM3 (4.50-5.90); RED CELL DISTRIBUTION WIDTH 25.3 % (11.6-17.2); WHITE BLOOD COUNT 7.9 TH/MM3 (4.0-11.0)
[2018-02-10 04:55] LABS: INTERNATIONAL NORMALIZED RATIO 1.1 RATIO; PROTHROMBIN TIME - PATIENT 10.7 SEC (9.8-11.6)
--- NOTE | 2018-02-10 05:15 | RADRPT ---
EXAM DATE/TIME: 02/10/2018 04:35 [facility] COMPARISON: CHEST SINGLE AP, December 05, 2017, 22:35. INDICATIONS : Palpitations. MEDICAL HISTORY : Cerebrovascular disease. Seizures. Cardiovascular disease SURGICAL HISTORY : None. ENCOUNTER: Initial ACUITY: 1 day PAIN SCORE: 0/10 LOCATION: Bilateral chest FINDINGS: A single view of the chest demonstrates the lungs to be symmetrically aerated without evidence of mas s, infiltrate or effusion. The cardiomediastinal contours are unremarkable. Osseous structures are intact. CONCLUSION: No acute disease. Min Fisher Jr., MD on February 10, 2018 at 5:13 Board Certified Radiologist. This report was verified electronically.
[2018-02-10 05:20] LABS: ALBUMIN 3.7 GM/DL (3.4-5.0); ALT (GPT) 18 U/L (12-78); AST (GOT) 23 U/L (15-37); BICARBONATE 22.6 MEQ/L (21.0-32.0); BLOOD UREA NITROGEN 6 MG/DL (7-18); CALCIUM 8.5 MG/DL (8.5-10.1); CHLORIDE 112 MEQ/L (98-107); CREATININE 0.98 MG/DL (0.60-1.30); GLOMERULAR FILTRATION RATE 81 ML/MIN (>89); GLUCOSE,RANDOM 80 MG/DL (74-106); SODIUM (NA) 142 MEQ/L (136-145)
[2018-02-10 05:29] LABS: ACETAMINOPHEN LESS THAN 2.0 MCG/ML (10.0-30.0); ALKALINE PHOSPHATASE 91 U/L (45-117); TOTAL BILIRUBIN ADULT 0.4 MG/DL (0.2-1.0); TOTAL PROTEIN 6.4 GM/DL (6.4-8.2); TROPONIN I LESS THAN 0.02 NG/ML (0.02-0.05)
[2018-02-10 05:44] LABS: ACANTHOCYTES OCC (NORMAL); KERATOCYTES OCC (NORMAL); OVALOCYTES 2+ (NORMAL)
[2018-02-10] MEDS ORDERED: AMIODARONE INJ 150 MG in DEXTROSE 5% IN WATER 100ML INJ 97 ML IV ONE ×2 (07:06)
[2018-02-10] MEDS ORDERED: AMIODARONE INJ 450 MG in SODIUM CHLOR 0.9% (EXCEL) INJ 250 ML IV SCH (08:07)
[2018-02-10] MEDS ORDERED: AMIODARONE INJ 450 MG in DEXTROSE 5% IN WATE(EXCEL) INJ 241 ML IV SCH ×2 (08:07)
--- NOTE | 2018-02-10 09:14 | PD ---
Physical Exam Date Seen by Provider: February 10, 2018 Time Seen by Provider: 07:00 Narrative Patient seen and evaluated initially by Dr. Doshi, please see Dr. Doshi's note for further details. Patient has been transferred from psychiatry for A. fib with RVR and the rate of 150 bpm. Had been given Cardizem p.o. without significant improvement. Was given amiodarone and has been put on a drip. At this point, lab has been done and plan would be to admit the patient for rate control of A. fib and for psychiatric evaluation, is a Alfaro act. Laboratory Tests Test 02/10/18 04:20 Hemoglobin 11.4 GM/DL (13.0-17.0) Hematocrit 37.1 % (39.0-51.0) Mean Corpuscular Volume 69.6 FL (80.0-100.0) Mean Corpuscular Hemoglobin 21.3 PG (27.0-34.0) Mean Corpuscular Hemoglobin Concent 30.6 % (32.0-36.0) Red Cell Distribution Width 25.3 % (11.6-17.2) Monocytes (%) (Auto) 10.2 % (0.0-8.0) Ovalocytes 2+ (NORMAL) Blood Urea Nitrogen 6 MG/DL (7-18) Chloride Level 112 MEQ/L (98-107) Estimat Glomerular Filtration Rate 81 ML/MIN (>89) Troponin I LESS THAN 0.02 NG/ML B-Type Natriuretic Peptide 173 PG/ML (0-100) Acetaminophen Level LESS THAN 2.0 MCG/ML [place] Level 0.1 MEQ/L (0.5-1.5) Last 24 hours Impressions Chest X-Ray 02/10/18 0343 Signed Impressions: Service Date/Time: Saturday, February 10, 2018 04:35 - CONCLUSION: No acute disease. Min Fisher Jr., MD Head CT 02/10/18 0000 Signed Impressions: Service Date/Time: Saturday, February 10, 2018 02:14 - CONCLUSION: Normal examination. Min Fisher Jr., MD Data Data Last Documented VS Vital Signs Date Time Temp Pulse Resp B/P (MAP) Pulse Ox O2 Delivery O2 Flow Rate FiO2 02/10/18 07:33 122 122/83 02/10/18 07:20 20 02/10/18 07:20 99 Room Air 02/10/18 07:20 97.8 Orders Orders Complete Blood Count With Diff (02/10/18 00:10) Urinalysis - C+S If Indicated (02/10/18 00:10) Psych Screen (02/10/18 00:10) [place] (Li) (02/10/18 00:10) Drug Screen, Random Urine (02/10/18 00:10) Salicylates (Aspirin) (02/10/18 00:10) Ct Brain W/O Iv Contrast(Rout) (02/10/18 ) Lorazepam Inj (Ativan Inj) (02/10/18 01:30) Electrocardiogram (02/10/18 ) B-Type Natriuretic Peptide (02/10/18 03:43) Act Partial Throm Time (Ptt) (02/10/18 03:43) Prothrombin Time / Inr (Pt) (02/10/18 03:43) Magnesium (Mg) (02/10/18 03:43) Ckmb (Isoenzyme) Profile (02/10/18 03:43) Troponin I (02/10/18 03:43) Iv Access Insert/Monitor (02/10/18 03:43) Ecg Monitoring (02/10/18 03:43) Oximetry (02/10/18 03:43) Oxygen Administration (02/10/18 03:43) Chest, Single Ap (02/10/18 03:43) Sodium Chloride 0.9% Flush (Ns Flush) (02/10/18 03:45) Metoprolol Tartrate Inj (Lopressor Inj) (02/10/18 04:00) Sodium Chlor 0.9% 1000 Ml Inj (Ns 1000 M (02/10/18 04:00) Diltiazem (Cardizem) (02/10/18 04:30) Tylenol (Acetaminophen) (02/10/18 04:20) Alcohol (Ethanol) (02/10/18 04:20) Comprehensive Metabolic Panel (02/10/18 04:20) Thyroid Stimulating Hormone (02/10/18 04:20) CKMB (02/10/18 04:20) CKMB% (02/10/18 04:20) Dextrose 5% In [place]... W/Amiodarone Inj (02/10/18 07:06) Admit Order (Ed Use Only) (02/10/18 07:52) Dextrose 5% In [place]... W/Amiodarone Inj (02/10/18 08:07) Labs Laboratory Tests Test 02/10/18 04:20 White Blood Count 7.9 TH/MM3 Red Blood Count 5.34 MIL/MM3 Hemoglobin 11.4 GM/DL Hematocrit 37.1 % Mean Corpuscular Volume 69.6 FL Mean Corpuscular Hemoglobin 21.3 PG Mean Corpuscular Hemoglobin Concent 30.6 % Red Cell Distribution Width 25.3 % Platelet Count 344 TH/MM3 Mean Platelet Volume 8.6 FL Neutrophils (%) (Auto) 56.2 % Lymphocytes (%) (Auto) 32.3 % Monocytes (%) (Auto) 10.2 % Eosinophils (%) (Auto) 0.5 % Basophils (%) (Auto) 0.8 % Neutrophils # (Auto) 4.4 TH/MM3 Lymphocytes # (Auto) 2.5 TH/MM3 Monocytes # (Auto) 0.8 TH/MM3 Eosinophils # (Auto) 0.0 TH/MM3 Basophils # (Auto) 0.1 TH/MM3 CBC Comment AUTO DIFF Differential Comment AUTO DIFF CONFIRMED Platelet Estimate NORMAL Platelet Morphology Comment NORMAL Ovalocytes 2+ Acanthocytes OCC Keratocytes OCC Prothrombin Time 10.7 SEC Prothromb Time International Ratio 1.1 RATIO Activated Partial Thromboplast Time 26.9 SEC Blood Urea Nitrogen 6 MG/DL Creatinine 0.98 MG/DL Random Glucose 80 MG/DL Total Protein 6.4 GM/DL Albumin 3.7 GM/DL Calcium Level 8.5 MG/DL Magnesium Level 2.0 MG/DL Alkaline Phosphatase 91 U/L Aspartate Amino Transf (AST/SGOT) 23 U/L Alanine Aminotransferase (ALT/SGPT) 18 U/L Total Bilirubin 0.4 MG/DL Sodium Level 142 MEQ/L Potassium Level 4.3 MEQ/L Chloride Level 112 MEQ/L Carbon Dioxide Level 22.6 MEQ/L Anion Gap 7 MEQ/L Estimat Glomerular Filtration Rate 81 ML/MIN Total Creatine Kinase 161 U/L Creatine Kinase MB 3.1 NG/ML Troponin I LESS THAN 0.02 NG/ML B-Type Natriuretic Peptide 173 PG/ML Thyroid Stimulating Hormone 3rd Gen 2.790 uIU/ML Salicylates Level 3.0 MG/DL Acetaminophen Level LESS THAN 2.0 MCG/ML [place] Level 0.1 MEQ/L Ethyl Alcohol Level LESS THAN 3 MG/DL [facility] Medical Record Reviewed: Yes Supervised Visit with KENNETH: Yes Diagnosis Primary Impression: Atrial fibrillation with RVR Additional Impression: Medical clearance for psychiatric admission Admitting Information Admitting Physician Requests: Bernardino Garnica MD February 10, 2018 09:14
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
[2018-02-10] MEDS ORDERED: MAGNESIUM HYDROXIDE SUSP 30 ML CUP PO PRN (10:00)
[2018-02-10] MEDS ORDERED: BISACODYL 10 MG SUPP RECTAL PRN (10:00)
[2018-02-10] MEDS ORDERED: LACTULOSE SYRUP 20 GM/30 ML CUP PO PRN (10:00)
[2018-02-10] MEDS ORDERED: NALOXONE HCL 0.4 MG/ML AMP IV PUSH PRN (10:00)
[2018-02-10] MEDS ORDERED: SODIUM CHLORIDE 0.9% FLUSH 10 ML FLUSH IV FLUSH PRN (10:00)
[2018-02-10] MEDS ORDERED: ACETAMINOPHEN 325 MG TAB PO PRN (10:00)
[2018-02-10] MEDS ORDERED: SENNOSIDES 8.6 MG TAB PO PRN (10:00)
[2018-02-10] MEDS ORDERED: ONDANSETRON ODT 4 MG TAB PO PRN (10:15)
[2018-02-10] MEDS ORDERED: methylPREDNISolone SOD SUCC 125 MG/2 ML VIAL IV PUSH ONE (10:30)
[2018-02-10] MEDS ORDERED: PANTOPRAZOLE SODIUM 40 MG VIAL IV PUSH ONE (11:00)
[2018-02-10] MEDS ORDERED: ENOXAPARIN SODIUM 40 MG/0.4 ML SYRINGE SQ SCH (11:00)
[2018-02-10] MEDS: RESP: ALBUTEROL 2.5 MG/IPRATROPIUM 0.5 MG NEB (SCH) NEB ×2 (12:12→20:00)
[2018-02-10] MEDS ORDERED: HALOPERIDOL LACTATE 5 MG/ML AMP IM ONE (12:45)
[2018-02-10] MEDS: DILTIAZEM HCL 90 MG TAB PO SCH ×2 (13:04→21:22)
--- NOTE | 2018-02-10 13:41 | PD.CONS ---
HPI History of Present Illness This is a 47 year old yo M who is currently admitted to [place] under a Alfaro Act due to reports of intentions for self harm. Pt is currently admitted to a medical floor due to current a-fib with RVR, he is on a amiodarone drip and oral Cardizem and cardiology consult is pending. Our service has been consulted to evaluate pt for anemia. Pt is awake and alert during my exam but is irritated and minimally answers questions making history hard to obtain. Pt reports known iron deficiency anemia and was started on iron supplements here a month ago, states he has been compliant with taking them. Pt denies any GI symptoms at this time including nausea, vomiting, unintentional weight loss, abdominal pain, constipation, diarrhea, blood in his stool. Reports last colonoscopy was multiple years ago and the thinks the exam was normal. Denies ever having EGD in the past. Denies family history significant for colon cancer. Admits to daily ETOH, but wont say approx how much, just states "enough ". Smokes a pack and a half to two packs of cigarettes a day. Also admits to daily marijuana use. (Rody Parks) PFSH Past Medical History Anxiety, Depression, Bipolar Disorder, A. fib, COPD, CAD, Alcohol Abuse, Tobacco Abuse and Cocaine Abuse Past Surgical History Cholecystectomy (Rody Parks) Coded Allergies: tetanus toxoid, adsorbed (Unverified Allergy, Severe, 01/18/18) Family History Unable to obtain Social History ETOH daily- states "enough" Smoke a pack and a half to two packs of cigarettes a day Admits to marijuana use daily (Rody Parks) Review of Systems Gastrointestinal: DENIES: Abdominal pain, Black stools, Bloody stools, Constipation, Diarrhea, Nausea, Vomiting, Difficulty Swallowing, Odynophagia, Swelling of Abdomen, Heartburn, Hematemesis (Rody Parks) GI Exam Vitals I&O Vital Signs Date Time Temp Pulse Resp B/P (MAP) Pulse Ox O2 Delivery O2 Flow Rate FiO2 02/10/18 11:25 97.8 116 106/84 (91) 96 02/10/18 11:00 97.9 116 20 118/67 (84) 97 Room Air 02/10/18 10:00 98 20 104/61 (75) 93 Room Air 02/10/18 08:59 98.2 125 16 106/56 (73) 97 Room Air 02/10/18 08:25 97.8 128 20 122/79 (93) 99 Room Air 02/10/18 08:24 128 122/79 02/10/18 07:33 122 122/83 02/10/18 07:21 133 121/90 02/10/18 07:20 133 20 02/10/18 07:20 99 Room Air 02/10/18 07:20 20 99 Room Air 02/10/18 07:20 97.8 133 20 121/90 (100) 99 Room Air 02/10/18 03:50 20 02/10/18 03:50 Room Air 02/10/18 03:00 99.3 148 20 116/59 (78) 97 Room Air 02/09/18 23:28 98.7 155 18 107/73 (84) 97 I/O 02/09/18 02/09/18 02/09/18 02/10/18 02/10/18 02/10/18 07:00 15:00 23:00 07:00 15:00 23:00 Intake Total 1000 ml 400 ml Output Total 800 ml Balance 1000 ml -400 ml Intake Oral 300 ml IV Total 1000 ml 100 ml Output Urine Total 800 ml # Voids 1 # Bowel Movements 0 Imaging Last Impressions Chest X-Ray 02/10/18 0343 Signed Impressions: Service Date/Time: Saturday, February 10, 2018 04:35 - CONCLUSION: No acute disease. Min Fisher Jr., MD Head CT 02/10/18 0000 Signed Impressions: Service Date/Time: Saturday, February 10, 2018 02:14 - CONCLUSION: Normal examination. Min Fisher Jr., MD Laboratory Test 02/10/18 04:20 White Blood Count 7.9 TH/MM3 Red Blood Count 5.34 MIL/MM3 Hemoglobin 11.4 GM/DL Hematocrit 37.1 % Mean Corpuscular Volume 69.6 FL Mean Corpuscular Hemoglobin 21.3 PG Mean Corpuscular Hemoglobin Concent 30.6 % Red Cell Distribution Width 25.3 % Platelet Count 344 TH/MM3 Mean Platelet Volume 8.6 FL Neutrophils (%) (Auto) 56.2 % Lymphocytes (%) (Auto) 32.3 % Monocytes (%) (Auto) 10.2 % Eosinophils (%) (Auto) 0.5 % Basophils (%) (Auto) 0.8 % Neutrophils # (Auto) 4.4 TH/MM3 Lymphocytes # (Auto) 2.5 TH/MM3 Monocytes # (Auto) 0.8 TH/MM3 Eosinophils # (Auto) 0.0 TH/MM3 Basophils # (Auto) 0.1 TH/MM3 CBC Comment AUTO DIFF Differential Comment AUTO DIFF CONFIRMED Platelet Estimate NORMAL Platelet Morphology Comment NORMAL Ovalocytes 2+ Acanthocytes OCC Keratocytes OCC Prothrombin Time 10.7 SEC Prothromb Time International Ratio 1.1 RATIO Activated Partial Thromboplast Time 26.9 SEC Blood Urea Nitrogen 6 MG/DL Creatinine 0.98 MG/DL Random Glucose 80 MG/DL Total Protein 6.4 GM/DL Albumin 3.7 GM/DL Calcium Level 8.5 MG/DL Magnesium Level 2.0 MG/DL Alkaline Phosphatase 91 U/L Aspartate Amino Transf (AST/SGOT) 23 U/L Alanine Aminotransferase (ALT/SGPT) 18 U/L Total Bilirubin 0.4 MG/DL Sodium Level 142 MEQ/L Potassium Level 4.3 MEQ/L Chloride Level 112 MEQ/L Carbon Dioxide Level 22.6 MEQ/L Anion Gap 7 MEQ/L Estimat Glomerular Filtration Rate 81 ML/MIN Total Creatine Kinase 161 U/L Creatine Kinase MB 3.1 NG/ML Troponin I LESS THAN 0.02 NG/ML B-Type Natriuretic Peptide 173 PG/ML Thyroid Stimulating Hormone 3rd Gen 2.790 uIU/ML Salicylates Level 3.0 MG/DL Acetaminophen Level LESS THAN 2.0 MCG/ML [place] Level 0.1 MEQ/L Ethyl Alcohol Level LESS THAN 3 MG/DL Physical Examination HEENT: Normocephalic; atraumatic CHEST: Even/unlabored CARDIAC: Irregularly irregular, rate elevated ABDOMEN: Distended, soft, nontender, bowel sounds active SKIN: Normal; no rash; no jaundice. GREASE PRESS HELPER: Alert and oriented times three. (Rody Parks) Assessment and Plan Plan Assessment: - Anemia, microcytic, hypochromic. H/H 11.4/37.1- hgb previously 9.4 on 01/19 Pt with known history of SARAN, states started on iron supplements a month ago and reports compliance with taking them. Denies any GI symptoms Last colonoscopy was multiple years ago and he thinks the exam was normal. Denies previous EGD. Denies family history of colon cancer. ETOH-daily Smokes 1 1/2 to 2 PPD of cigarettes. Daily marijuana use. Denies NSAIDs. Not currently on blood thinners. - A-fib RVR- cardiology consult pending - Alfaro Act Pt refusing any further work up regarding anemia including EGD or colonoscopy. Plan: Pt refusing GI work up Discussed procedures including risks and indication, still refuses Monitor H/H Continue iron supplements Notify GI if any active bleeding or if pt changes his mind At this time not much to add, we will sign off, please reconsult as needed Pt has been seen and examined by myself and Dr. Crook and this note is written on her behalf (Rody Parks) Physician Comments seen, examined agree with above call us if he changes his mind (Susanna Crook MD) Rody Parks February 10, 2018 13:41 Susanna Crook MD February 10, 2018 17:40
--- NOTE | 2018-02-10 14:31 | EKG ---
Date Performed: 02/10/2018 Time Performed: 03:44:39 PTAGE: 47 years EKG: ATRIAL FIBRILLATION WITH RAPID VENTRICULAR RESPONSE NONSPECIFIC ST & T-WAVE ABNORMALITY ABN ORMAL RHYTHM ECG PREVIOUS TRACING 01/19/2018 03.41 Since the previous tracing, no significant change noted DOCTOR: Bridger Deng Interpretating Date/Time 02/10/2018 14:30:29
[2018-02-10 14:41] LABS: % SATURATION IRON PROFILE 4.1 % (20-50); IRON (FE) 20 MCG/DL (65-175); TOTAL IRON BINDING CAPACITY 493 MCG/DL (250-450)
[2018-02-10 14:44] LABS: FERRITIN 13 NG/ML (26-388)
[2018-02-10] MEDS ORDERED: FLUMAZENIL 0.5 MG/5 ML VIAL IV PUSH PRN (15:00)
[2018-02-10] MEDS ORDERED: LORazepam 1 MG TAB PO PRN (15:00)
[2018-02-10] MEDS ORDERED: HALOPERIDOL LACTATE 5 MG/ML AMP IM PRN ×2 (15:00→17:00)
[2018-02-10] MEDS ORDERED: LORazepam 2 MG TAB PO PRN (15:00)
[2018-02-10] MEDS ORDERED: LORazepam 2 MG/ML VIAL IV PUSH PRN ×3 (15:00)
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
[2018-02-10] MEDS ORDERED: DIGOXIN 0.5 MG/2 ML VIAL IVS STA (15:16)
[2018-02-10] MEDS: LORazepam 2 MG/ML VIAL IV PUSH PRN ×3 (15:56→23:57)
[2018-02-10] MEDS: methylPREDNISolone SOD SUCC 40 MG/1 ML VIAL IV PUSH SCH ×2 (15:57→23:56)
--- NOTE | 2018-02-10 16:49 | PD.PSY.CON ---
Provisional Diagnosis Admission Date February 10, 2018 at 07:55 [place] I. Adjustment disorder with disturbance of conduct, alcohol use disorder, schizoaffective disorder [place] II. Borderline personality disorder History of Present Illness Service Psychiatry Consult Requested By Medicine Reason for Consult The patient is under Alfaro act Primary Care Physician Unknown HPI The patient is a 47-year-old man, homeless, unemployed, single, on SSI , with an extensive psychiatric history of borderline personality disorder, schizoaffective disorder, alcohol use disorder, numerous psychiatric hospitalizations, suicide attempts, extensive self cutting behavior, poor coping skills, poor impulse control, medical history significant for atrial fibrillation, COPD who presents to [facility] under a Alfaro act. Alfaro act states that the patient was banging his head against a sign and said that he just wanted to . He said that he wanted to knock himself out did not feel any more pain. The patient also stated as per the Alfaro act that he would walk into traffic so he could be hit by a semitruck. The patient has being admitted in the hospital due to A. fib with RVR. He has been agitated, had to be medicated with Ativan 2 mg IM and Haldol 5 mg IM. He is a little bit sedated, but calm and cooperative. The patient reports that he feels better now. He reports okay mood, "sleepy now". The patient admits that he has been drinking alcohol, denies the use of other illegal drugs. He denies suicidal and homicidal ideation, he denies visual and auditory hallucinations at this moment. Unable to elaborate about the reason of his recent suicidal statement, but he does admit that he was intoxicated with alcohol. Review of Systems Constitutional: DENIES: Diaphoretic episodes, Fatigue, Fever, Weight gain, Weight loss, Chills, Dizziness, Change in appetite, Night Sweats Endocrine: DENIES: Heat/cold intolerance, Polydipsia, Polyuria, Polyphagia Eyes: DENIES: Blurred vision, Diplopia, Eye inflammation, Eye pain, Vision loss , Photosensitivity, Double Vision Ears, nose, mouth, throat: DENIES: Tinnitus, Hearing loss, Vertigo, Nasal discharge, Oral lesions, Throat pain, Hoarseness, Ear Pain, Running Nose, Epistaxis, Sinus Pain, Toothache, Odynophagia Respiratory: DENIES: Apneas, Cough, Snoring, Wheezing, Hemoptysis, Sputum production, Shortness of breath Cardiovascular: DENIES: Chest pain, Palpitations, Syncope, Dyspnea on Exertion , PND, Lower Extremity Edema, Orthopnea, Claudication Gastrointestinal: DENIES: Abdominal pain, Black stools, Bloody stools, Constipation, Diarrhea, Nausea, Vomiting, Difficulty Swallowing, Anorexia Genitourinary: DENIES: Sexual dysfunction, Urinary frequency, Urinary incontinence, Urgency, Hematuria, Dysuria, Nocturia, Penile Discharge, Testicular Pain, Testicular Swelling Musculoskeletal: DENIES: Joint pain, Muscle aches, Stiffness, Joint Swelling, Back pain, Neck pain Integumentary: DENIES: Abnormal pigmentation, Nail changes, Pruritus, Rash Hematologic/lymphatic: DENIES: Bruising, Lymphadenopathy Neurologic: DENIES: Abnormal gait, Headache, Localized weakness, Paresthesias, Seizures, Speech Problems, Tremor, Poor Balance Psychiatric: DENIES: Anxiety, Confusion, Mood changes, Depression, Hallucinations, Agitation, Suicidal Ideation, Homicidal Ideation, Delusions Past Family Social History Coded Allergies: tetanus toxoid, adsorbed (Unverified Allergy, Severe, 01/18/18) Active Scripts Chlorpromazine (Chlorpromazine) 200 Mg Tab, 100 MG PO Q8HR, #30 TAB 0 Refills Prov:Arash Venegas MD R2 01/21/18 Ferrous Sulfate (Ferosul) 325 Mg (65 Mg Iron) Tablet, 325 MG PO DAILY, #30 TAB Prov:Arash Venegas MD R2 01/21/18 Diltiazem (Diltiazem) 90 Mg Tab, 90 MG PO Q8HR, #30 TAB Prov:Arash Venegas MD R2 01/21/18 Reported Medications [place] Carbonate ([place] Carbonate) 300 Mg Cap, 300 MG PO BID, CAP 0 Refills 01/16/18 Mirtazapine (Mirtazapine) 30 Mg Tab, 30 MG PO HS for Depression Control, #30 TAB 0 Refills 01/16/18 Current Medications Medications (Trade) Dose Ordered Sig/Claire Route Start Time Stop Time Status Last Admin (NS Flush) 2 ml UNSCH PRN IV FLUSH 02/10/18 10:00 (NS Flush) 2 ml BID IV FLUSH 02/10/18 21:00 (Tylenol) 650 mg Q4H PRN PO 02/10/18 10:00 (Zofran Odt) 4 mg Q6H PRN PO 02/10/18 10:15 (Lovenox Inj) 40 mg Q24H SQ 02/10/18 11:00 02/10/18 10:37 (Narcan Inj) 0.4 mg UNSCH PRN IV PUSH 02/10/18 10:00 (Qian-Colace) 1 tab BID PO 02/10/18 21:00 (Milk Of Magnesia Liq) 30 ml Q12H PRN PO 02/10/18 10:00 (Senokot) 17.2 mg Q12H PRN PO 02/10/18 10:00 (Dulcolax Supp) 10 mg DAILY PRN RECTAL 02/10/18 10:00 (Lactulose Liq) 30 ml DAILY PRN PO 02/10/18 10:00 (SoluMEDROL INJ) 40 mg Q6HR IV PUSH 02/10/18 17:00 02/10/18 15:57 (Cardizem) 90 mg Q8HR PO 02/10/18 14:00 02/10/18 13:04 (Protonix) 40 mg DAILY PO 02/11/18 09:00 (Duoneb Neb) 1 ampule Q6HR WHILE AWAKE NEB NEB 02/10/18 14:00 (Romazicon Inj) 0.2 mg Q1M PRN IV PUSH 02/10/18 15:00 (Ativan) 1 mg Q4H PRN PO 02/10/18 15:00 (Ativan Inj) 1 mg Q4H PRN IV PUSH 02/10/18 15:00 02/10/18 15:56 (Ativan) 2 mg Q2H PRN PO 02/10/18 15:00 (Ativan Inj) 2 mg Q2H PRN IV PUSH 02/10/18 15:00 (Ativan Inj) 2 mg Q1H PRN IV PUSH 02/10/18 15:00 (Ativan Inj) 2 mg Q15M PRN IV PUSH 02/10/18 15:00 (Haldol Inj) 2 mg Q4H PRN IM 02/10/18 15:00 (Lanoxin Inj) 0.25 mg Q6H IVS 02/10/18 21:30 02/11/18 03:31 Family Psych History No family psychiatric history Social History Patient was born and raised in [place], he is homeless, unemployed, supported by [facility] Patient's Strengths (min. 2) Verbal communication Physical Exam Patient is quite sedated, psychomotor retarded, but no withdrawal, no EPS present Vital Signs Vital Signs Date Time Temp Pulse Resp B/P (MAP) Pulse Ox O2 Delivery O2 Flow Rate FiO2 02/10/18 15:43 98.2 102 20 125/97 (106) 94 02/10/18 11:00 Room Air I/O 02/10/18 02/10/18 02/11/18 08:00 16:00 00:00 Intake Total 1000 ml 400 ml Output Total 800 ml Balance 1000 ml -400 ml Lab Results Test 02/10/18 04:20 White Blood Count 7.9 TH/MM3 Red Blood Count 5.34 MIL/MM3 Hemoglobin 11.4 GM/DL Hematocrit 37.1 % Mean Corpuscular Volume 69.6 FL Mean Corpuscular Hemoglobin 21.3 PG Mean Corpuscular Hemoglobin Concent 30.6 % Red Cell Distribution Width 25.3 % Platelet Count 344 TH/MM3 Mean Platelet Volume 8.6 FL Neutrophils (%) (Auto) 56.2 % Lymphocytes (%) (Auto) 32.3 % Monocytes (%) (Auto) 10.2 % Eosinophils (%) (Auto) 0.5 % Basophils (%) (Auto) 0.8 % Neutrophils # (Auto) 4.4 TH/MM3 Lymphocytes # (Auto) 2.5 TH/MM3 Monocytes # (Auto) 0.8 TH/MM3 Eosinophils # (Auto) 0.0 TH/MM3 Basophils # (Auto) 0.1 TH/MM3 CBC Comment AUTO DIFF Differential Comment AUTO DIFF CONFIRMED Platelet Estimate NORMAL Platelet Morphology Comment NORMAL Ovalocytes 2+ Acanthocytes OCC Keratocytes OCC Prothrombin Time 10.7 SEC Prothromb Time International Ratio 1.1 RATIO Activated Partial Thromboplast Time 26.9 SEC Blood Urea Nitrogen 6 MG/DL Creatinine 0.98 MG/DL Random Glucose 80 MG/DL Total Protein 6.4 GM/DL Albumin 3.7 GM/DL Calcium Level 8.5 MG/DL Magnesium Level 2.0 MG/DL Alkaline Phosphatase 91 U/L Aspartate Amino Transf (AST/SGOT) 23 U/L Alanine Aminotransferase (ALT/SGPT) 18 U/L Total Bilirubin 0.4 MG/DL Sodium Level 142 MEQ/L Potassium Level 4.3 MEQ/L Chloride Level 112 MEQ/L Carbon Dioxide Level 22.6 MEQ/L Anion Gap 7 MEQ/L Estimat Glomerular Filtration Rate 81 ML/MIN Iron Level 20 MCG/DL Total Iron Binding Capacity 493 MCG/DL Percent Iron Saturation 4.1 % Ferritin 13 NG/ML Total Creatine Kinase 161 U/L Creatine Kinase MB 3.1 NG/ML Troponin I LESS THAN 0.02 NG/ML B-Type Natriuretic Peptide 173 PG/ML Thyroid Stimulating Hormone 3rd Gen 2.790 uIU/ML Salicylates Level 3.0 MG/DL Acetaminophen Level LESS THAN 2.0 MCG/ML [place] Level 0.1 MEQ/L Ethyl Alcohol Level LESS THAN 3 MG/DL Mental Status Examination Appearance: Appropriate Consciousness: Alert Orientation: x4 Motor Activity: Normal gait Speech: Unremarkable Language: Adequate Fund of Knowledge: Adequate Attention and Concentration: Adequate Memory: Unremarkable Mood: Appropriate Affect: Appropriate Thought Process & Associations: Intact Thought Content: Appropriate Hallucination Type: None Delusion Type: None Suicidal Ideation: No Suicidal Plan: No Suicidal Intention: No Homicidal Ideation: No Homicidal Plan: No Homicidal Intention: No Insight: Fair Judgment: Impulsive Assessment & Plan Problem List: (1) Borderline personality disorder ICD Codes: F60.3 - Borderline personality disorder Status: Acute (2) Alcohol abuse with alcohol-induced mood disorder ICD Codes: F10.14 - Alcohol abuse with alcohol-induced mood disorder Assessment & Plan: On psychiatric evaluation today the patient is a little bit sedated, with psychomotor retardation due to recent hospital injection. But, he is logical, coherent and relevant, oriented 3. Patient is able to admit that he was intoxicated with alcohol, upset, now feels much better. He denies suicidal and homicidal ideation, he denies visual and auditory hallucinations. The patient has an extensive history of psychiatric hospitalizations, suicidal attempts self cutting behavior, poor coping skills, poor impulse control. He has the diagnosis of schizoaffective disorder and borderline personality disorder. He also has an extensive history of alcohol use disorder, multiple ER visits due to alcohol related issues. Apparently he is suicidal statement was done under the influence of alcohol intoxication and in the context of frustration. At this moment the patient a in low risk of danger to self and he does not meet criteria for involuntary psychiatric admission. It is important to clarify that given his previous psychiatric history, persistent alcohol use, personality pathology the patient carries a chronic risk of aggressive behavior and suicidality. Continue CIWA to protect the patient from alcohol withdrawal. Miriaml 5 mg IM/IV every 8 hours as needed aggressive behavior and agitation. I will lift the Alfaro act. Assessment & Plan Estimated LOS: Prince Jacinto MD February 10, 2018 16:49
[2018-02-10] MEDS ORDERED: SODIUM CHLORIDE 0.9% FLUSH 10 ML FLUSH IV FLUSH SCH (21:00)
[2018-02-10] MEDS: DOCUSATE SODIUM 50 MG/SENNA 8.6 MG TAB PO SCH ×2 (21:00→21:17)
[2018-02-10] MEDS: DIGOXIN 0.5 MG/2 ML VIAL IVS SCH (21:20)
[2018-02-11] VITALS (7 sets, daily range): BP systolic 122–126; BP diastolic 79–80; PULSE 93–118; RESP 20; TEMP 98.2–98.4; O2SAT 98
[2018-02-11] MEDS: LORazepam 2 MG/ML VIAL IV PUSH PRN (03:42)
[2018-02-11] MEDS: DIGOXIN 0.5 MG/2 ML VIAL IVS SCH (03:42)
[2018-02-11] MEDS: DILTIAZEM HCL 90 MG TAB PO SCH (06:02)
[2018-02-11] MEDS: methylPREDNISolone SOD SUCC 40 MG/1 ML VIAL IV PUSH SCH (06:03)
[2018-02-11] MEDS ORDERED: PANTOPRAZOLE SOD 40 MG DELAYED RELEASE TAB PO SCH (09:00)
== END 2018-02-11 08:13 | disposition left against medical advice (07) | DRG 190 ==
LOC: NEPJ 23:19 → NEDA 02-10 07:55 → HCIS 02-10 11:58
PROVIDERS: ADMIT Hospitalist; ATTEND Hospitalist
DX: J44.1 Chronic obstructive pulmonary disease with (acute) exacerbation (principal); G92 Toxic encephalopathy; I48.2 Chronic atrial fibrillation; R45.851 Suicidal ideations; D50.9 Iron deficiency anemia, unspecified; I10 Essential (primary) hypertension; F10.14 Alcohol abuse with alcohol-induced mood disorder; F14.10 Cocaine abuse, uncomplicated; F25.9 Schizoaffective disorder, unspecified; F31.9 Bipolar disorder, unspecified; F10.129 Alcohol abuse with intoxication, unspecified; I25.10 Atherosclerotic heart disease of native coronary artery without angina pectoris; F17.210 Nicotine dependence, cigarettes, uncomplicated; F12.90 Cannabis use, unspecified, uncomplicated; I25.5 Ischemic cardiomyopathy; F60.3 Borderline personality disorder; Z59.0 Homelessness; Z86.73 Personal history of transient ischemic attack (TIA), and cerebral infarction without residual deficits; Z91.5 Personal history of self-harm; Z91.19 Patient's noncompliance with other medical treatment and regimen
CPT/HCPCS: 70450; 71045; 80053; 80178; 80307; 82550; 82552; 82728; 83540; 83550; 83735; 83880; 84443; 84484; 85025; 85610; 85730; 93005; 96372; 96374; 99285; C9113; J0282; J1160; J1630; J1650; J2060; J2920; J2930; J7030; J7050

== ENCOUNTER 2018-02-12 01:43 | Observation (INO) | payer OTHER ==
[2018-02-12] VITALS (8 sets, daily range): BP systolic 106–143; BP diastolic 62–92; PULSE 91–123; RESP 16–20; TEMP 98.1–98.8; O2SAT 95–100
[~2018-02-12] VITALS: Ht 188 cm; Wt 108.0 kg
[2018-02-12] MEDS ORDERED: SODIUM CHLORID 0.9% 500 ML INJ 500 ML IV ONE ×2 (01:50→04:00)
[2018-02-12] MEDS ORDERED: METOPROLOL TARTRATE 5 MG/5 ML VIAL IV PUSH ONE ×2 (01:50→04:30)
[2018-02-12] MEDS ORDERED: RESP: ALBUTEROL 2.5 MG/IPRATROPIUM 0.5 MG NEB (SCH) NEB ONE ×2 (01:50)
[2018-02-12] MEDS ORDERED: IOHEXOL 350 MG/ML 10 ML VIAL (for RAD DIAG) IVCONTRAST ONE (02:46)
[2018-02-12] MEDS ORDERED: LORazepam 2 MG/ML VIAL IV PUSH ONE (03:15)
[2018-02-12] MEDS ORDERED: ONDANSETRON ODT 4 MG TAB PO ONE (03:15)
[2018-02-12 03:22] LABS: ALBUMIN 4.2 GM/DL (3.4-5.0); ALKALINE PHOSPHATASE 91 U/L (45-117); ALT (GPT) 21 U/L (12-78); AST (GOT) 17 U/L (15-37); BICARBONATE 25.3 MEQ/L (21.0-32.0); BLOOD UREA NITROGEN 14 MG/DL (7-18); CALCIUM 8.9 MG/DL (8.5-10.1); CHLORIDE 109 MEQ/L (98-107); CREATININE 1.16 MG/DL (0.60-1.30); GLOMERULAR FILTRATION RATE 67 ML/MIN (>89); GLUCOSE,RANDOM 106 MG/DL (74-106); PROTHROMBIN TIME - PATIENT 10.5 SEC (9.8-11.6); SODIUM (NA) 145 MEQ/L (136-145); TOTAL BILIRUBIN ADULT 0.5 MG/DL (0.2-1.0); TOTAL PROTEIN 7.2 GM/DL (6.4-8.2); TROPONIN I LESS THAN 0.02 NG/ML (0.02-0.05)
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
[2018-02-12] MEDS ORDERED: AZITHROMYCIN INJ 500 MG in SODIUM CHLOR 0.9% 250 ML INJ 250 ML IV ONE (04:00)
[2018-02-12] MEDS ORDERED: DILTIAZEM HCL 60 MG TAB PO ONE (04:00)
[2018-02-12] MEDS: SODIUM CHLOR 0.9% 1000 ML INJ 1,000 ML IV SCH ×2 (04:17→15:23)
[2018-02-12] MEDS: THIAMINE HCL 100 MG TAB PO SCH ×2 (04:29→08:31)
[2018-02-12] MEDS ORDERED: LORazepam 2 MG TAB PO PRN (04:30)
[2018-02-12] MEDS ORDERED: SENNOSIDES 8.6 MG TAB PO PRN (04:30)
[2018-02-12] MEDS ORDERED: MORPHINE SULFATE 2 MG/ML SYRINGE IV PUSH PRN (04:30)
[2018-02-12] MEDS ORDERED: FLUMAZENIL 0.5 MG/5 ML VIAL IV PUSH PRN (04:30)
[2018-02-12] MEDS ORDERED: LORazepam 1 MG TAB PO PRN (04:30)
[2018-02-12] MEDS ORDERED: HALOPERIDOL LACTATE 5 MG/ML AMP IM PRN (04:30)
[2018-02-12] MEDS ORDERED: ACETAMINOPHEN 325 MG TAB PO PRN (04:30)
[2018-02-12] MEDS ORDERED: LACTULOSE SYRUP 20 GM/30 ML CUP PO PRN (04:30)
[2018-02-12] MEDS ORDERED: MAGNESIUM HYDROXIDE SUSP 30 ML CUP PO PRN (04:30)
[2018-02-12] MEDS ORDERED: SODIUM CHLORIDE 0.9% FLUSH 10 ML FLUSH IV FLUSH PRN (04:30)
[2018-02-12] MEDS ORDERED: LORazepam 2 MG/ML VIAL IV PUSH PRN ×4 (04:30)
[2018-02-12] MEDS ORDERED: ACETAMINOPHEN/HYDROcodone 325 MG/5 MG TAB PO PRN (04:30)
[2018-02-12] MEDS ORDERED: BISACODYL 10 MG SUPP RECTAL PRN (04:30)
[2018-02-12] MEDS ORDERED: METOCLOPRAMIDE HCL 10 MG/2 ML VIAL IV PUSH PRN (04:30)
[2018-02-12] MEDS ORDERED: RESP: ALBUTEROL 2.5 MG/IPRATROPIUM 0.5 MG NEB (PRN) NEB (04:30)
--- NOTE | 2018-02-12 04:40 | HHI.HP ---
[facility] Primary Care Physician No Primary Care Physician Admission Diagnosis Atrial fibrillation with RVR, bronchitis, chest pain rule out ACS Diagnoses: (1) A-fib Diagnosis: Principal (2) Chest pain Diagnosis: Principal (3) Bronchitis Diagnosis: Principal (4) Alcohol abuse Diagnosis: Principal Travel History International Travel<30 Days: No Contact w/Intl Traveler <30 Da: No Traveled to Known Affected Are: No History of Present Illness This is a 47-year-old Homeless male with a PMH of A. fib, Bipolar Disorder, Anxiety, Depression, Alcohol Abuse, Tobacco Abuse and h/o Cocaine Abuse who was brought to the ER by EMS secondary to c/o chest pain and SOB. Upon EMS arrival , pt noted to be in A-fib w/ RVR, HR 140's. S/p Cardizem 60mg PO in ER in addition to Lopressor 5mg IV w/ some improvement, HR now 100's. States he was taking Cardizem 60mg bid and was increased to Cardizem 90mg q8h at which time he was well controlled, however ran out of meds 1wk ago. Also notes substernal chest pain, w/ occasional radiation to back, moderate, 7/10, no alleviating factors. Denies fever or chills but notes productive cough w/ yellow/brown colored sputum. BP 122/79, HR 108, O2 sat 98% on RA, Afebrile. CBC unremarkable. Chemistry unremarkable. Troponin negative. INR 1.0. Alcohol 89. CTA Pulm negative for PE, peribronchial thickening consistent w/ bronchitis. Pt does admit to drinking, approx 18-20 beers per day, only had 3 beers today due to symptoms. Review of Systems Except as stated in HPI: all other systems reviewed are Neg ROS: 14 point review of systems otherwise negative. Past Family Social History Past Medical History PMH: A. fib, Bipolar Disorder, Anxiety, Depression, Alcohol Abuse, Tobacco Abuse and h/o Cocaine Abuse Past Surgical History PAST SURGICAL HISTORY: Cholecystectomy, Eyelid Surgery Allergies: Coded Allergies: tetanus toxoid, adsorbed (Unverified Allergy, Severe, 02/12/18) Family History PAST FAMILY HISTORY: Reviewed. No h/o DM or CAD Social History PAST SOCIAL HISTORY: Drinks 18-20 beers per day. Smokes 2ppd. H/o Cocaine Abuse. Physical Exam Vital Signs Vital Signs Date Time Temp Pulse Resp B/P (MAP) Pulse Ox O2 Delivery O2 Flow Rate FiO2 02/12/18 03:55 100 21 02/12/18 03:28 99 16 143/82 (102) 100 Room Air 02/12/18 01:45 98.2 123 16 136/92 (107) 98 Physical Exam PE: GENERAL: Middle-aged white male in mild distress due to SOB, appears much older than stated age. Disheveled. HEENT: PERRLA, EOMI. No scleral icterus or conjunctival pallor. No lid lag or facial droop. CARDIOVASCULAR: A. fib with RVR, HR 100's. No obvious murmurs to auscultation. No chest tenderness to palpation. RESPIRATORY: No obvious rhonchi, occasional wheezing. Clear to auscultation. Breath sounds equal bilaterally. GASTROINTESTINAL: Abdomen soft, non-tender, nondistended. BS normal. MUSCULOSKELETAL: Extremities without clubbing, cyanosis, or edema. No obvious deformities. NEUROLOGICAL: Awake, alert and oriented x4. No focal neurologic deficits. Moving both upper and lower extremities spontaneously. Laboratory Laboratory Tests Test 02/12/18 01:50 Prothrombin Time 10.5 Prothromb Time International Ratio 1.0 Activated Partial Thromboplast Time 27.3 Blood Urea Nitrogen 14 Creatinine 1.16 Random Glucose 106 Total Protein 7.2 Albumin 4.2 Calcium Level 8.9 Alkaline Phosphatase 91 Aspartate Amino Transf (AST/SGOT) 17 Alanine Aminotransferase (ALT/SGPT) 21 Total Bilirubin 0.5 Sodium Level 145 Potassium Level 4.3 Chloride Level 109 Carbon Dioxide Level 25.3 Anion Gap 11 Estimat Glomerular Filtration Rate 67 Lactic Acid Level 2.8 Total Creatine Kinase 86 Troponin I LESS THAN 0.02 Ethyl Alcohol Level 89 Date/Time Source Procedure Growth Status 02/12/18 02:15 Blood Peripheral Aerobic Blood Culture Pending Received 02/12/18 02:15 Blood Peripheral Anaerobic Blood Culture Pending Received Result Diagram: 02/12/18 0150 Caprini VTE Risk Assessment Caprini VTE Risk Assessment: No/Low Risk (score <= 1) Caprini Risk Assessment Model Point Value = 1 Point Value = 2 Point Value = 3 Point Value = 5 Age 41-60 Minor surgery BMI > 25 kg/m2 Swollen legs Varicose veins or History of unexplained or recurrent spontaneous Oral contraceptives or hormone replacement Sepsis (< 1 month) Serious lung disease, including pneumonia (< 1 month) Abnormal pulmonary function Acute myocardial infarction Congestive heart failure (< 1 month) History of inflammatory bowel disease Medical patient at bed rest Age 61-74 Arthroscopic surgery Major open surgery (> 45 min) Laparoscopic surgery (> 45 min) Malignancy Confined to bed (> 72 hours) Immobilizing plaster cast Central venous access Age >= 75 History of VTE Family history of VTE Factor V Leiden Prothrombin [id number] Lupus anticoagulant Anticardiolipin antibodies Elevated serum homocysteine Heparin-induced thrombocytopenia Other congenital or acquired thrombophilia Stroke (< 1 month) Elective arthroplasty Hip, pelvis, or leg fracture Acute spinal cord injury (< 1 month) Prophylaxis Regimen Total Risk Factor Score Risk Level Prophylaxis Regimen 0-1 Low Early ambulation 2 Moderate Order ONE of the following: *Sequential Compression Device (SCD) *Heparin 5000 units SQ BID 3-4 Higher Order ONE of the following medications: *Heparin 5000 units SQ TID *Enoxaparin/Lovenox 40 mg SQ daily (WT < 150 kg, CrCl > 30 mL/min) *Enoxaparin/Lovenox 30 mg SQ daily (WT < 150 kg, CrCl > 10-29 mL/min) *Enoxaparin/Lovenox 30 mg SQ BID (WT < 150 kg, CrCl > 30 mL/min) AND/OR *Sequential Compression Device (SCD) 5 or more Highest Order ONE of the following medications: *Heparin 5000 units SQ TID (Preferred with Epidurals) *Enoxaparin/Lovenox 40 mg SQ daily (WT < 150 kg, CrCl > 30 mL/min) *Enoxaparin/Lovenox 30 mg SQ daily (WT < 150 kg, CrCl > 10-29 mL/min) *Enoxaparin/Lovenox 30 mg SQ BID (WT < 150 kg, CrCl > 30 mL/min) AND *Sequential Compression Device (SCD) Assessment and Plan Problem List: (1) Atrial fibrillation with RVR ICD Code: I48.91 - Unspecified atrial fibrillation Status: Acute (2) Bronchitis ICD Code: J40 - Bronchitis, not specified as acute or chronic (3) Chest pain ICD Code: R07.9 - Chest pain, unspecified (4) Alcohol abuse ICD Code: F10.10 - Alcohol abuse, uncomplicated Assessment and Plan A/P: 1. A-fib w/ RVR: HR 150's on arrival, s/p Cardizem PO and Lopressor 5mg IV w/ some improvement, HR 100's, non-compliant w/ home medications and compounded by alcohol abuse, restart Cardizem and add Metoprolol. 2. Chest Pain: likely secondary to A-fib and Bronchitis, initial trop negative , will admit for Observation, telemetry, check serial cardiac enzymes. NTG/ Morphine prn as needed. 3. Bronchitis: CTA Pulm negative for PE, peribronchial thickening consistent w / bronchitis, images reviewed by me, occasional wheezing. Solu-Medrol, Levaquin , Symbicort, Mucinex, Xopenex in light of A-fib 4. Alcohol Abuse: Heavy, drinks 18-20 beers per day, high risk for withdrawal , Seizure Precautions, MVT/Thiamine/Folate replacement, CIWA. 5. DVT Prophylaxis: SCD/Teds 6. Social work for d/c planning as needed 7. Case discussed w/ ER physician at length, labs/records/imaging reviewed by me. Doris Beavers MD February 12, 2018 04:40
[2018-02-12] MEDS: methylPREDNISolone SOD SUCC 40 MG/1 ML VIAL IV PUSH SCH ×4 (06:49→22:28)
[2018-02-12 07:41] LABS: BASOPHIL % 0.1 % (0.0-2.0); HEMATOCRIT 39.5 % (39.0-51.0); LYMPH % 5.6 % (9.0-44.0); LYMPHOCYTE # 1.4 TH/MM3 (1.0-4.8); MEAN CELL VOLUME 71.2 FL (80.0-100.0); MEAN CORPUSCULAR HEMOGLOBIN 21.7 PG (27.0-34.0); MEAN CORPUSCULAR HGB CONC 30.5 % (32.0-36.0); MEAN PLATELET VOLUME 8.1 FL (7.0-11.0); MONO % 3.5 % (0.0-8.0); MONOCYTE # 0.9 TH/MM3 (0-0.9); NEUT % 90.8 % (16.0-70.0); PLATELET COUNT 403 TH/MM3 (150-450); RED BLOOD COUNT 5.55 MIL/MM3 (4.50-5.90); RED CELL DISTRIBUTION WIDTH 25.3 % (11.6-17.2); WHITE BLOOD COUNT 24.3 TH/MM3 (4.0-11.0)
[2018-02-12] MEDS: DOCUSATE SODIUM 50 MG/SENNA 8.6 MG TAB PO SCH ×2 (08:31→21:00)
[2018-02-12] MEDS: FOLIC ACID 1 MG TAB PO SCH (08:31)
[2018-02-12] MEDS: SODIUM CHLORIDE 0.9% FLUSH 10 ML FLUSH IV FLUSH SCH ×2 (08:31→21:00)
[2018-02-12] MEDS: MULTIVITAMINS/MINERALS THERAPEUTIC TAB PO SCH (08:31)
[2018-02-12] MEDS ORDERED: DILTIAZEM-CD 120 MG CAP ER PO SCH (09:00)
[2018-02-12] MEDS ORDERED: METOPROLOL TARTRATE 25 MG TAB PO SCH (09:00)
--- NOTE | 2018-02-12 09:01 | HHI.PR ---
Subjective Remarks Follow up for afib RVR, bronchitis. The patient reports feeling slightly better this morning. He denies any chest pain or shortness of breath. He reports continued cough, nonproductive. Denies fevers/chills. He admits to running out of his cardizem prescription. Denies any recent cocaine use. Admits to drinking alcohol. He is homeless, states he's from [place]. Objective Vitals Vital Signs Date Time Temp Pulse Resp B/P (MAP) Pulse Ox O2 Delivery O2 Flow Rate FiO2 02/12/18 08:04 98.1 91 20 109/64 (79) 97 02/12/18 05:38 98.1 96 16 121/79 (93) 98 02/12/18 05:20 02/12/18 03:55 100 21 02/12/18 03:28 99 16 143/82 (102) 100 Room Air 02/12/18 01:45 98.2 123 16 136/92 (107) 98 I/O 02/11/18 02/11/18 02/11/18 02/12/18 02/12/18 02/12/18 07:00 15:00 23:00 07:00 15:00 23:00 Intake Total 500 ml Balance 500 ml Intake IV Total 500 ml Result Diagram: 02/12/18 0150 02/12/[address]-PA negative for PE, shows peribronchial thickening bilaterally, more severe in the lower lobes. Objective Remarks GENERAL: Well-nourished, well-developed middle aged male patient in [facility]. Drowsy. SKIN: Warm and dry. No rash. HEENT: Normocephalic. Atraumatic. Pupils equal and round. Mucous membranes pink and moist. NECK: Trachea midline. CARDIOVASCULAR: Irregular rate and rhythm. No murmur appreciated. RESPIRATORY: No accessory muscle use. Diminished breath sounds at bilateral bases with occasional expiratory wheezing. Breath sounds equal bilaterally. GASTROINTESTINAL: Abdomen soft, non-tender, nondistended. Normoactive bowel sounds x4. MUSCULOSKELETAL: No obvious deformities. Extremities without clubbing, cyanosis , or edema. NEUROLOGICAL: Awake and alert. No obvious cranial nerve deficits. Motor grossly within normal limits. Moving all extremities spontaneously. Normal speech. Medications and IVs Current Medications Medications (Trade) Dose Ordered Sig/Claire Route Start Time Stop Time Status Last Admin (Cardizem Cd) 120 mg DAILY PO 5/20/18 09:00 02/12/18 08:31 (Folate) 1 mg DAILY PO 02/12/18 09:00 02/17/18 08:59 02/12/18 08:31 (Vitamin B1) 100 mg DAILY PO 02/12/18 04:30 02/12/18 08:31 (Theragran M Tab) 1 tab DAILY PO 02/12/18 09:00 02/17/18 08:59 02/12/18 08:31 (Romazicon Inj) 0.2 mg Q1M PRN IV PUSH 02/12/18 04:30 (Ativan) 1 mg Q4H PRN PO 02/12/18 04:30 (Ativan Inj) 1 mg Q4H PRN IV PUSH 02/12/18 04:30 (Ativan) 2 mg Q2H PRN PO 02/12/18 04:30 (Ativan Inj) 2 mg Q2H PRN IV PUSH 02/12/18 04:30 (Ativan Inj) 2 mg Q1H PRN IV PUSH 02/12/18 04:30 (Ativan Inj) 2 mg Q15M PRN IV PUSH 02/12/18 04:30 (Haldol Inj) 2 mg Q15M PRN IM 02/12/18 04:30 Sodium Chloride 1,000 ml @ 100 mls/hr Q10H IV 02/12/18 04:17 (NS Flush) 2 ml UNSCH PRN IV FLUSH 02/12/18 04:30 (NS Flush) 2 ml BID IV FLUSH 02/12/18 09:00 02/12/18 08:31 (Reglan Inj) 5 mg Q6H PRN IV PUSH 02/12/18 04:30 (Tylenol) 650 mg Q6H PRN PO 02/12/18 04:30 ([place] 5-325 Mg) 1 tab Q4H PRN PO 02/12/18 04:30 (Morphine Inj) 2 mg Q3H PRN IV PUSH 02/12/18 04:30 (Qian-Colace) 1 tab BID PO 02/12/18 09:00 (Milk Of Magnesia Liq) 30 ml Q12H PRN PO 02/12/18 04:30 (Senokot) 17.2 mg Q12H PRN PO 02/12/18 04:30 (Dulcolax Supp) 10 mg DAILY PRN RECTAL 02/12/18 04:30 (Lactulose Liq) 30 ml DAILY PRN PO 02/12/18 04:30 (SoluMEDROL INJ) 40 mg Q6HR IV PUSH 02/12/18 06:00 02/12/18 06:49 (Symbicort 160-4.5 Mcg Inh) 2 puff Q12HR INH 02/12/18 09:00 (Duoneb Neb) 1 ampule Q4HR NEB PRN NEB 02/12/18 04:30 Levofloxacin/ Dextrose 150 ml @ 100 mls/hr Q24H IV 02/12/18 23:00 A/P Problem List: (1) Atrial fibrillation with RVR ICD Code: I48.91 - Unspecified atrial fibrillation Status: Acute (2) Bronchitis ICD Code: J40 - Bronchitis, not specified as acute or chronic (3) Chest pain ICD Code: R07.9 - Chest pain, unspecified (4) Alcohol abuse ICD Code: F10.10 - Alcohol abuse, uncomplicated Assessment and Plan 47-year-old Homeless male with a PMH of A. fib, Bipolar Disorder, Anxiety, Depression, Alcohol Abuse, Tobacco Abuse and h/o Cocaine Abuse who was brought to the ER by EMS secondary to c/o chest pain and SOB. Upon EMS arrival, pt noted to be in A-fib w/ RVR, HR 140's. S/p Cardizem 60mg PO in ER in addition to Lopressor 5mg IV w/ some improvement, HR now 100's. A-fib w/ RVR: HR 150's on arrival, s/p Cardizem PO and Lopressor 5mg IV w/ some improvement, HR 100's, non-compliant w/ home medications and compounded by alcohol abuse -restart patient's Cardizem 120mg daily -avoid BB with recent cocaine use (UDS positive for cocaine in December 2017) -[id number] score of 1 (HTN), start baby aspirin daily -monitor on telemetry Chest Pain: likely secondary to A-fib and Bronchitis. No hx of CAD. -Rule out ACS with serial cardiac enzymes and EKGs, first troponin negative -NTG/Morphine prn as needed. -Chest pain currently resolved Sepsis with Acute Bronchitis: CTA Pulm negative for PE, but shows peribronchial thickening consistent w/ bronchitis. WBC 24K, tachycardic, suspected source- bronchitis. -Continue IV Solu-Medrol, Levaquin, Symbicort, Mucinex, Xopenex in light of A -fib Leukocytosis: WBC 24K. Suspect secondary to bronchitis. -Continue antibiotics as above -Blood cultures collected and pending -Monitor CBC Alcohol Abuse: Heavy, drinks 18-20 beers per day, high risk for withdrawal -Seizure Precautions -MVT/Thiamine/Folate replacement -[facility] protocol DVT Prophylaxis: SCD/Teds Zara Méndez PA-C February 12, 2018 09:01
[2018-02-12] MEDS: BUDESONIDE-FORMOTEROL 160/4.5 MCG INHALER INH SCH ×2 (10:45→22:27)
--- NOTE | 2018-02-12 16:07 | RADRPT ---
EXAM DATE/TIME: 02/12/2018 02:46 [facility] COMPARISON: No previous studies available for comparison. INDICATIONS : Chest pain. IV CONTRAST: 75 cc Omnipaque 350 (iohexol) IV RADIATION DOSE: 22.27 CTDIvol (mGy) MEDICAL HISTORY : Cerebrovascular disease. Cardiovascular disease SURGICAL HISTORY : None. ENCOUNTER: Initial ACUITY: 2 days PAIN SCALE: 5/10 LOCATION: Bilateral chest TECHNIQUE: Volumetric scanning of the chest was performed using a pulmonary embolism protocol MIP images were re constructed. Using automated exposure control and adjustment of the mA and/or kV according to patien t size, radiation dose was kept as low as reasonably achievable to obtain optimal diagnostic quality images. DICOM format image data is available electronically for review and comparison. Follow-up recommendations for detected pulmonary nodules are based at a minimum on nodule size and pa tient risk factors according to Fleischner Society Guidelines. FINDINGS: No filling defects to suggest pulmonary embolic disease. There is peribronchial thickening present mo st severe in the lower lobes without significant bronchiectasis. Minimal dependent opacity in the leroy gs. No pleural or pericardial effusion. No adenopathy. CONCLUSION: 1. Negative for pulmonary embolus. 2. Peribronchial thickening bilaterally more severe in the lower lobes. Buck Hernandez MD on February 12, 2018 at 3:25 Board Certified Radiologist. This report was verified electronically.
--- NOTE | 2018-02-12 16:08 | RADRPT ---
EXAM DATE/TIME: 02/12/2018 02:18 [facility] COMPARISON: No previous studies available for comparison. INDICATIONS : Chest pain and shortness of breath. MEDICAL HISTORY : Cerebrovascular disease. Seizures. Cardiovascular disease SURGICAL HISTORY : None. ENCOUNTER: Initial ACUITY: 1 day PAIN SCORE: 5/10 LOCATION: Bilateral chest FINDINGS: A single view of the chest demonstrates the lungs to be symmetrically aerated without evidence of mas s, infiltrate or effusion. The cardiomediastinal contours are unremarkable. Osseous structures are intact. CONCLUSION: No acute disease. Buck Hernandez MD on February 12, 2018 at 2:36 Board Certified Radiologist. This report was verified electronically.
--- NOTE | 2018-02-12 17:45 | EKG ---
Date Performed: 02/12/2018 Time Performed: 14:00:13 PTAGE: 47 years EKG: ATRIAL FIBRILLATION WITH RAPID VENTRICULAR RESPONSE NONSPECIFIC ST & T-WAVE ABNORMALITY ABN ORMAL RHYTHM ECG NO PREVIOUS TRACING DOCTOR: Israel Garner Interpretating Date/Time 02/12/2018 17:44:33
--- NOTE | 2018-02-12 20:45 | EKG ---
Date Performed: 02/12/2018 Time Performed: 08:14:04 PTAGE: 47 years EKG: ATRIAL FIBRILLATION ABNORMAL RHYTHM ECG NO PREVIOUS TRACING DOCTOR: Jovon Yu Interpretating Date/Time 02/12/2018 20:44:31
--- NOTE | 2018-02-12 20:49 | EKG ---
Date Performed: 02/12/2018 Time Performed: 02:09:43 PTAGE: 47 years EKG: ATRIAL FIBRILLATION WITH RAPID VENTRICULAR RESPONSE ABNORMAL RHYTHM ECG NO PREVIOUS TRACING DOCTOR: Jovon Yu Interpretating Date/Time 02/12/2018 20:47:41
[2018-02-12] MEDS ORDERED: LEVOFLOXACIN 750 MG PREMIX INJ 150 ML IV SCH (23:00)
[2018-02-13 00:17] VITALS: PULSE 95
[2018-02-13 00:43] VITALS: BP 130/69; PULSE 104; RESP 16; TEMP 98.7; O2SAT 96
[2018-02-13] MEDS: SODIUM CHLOR 0.9% 1000 ML INJ 1,000 ML IV SCH (02:11)
[2018-02-13 04:57] VITALS: BP 137/74; PULSE 110; RESP 16; O2SAT 95
[2018-02-13] MEDS: methylPREDNISolone SOD SUCC 40 MG/1 ML VIAL IV PUSH SCH (05:17)
[2018-02-13 07:28] VITALS: BP 133/85; PULSE 108; RESP 18; TEMP 98.1; O2SAT 96
[2018-02-13 07:55] LABS: AUTOMATED NEUTROPHIL # 16.5 TH/MM3 (1.8-7.7); HEMATOCRIT 38.2 % (39.0-51.0); HEMOGLOBIN 11.2 GM/DL (13.0-17.0); LYMPH % 4.8 % (9.0-44.0); LYMPHOCYTE # 0.9 TH/MM3 (1.0-4.8); MEAN CELL VOLUME 71.7 FL (80.0-100.0); MONO % 2.8 % (0.0-8.0); MONOCYTE # 0.5 TH/MM3 (0-0.9); NEUT % 92.4 % (16.0-70.0); PLATELET COUNT 321 TH/MM3 (150-450); RED BLOOD COUNT 5.33 MIL/MM3 (4.50-5.90); RED CELL DISTRIBUTION WIDTH 24.2 % (11.6-17.2); WHITE BLOOD COUNT 17.8 TH/MM3 (4.0-11.0)
[2018-02-13 07:56] LABS: MEAN CORPUSCULAR HGB CONC 29.3 % (32.0-36.0)
[2018-02-13] MEDS: MULTIVITAMINS/MINERALS THERAPEUTIC TAB PO SCH (08:16)
[2018-02-13] MEDS: THIAMINE HCL 100 MG TAB PO SCH (08:16)
[2018-02-13] MEDS: FOLIC ACID 1 MG TAB PO SCH (08:16)
[2018-02-13] MEDS: DOCUSATE SODIUM 50 MG/SENNA 8.6 MG TAB PO SCH (08:17)
[2018-02-13] MEDS: SODIUM CHLORIDE 0.9% FLUSH 10 ML FLUSH IV FLUSH SCH (08:17)
[2018-02-13] MEDS: BUDESONIDE-FORMOTEROL 160/4.5 MCG INHALER INH SCH (08:17)
[2018-02-13 08:33] LABS: ALBUMIN 3.3 GM/DL (3.4-5.0); ALKALINE PHOSPHATASE 70 U/L (45-117); ALT (GPT) 18 U/L (12-78); AST (GOT) 15 U/L (15-37); BICARBONATE 25.1 MEQ/L (21.0-32.0); BLOOD UREA NITROGEN 22 MG/DL (7-18); CHLORIDE 109 MEQ/L (98-107); CREATININE 0.96 MG/DL (0.60-1.30); GLOMERULAR FILTRATION RATE 83 ML/MIN (>89); GLUCOSE,RANDOM 119 MG/DL (74-106); SODIUM (NA) 142 MEQ/L (136-145); TOTAL BILIRUBIN ADULT 0.5 MG/DL (0.2-1.0); TOTAL PROTEIN 5.8 GM/DL (6.4-8.2)
[2018-02-13] MEDS ORDERED: DILTIAZEM-CD 180 MG CAP ER PO SCH (09:00)
[2018-02-13] MEDS ORDERED: ASPIRIN EC 81 MG TABEC PO SCH (09:00)
[2018-02-13] MEDS ORDERED: VENTAER INH (09:08)
[2018-02-13] MEDS ORDERED: Budeson-Formot 160-4.5 Mcg Inh INH (09:08)
[2018-02-13] MEDS ORDERED: THIA100 PO (09:08)
[2018-02-13] MEDS ORDERED: ASPI-147 PO (09:08)
[2018-02-13] MEDS ORDERED: PRED20 PO (09:08)
[2018-02-13] MEDS ORDERED: CARD180C5 PO (09:08)
--- NOTE | 2018-02-13 09:08 | HHI.DCPOC ---
Discharge Care Plan Diagnosis: (1) Bronchitis (2) Atrial fibrillation with RVR (3) Alcohol abuse Goals to Promote Your Health * To prevent worsening of your condition and complications * To maintain your health at the optimal level Directions to Meet Your Goals Take your medications as prescribed Follow your dietary instruction Follow activity as directed Keep your appointments as scheduled Take your immunizations and boosters as scheduled If your symptoms worsen call your PCP, if no PCP go to Urgent Care Center or Emergency Room Smoking is Dangerous to Your Health. Avoid second hand smoke Call the 24-hour hour crisis hotline for domestic abuse at Zara Méndez PA-C February 13, 2018 09:08
[2018-02-13] MEDS ORDERED: LEVA750T9 PO (09:12)
--- NOTE | 2018-02-13 09:19 | HHI.PR ---
Subjective Remarks Follow up for afib RVR, bronchitis. The patient is seen ambulating the unit this morning, he states he feels great and wants to go home. Heart rate into 120s on telemetry while patient ambulating, decreases to 90s when resting. He denies any chest pain, palpitations, or shortness of breath. He states his wheezing has resolved. Has occasional nonproductive cough which he states is typical for him. Denies fevers/chills. Tolerating oral intake. O2 sat 96% on room air. He requests refills of all medications, ran out a couple weeks ago. Objective Vitals Vital Signs Date Time Temp Pulse Resp B/P (MAP) Pulse Ox O2 Delivery O2 Flow Rate FiO2 02/13/18 07:28 98.1 108 18 133/85 (101) 96 02/13/18 04:57 110 16 137/74 (95) 95 02/13/18 00:43 98.7 104 16 130/69 (89) 96 02/13/18 00:17 95 02/12/18 19:42 98.1 97 16 129/79 (96) 97 02/12/18 16:43 98.7 102 20 114/71 (85) 97 02/12/18 12:06 98.8 98 20 106/62 (77) 95 I/O 02/12/18 02/12/18 02/12/18 02/13/18 02/13/18 02/13/18 07:00 15:00 23:00 07:00 15:00 23:00 Intake Total 500 ml Output Total 1000 ml 800 ml Balance 500 ml -1000 ml -800 ml Intake IV Total 500 ml Output Urine Total 1000 ml 800 ml Result Diagram: 02/13/18 0726 02/13/18 0726 Imaging Last Impressions Chest X-Ray 02/12/18 0000 Signed Impressions: Service Date/Time: Monday, February 12, 2018 02:18 - CONCLUSION: No acute disease. Buck Hernandez MD CT Angiography 02/12/18 0000 Signed Impressions: Service Date/Time: Monday, February 12, 2018 02:46 - CONCLUSION: 1. Negative for pulmonary embolus. 2. Peribronchial thickening bilaterally more severe in the lower lobes. Buck Hernandez MD Objective Remarks GENERAL: Well-nourished, well-developed middle aged male patient in NAD. Ambulating the unit. SKIN: Warm and dry. No rash. HEENT: Normocephalic. Atraumatic. Pupils equal and round. Mucous membranes pink and moist. NECK: Trachea midline. CARDIOVASCULAR: Irregular rate and rhythm. No murmur appreciated. RESPIRATORY: No accessory muscle use. Clear to auscultation. Breath sounds equal bilaterally. GASTROINTESTINAL: Abdomen soft, non-tender, nondistended. Normoactive bowel sounds x4. MUSCULOSKELETAL: No obvious deformities. Extremities without clubbing, cyanosis , or edema. NEUROLOGICAL: Awake and alert. No obvious cranial nerve deficits. Motor grossly within normal limits. Moving all extremities spontaneously. Normal speech. Procedures None. Medications and IVs Current Medications Medications (Trade) Dose Ordered Sig/Claire Route Start Time Stop Time Status Last Admin (Folate) 1 mg DAILY PO 02/12/18 09:00 02/17/18 08:59 02/13/18 08:16 (Vitamin B1) 100 mg DAILY PO 02/12/18 04:30 02/13/18 08:16 (Theragran M Tab) 1 tab DAILY PO 02/12/18 09:00 02/17/18 08:59 02/13/18 08:16 (Romazicon Inj) 0.2 mg Q1M PRN IV PUSH 02/12/18 04:30 (Ativan) 1 mg Q4H PRN PO 02/12/18 04:30 (Ativan Inj) 1 mg Q4H PRN IV PUSH 02/12/18 04:30 (Ativan) 2 mg Q2H PRN PO 02/12/18 04:30 (Ativan Inj) 2 mg Q2H PRN IV PUSH 02/12/18 04:30 (Ativan Inj) 2 mg Q1H PRN IV PUSH 02/12/18 04:30 (Ativan Inj) 2 mg Q15M PRN IV PUSH 02/12/18 04:30 (Haldol Inj) 2 mg Q15M PRN IM 02/12/18 04:30 Sodium Chloride 1,000 ml @ 100 mls/hr Q10H IV 02/12/18 04:17 02/13/18 02:11 (NS Flush) 2 ml UNSCH PRN IV FLUSH 02/12/18 04:30 (NS Flush) 2 ml BID IV FLUSH 02/12/18 09:00 02/13/18 08:17 (Reglan Inj) 5 mg Q6H PRN IV PUSH 02/12/18 04:30 (Tylenol) 650 mg Q6H PRN PO 02/12/18 04:30 ([place] 5-325 Mg) 1 tab Q4H PRN PO 02/12/18 04:30 (Morphine Inj) 2 mg Q3H PRN IV PUSH 02/12/18 04:30 (Qian-Colace) 1 tab BID PO 02/12/18 09:00 02/13/18 08:17 (Milk Of Magnesia Liq) 30 ml Q12H PRN PO 02/12/18 04:30 (Senokot) 17.2 mg Q12H PRN PO 02/12/18 04:30 (Dulcolax Supp) 10 mg DAILY PRN RECTAL 02/12/18 04:30 (Lactulose Liq) 30 ml DAILY PRN PO 02/12/18 04:30 (SoluMEDROL INJ) 40 mg Q6HR IV PUSH 02/12/18 06:00 02/13/18 05:17 (Symbicort 160-4.5 Mcg Inh) 2 puff Q12HR INH 02/12/18 09:00 02/13/18 08:17 (Duoneb Neb) 1 ampule Q4HR NEB PRN NEB 02/12/18 04:30 Levofloxacin/ Dextrose 150 ml @ 100 mls/hr Q24H IV 02/12/18 23:00 02/12/18 22:28 (Ecotrin Ec) 81 mg DAILY PO 02/13/18 09:00 02/13/18 08:17 (Cardizem Cd) 180 mg DAILY PO 02/13/18 09:00 02/13/18 08:17 A/P Problem List: (1) Atrial fibrillation with RVR ICD Code: I48.91 - Unspecified atrial fibrillation Status: Acute (2) Bronchitis ICD Code: J40 - Bronchitis, not specified as acute or chronic (3) Chest pain ICD Code: R07.9 - Chest pain, unspecified (4) Alcohol abuse ICD Code: F10.10 - Alcohol abuse, uncomplicated Assessment and Plan 47-year-old Homeless male with a PMH of A. fib, Bipolar Disorder, Anxiety, Depression, Alcohol Abuse, Tobacco Abuse and h/o Cocaine Abuse who was brought to the ER by EMS secondary to c/o chest pain and SOB. Upon EMS arrival, pt noted to be in A-fib w/ RVR, HR 140's. S/p Cardizem 60mg PO in ER in addition to Lopressor 5mg IV w/ some improvement, HR now 100's. A-fib w/ RVR: HR 150's on arrival, s/p Cardizem PO and Lopressor 5mg IV w/ some improvement, HR 100's, non-compliant w/ home medications and compounded by alcohol abuse -restart patient's Cardizem 120mg daily, HR still not optimally controlled, increased Cardizem CD to 180mg daily -avoid BB with recent cocaine use (UDS positive for cocaine in December 2017) -[id number] score of 1 (HTN), start baby aspirin daily -monitor on telemetry, HR increases to 120 with ambulation, decreased appropriately with rest to 90s. Chest Pain: likely secondary to A-fib and Bronchitis. No hx of CAD. -Ruled out ACS with negative serial cardiac enzymes x3 and EKG without acute ST changes -NTG/Morphine prn as needed. -Chest pain resolved with resolution of RVR Sepsis with Acute Bronchitis: CTA Pulm negative for PE, but shows peribronchial thickening consistent w/ bronchitis. WBC 24K, tachycardic, suspected source- bronchitis. -Continue IV Solu-Medrol, Levaquin, Symbicort, Mucinex, Xopenex in light of A -fib -Symptoms much improved, no further wheezing, O2 sat 96% on room air, patient able to ambulate the unit without any difficulty Leukocytosis: WBC 24K. Suspect secondary to bronchitis. -Continue antibiotics as above -Blood cultures with NGTD -CBC improving with downtrending WBC 24K --> 17K. Suspect slight elevation secondary to steroids. -Patient remained afebrile throughout admission Alcohol Abuse: Heavy, drinks 18-20 beers per day, high risk for withdrawal -Seizure Precautions -MVT/Thiamine/Folate replacement -[facility] protocol DVT Prophylaxis: SCD/Teds Discharge Planning Discharge patient to home Condition on discharge: Stable Heart Healthy Diet as tolerated Ad Hilda activity Rx written: albuterol inhaler prn, ecotrin 81mg daily, Cardizem CD 180mg daily, Levaquin 750mg qd x5days, prednisone 40mg daily x5days, Symbicort bid, Thiamine 100mg daily Follow-up with primary care physician, cardiology, and [facility]son for alcohol detox/rehab Zara Méndez PA-C February 13, 2018 9:19 am
== END 2018-02-13 11:32 | disposition home or self-care (01) ==
LOC: NEPC 01:43 → NEDA 04:22 → NEPGCP 05:08
PROVIDERS: ADMIT Internal Medicine; ATTEND Internal Medicine
DX: I48.91 Unspecified atrial fibrillation (principal); A41.9 Sepsis, unspecified organism; J44.0 Chronic obstructive pulmonary disease with (acute) lower respiratory infection; J20.9 Acute bronchitis, unspecified; F10.10 Alcohol abuse, uncomplicated; R07.89 Other chest pain; I25.10 Atherosclerotic heart disease of native coronary artery without angina pectoris; I10 Essential (primary) hypertension; F31.9 Bipolar disorder, unspecified; F41.9 Anxiety disorder, unspecified; F20.9 Schizophrenia, unspecified; R94.31 Abnormal electrocardiogram [ECG] [EKG]; F17.200 Nicotine dependence, unspecified, uncomplicated; Z59.0 Homelessness; Z86.73 Personal history of transient ischemic attack (TIA), and cerebral infarction without residual deficits; Z91.14 Patient's other noncompliance with medication regimen
CPT/HCPCS: 71045; 71275; 80053; 80307; 82550; 82948; 83605; 83880; 84484; 85025; 85610; 85730; 87040; 93005; 94640; 94664; 96361; 96365; 96367; 96375; 96376; 99285; G0378; J0456; J1956; J2060; J2920; J7030; J7040; J7050; Q9967

== ENCOUNTER 2018-02-16 20:07 | Observation (INO) | payer OTHER ==
[2018-02-16] VITALS (7 sets, daily range): BP systolic 108–141; BP diastolic 65–94; PULSE 90–118; RESP 15–22; TEMP 98.4; O2SAT 98–99
[~2018-02-16] VITALS: Ht 188 cm; Wt 115.0 kg
[~2018-02-16 20:07] MED LIST changes: +ASPI-147 PO; +Budeson-Formot 160-4.5 Mcg Inh INH; +CARD180C5 PO; -CHLO200T5 PO; -DILT90TA PO; -FERR325T20 PO; +LEVA750T9 PO; -LITH300C2 PO; -MIRT30TA PO; +PRED20 PO; +THIA100 PO; +VENTAER INH
[2018-02-16] MEDS ORDERED: SODIUM CHLORIDE 0.9% FLUSH 10 ML FLUSH IVF PRN (20:15)
[2018-02-16] MEDS ORDERED: ASPIRIN 81 MG CHEW TAB PO ONE (20:15)
[2018-02-16] MEDS ORDERED: METOPROLOL TARTRATE 5 MG/5 ML VIAL IV PUSH ONE (20:15)
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
--- NOTE | 2018-02-16 20:33 | RADRPT ---
EXAM DATE: 02/16/2018 8:30 PM EDT AGE/SEX: 47 years / Male INDICATIONS: Increased shortness of breath and chest pain for one day. CLINICAL DATA: This is the patient's initial encounter. Patient reports that signs and symptoms have been present for 1 day and indicates a pain score of 6/10. MEDICAL/SURGICAL HISTORY: Chronic obstructive pulmonary disease. Asthma. A fib. None. COMPARISON: [facility] [place], CHEST SINGLE AP, 02/10/2018. . FINDINGS: A single AP view of the chest demonstrates the lungs to be symmetrically aerated without evidence of mass, infiltrate or effusion. The cardiomediastinal contours are unremarkable. Osseous structures a re intact. CONCLUSION: No acute cardiopulmonary disease. Electronically signed by: Mckinley Ramirez MD 02/16/2018 8:32 PM EDT
[2018-02-16 20:37] LABS: AUTOMATED NEUTROPHIL # 7.8 TH/MM3 (1.8-7.7); BASOPHIL % 0.2 % (0.0-2.0); EOSINOPHIL # 0.5 TH/MM3 (0-0.4); HEMATOCRIT 35.8 % (39.0-51.0); HEMOGLOBIN 10.9 GM/DL (13.0-17.0); LYMPH % 22.3 % (9.0-44.0); LYMPHOCYTE # 2.7 TH/MM3 (1.0-4.8); MEAN CELL VOLUME 69.9 FL (80.0-100.0); MEAN CORPUSCULAR HEMOGLOBIN 21.2 PG (27.0-34.0); MEAN CORPUSCULAR HGB CONC 30.3 % (32.0-36.0); MEAN PLATELET VOLUME 8.7 FL (7.0-11.0); MONO % 9.8 % (0.0-8.0); MONOCYTE # 1.2 TH/MM3 (0-0.9); NEUT % 63.7 % (16.0-70.0); PLATELET COUNT 313 TH/MM3 (150-450); RED BLOOD COUNT 5.12 MIL/MM3 (4.50-5.90); RED CELL DISTRIBUTION WIDTH 24.3 % (11.6-17.2); WHITE BLOOD COUNT 12.2 TH/MM3 (4.0-11.0)
[2018-02-16 20:57] LABS: BICARBONATE 23.6 MEQ/L (21.0-32.0); BLOOD UREA NITROGEN 18 MG/DL (7-18); CALCIUM 8.2 MG/DL (8.5-10.1); CHLORIDE 112 MEQ/L (98-107); CREATININE 1.07 MG/DL (0.60-1.30); GLOMERULAR FILTRATION RATE 73 ML/MIN (>89); GLUCOSE,RANDOM 89 MG/DL (74-106); MAGNESIUM 2.3 MG/DL (1.5-2.5); SODIUM (NA) 143 MEQ/L (136-145)
[2018-02-16 20:58] LABS: PROTHROMBIN TIME - PATIENT 10.6 SEC (9.8-11.6)
[2018-02-16 21:02] LABS: TROPONIN I LESS THAN 0.02 NG/ML (0.02-0.05)
[2018-02-16] MEDS ORDERED: SODIUM CHLOR 0.9% 250 ML INJ 250 ML IV ONE ×2 (21:15→22:00)
[2018-02-17 00:30] VITALS: PULSE 86; RESP 19; O2SAT 98
[2018-02-17] MEDS ORDERED: BISACODYL 10 MG SUPP RECTAL PRN (01:15)
[2018-02-17] MEDS ORDERED: LACTULOSE SYRUP 20 GM/30 ML CUP PO PRN (01:15)
[2018-02-17] MEDS ORDERED: SENNOSIDES 8.6 MG TAB PO PRN (01:15)
[2018-02-17] MEDS ORDERED: ACETAMINOPHEN 325 MG TAB PO PRN (01:15)
[2018-02-17] MEDS ORDERED: SODIUM CHLORIDE 0.9% FLUSH 10 ML FLUSH IV FLUSH PRN (01:15)
[2018-02-17] MEDS ORDERED: NALOXONE HCL 0.4 MG/ML AMP IV PUSH PRN (01:15)
[2018-02-17] MEDS ORDERED: MAGNESIUM HYDROXIDE SUSP 30 ML CUP PO PRN (01:15)
[2018-02-17] MEDS ORDERED: SODIUM CHLOR 0.9% 250 ML INJ 250 ML ONE (01:45)
--- NOTE | 2018-02-17 01:48 | HHI.HP ---
[facility] No Primary Care Physician Admission Diagnosis chest pain; afrvr Diagnoses: Chief Complaint: Chest pain, rapid heart rate Travel History International Travel<30 Days: No Contact w/Intl Traveler <30 Da: No Traveled to Known Affected Are: No History of Present Illness 47-year-old male with a history of A. fib, CHF, bipolar, COPD, CVA, CAD, tobacco /alcohol use, hypertension presents to the ED with chest pain and a rapid heartbeat. Patient was just recently hospitalized for A. fib RVR and bronchitis discharged on Cardizem and Levaquin. During this hospitalization Cardizem was decreased to 180 mg daily from 90 mg 3 times daily. Patient states he has been taking his medications as prescribed. Patient states today he felt that he had a rapid heart rate with associated midsternal stabbing chest pain, intermittent, 6/10, with radiation to his back with no associated symptoms. Upon examination patient seems to be resting, heart rate is now controlled and patient states his chest pain has resolved. He is currently homeless but states he is able to get his medications outpatient. Patient does have a history of alcohol abuse and usually binge drinks but since discharge he has not had any alcohol. Review of Systems Except as stated in HPI: all other systems reviewed are Neg Past Family Social History Past Medical History A. fib Bipolar Anxiety Depression Alcohol abuse Tobacco abuse History of cocaine abuse Past Surgical History Cholecystectomy Eyelid surgery Reported Medications Reported Meds & Active Scripts Active Levaquin (Levofloxacin) 750 Mg Tablet 750 Mg PO DAILY 5 Days Ventolin Hfa 18 GM Inh (Albuterol Sulfate) 90 Mcg/Act Aer 2 Puff INH Q4-6H PRN Prednisone 20 Mg Tab 40 Mg PO DAILY Take 40 mg (2 tablets) daily for 5 days Gnp Vitamin B-1 (Thiamine HCl) 100 Mg Tab 100 Mg PO DAILY [Budeson-Formot 160-4.5 Mcg Inh] 60 PUFF Aero 2 Puff INH Q12HR Ecotrin Low Strength (Aspirin) 81 Mg Tabdr 81 Mg PO DAILY Cardizem CD 24 HR (Diltiazem CD 24 HR) 180 Mg Caper 180 Mg PO DAILY Allergies: Coded Allergies: tetanus toxoid, adsorbed (Unverified Allergy, Severe, 02/12/18) Active Ordered Medications Current Medications Medications (Trade) Dose Ordered Sig/Claire Route Start Time Stop Time Status Last Admin (NS Flush) 2 ml UNSCH PRN IV FLUSH 02/17/18 01:15 (NS Flush) 2 ml BID IV FLUSH 02/17/18 09:00 (Tylenol) 650 mg Q4H PRN PO 02/17/18 01:15 (Narcan Inj) 0.4 mg UNSCH PRN IV PUSH 02/17/18 01:15 (Milk Of Magnesia Liq) 30 ml Q12H PRN PO 02/17/18 01:15 (Senokot) 17.2 mg Q12H PRN PO 02/17/18 01:15 (Dulcolax Supp) 10 mg DAILY PRN RECTAL 02/17/18 01:15 (Lactulose Liq) 30 ml DAILY PRN PO 02/17/18 01:15 Family History Patient denies any family history no diabetes or CAD Social History Alcohol use: 18-20 beers a day Tobacco use: 2 PPD Illicit drug use: Cocaine Physical Exam Vital Signs Vital Signs Date Time Temp Pulse Resp B/P (MAP) Pulse Ox O2 Delivery O2 Flow Rate FiO2 02/17/18 01:10 02/17/18 00:30 86 19 98 Room Air 02/16/18 23:30 90 17 137/83 (101) 99 Room Air 02/16/18 23:00 97 20 116/75 (89) 98 Room Air 02/16/18 22:30 98 19 120/77 (91) 98 Room Air 02/16/18 22:00 101 15 115/74 (88) 99 Room Air 02/16/18 21:30 106 19 108/70 (83) 98 Room Air 02/16/18 21:00 110 17 125/65 (85) 98 Room Air 02/16/18 20:20 98 Room Air 02/16/18 20:13 98.4 118 22 141/94 (110) 98 Physical Exam GENERAL: This is a well-nourished, well-developed patient, in no apparent distress. SKIN: No rashes, ecchymoses or lesions. Cool and dry. HEAD: Atraumatic. Normocephalic. No temporal or scalp tenderness. EYES: Pupils equal round and reactive. Extraocular motions intact. No scleral icterus. No injection or drainage. CARDIOVASCULAR: Regular rate and irregular rhythm without murmurs, gallops, or rubs. +1 pedal edema. RESPIRATORY: Clear to auscultation. Breath sounds equal bilaterally. No wheezes , rales, or rhonchi. GASTROINTESTINAL: Abdomen soft, non-tender, nondistended. No hepato-splenomegaly , or palpable masses. No guarding. MUSCULOSKELETAL: Extremities without clubbing, cyanosis, or edema.Negative Homans sign bilaterally. NEUROLOGICAL: Awake and alert. Normal speech. Laboratory Laboratory Tests Test 02/16/18 20:15 02/16/18 22:30 White Blood Count 12.2 Red Blood Count 5.12 Hemoglobin 10.9 Hematocrit 35.8 Mean Corpuscular Volume 69.9 Mean Corpuscular Hemoglobin 21.2 Mean Corpuscular Hemoglobin Concent 30.3 Red Cell Distribution Width 24.3 Platelet Count 313 Mean Platelet Volume 8.7 Neutrophils (%) (Auto) 63.7 Lymphocytes (%) (Auto) 22.3 Monocytes (%) (Auto) 9.8 Eosinophils (%) (Auto) 4.0 Basophils (%) (Auto) 0.2 Neutrophils # (Auto) 7.8 Lymphocytes # (Auto) 2.7 Monocytes # (Auto) 1.2 Eosinophils # (Auto) 0.5 Basophils # (Auto) 0.0 CBC Comment DIFF FINAL Differential Comment Prothrombin Time 10.6 Prothromb Time International Ratio 1.0 Activated Partial Thromboplast Time 24.7 Blood Urea Nitrogen 18 Creatinine 1.07 Random Glucose 89 Calcium Level 8.2 Magnesium Level 2.3 Sodium Level 143 Potassium Level 4.0 Chloride Level 112 Carbon Dioxide Level 23.6 Anion Gap 7 Estimat Glomerular Filtration Rate 73 Total Creatine Kinase 54 Troponin I LESS THAN 0.02 B-Type Natriuretic Peptide 270 Ethyl Alcohol Level LESS THAN 3 Urine Opiates Screen NEG Urine Barbiturates Screen NEG Urine Amphetamines Screen NEG Urine Benzodiazepines Screen NEG Urine Cocaine Screen NEG Urine Cannabinoids Screen POS Result Diagram: 02/16/18201402/16/182014 Imaging Last Impressions Chest X-Ray 02/16/18 0000 Signed Impressions: CONCLUSION: No acute cardiopulmonary disease. Caprini VTE Risk Assessment Caprini VTE Risk Assessment: Mod/High Risk (score >= 2) Caprini Risk Assessment Model Point Value = 1 Point Value = 2 Point Value = 3 Point Value = 5 Age 41-60 Minor surgery BMI > 25 kg/m2 Swollen legs Varicose veins or History of unexplained or recurrent spontaneous Oral contraceptives or hormone replacement Sepsis (< 1 month) Serious lung disease, including pneumonia (< 1 month) Abnormal pulmonary function Acute myocardial infarction Congestive heart failure (< 1 month) History of inflammatory bowel disease Medical patient at bed rest Age 61-74 Arthroscopic surgery Major open surgery (> 45 min) Laparoscopic surgery (> 45 min) Malignancy Confined to bed (> 72 hours) Immobilizing plaster cast Central venous access Age >= 75 History of VTE Family history of VTE Factor V Leiden Prothrombin [id number] Lupus anticoagulant Anticardiolipin antibodies Elevated serum homocysteine Heparin-induced thrombocytopenia Other congenital or acquired thrombophilia Stroke (< 1 month) Elective arthroplasty Hip, pelvis, or leg fracture Acute spinal cord injury (< 1 month) Prophylaxis Regimen Total Risk Factor Score Risk Level Prophylaxis Regimen 0-1 Low Early ambulation 2 Moderate Order ONE of the following: *Sequential Compression Device (SCD) *Heparin 5000 units SQ BID 3-4 Higher Order ONE of the following medications: *Heparin 5000 units SQ TID *Enoxaparin/Lovenox 40 mg SQ daily (WT < 150 kg, CrCl > 30 mL/min) *Enoxaparin/Lovenox 30 mg SQ daily (WT < 150 kg, CrCl > 10-29 mL/min) *Enoxaparin/Lovenox 30 mg SQ BID (WT < 150 kg, CrCl > 30 mL/min) AND/OR *Sequential Compression Device (SCD) 5 or more Highest Order ONE of the following medications: *Heparin 5000 units SQ TID (Preferred with Epidurals) *Enoxaparin/Lovenox 40 mg SQ daily (WT < 150 kg, CrCl > 30 mL/min) *Enoxaparin/Lovenox 30 mg SQ daily (WT < 150 kg, CrCl > 10-29 mL/min) *Enoxaparin/Lovenox 30 mg SQ BID (WT < 150 kg, CrCl > 30 mL/min) AND *Sequential Compression Device (SCD) Assessment and Plan Assessment and Plan 47-year-old male with a history of A. fib, CHF, bipolar, COPD, CVA, CAD, tobacco /alcohol use, hypertension presents to the ED with chest pain and a rapid heartbeat. Chest pain rule out ACS, likely due to AFIB Troponin 0.02 EKG on arrival shows A. fib with RVR rate 130s, no acute ST elevation -Serial troponin and EKGs -Monitor telemetry -NTG prn as needed. -Pjuig0Cbdg score of 1 (HTN), Cont baby aspirin daily A. fib RVR, patient is currently controlled after a dose of metoprolol IV -Continue home Cardizem, titrate as needed Anemia, iron deficiency, hemoglobin 10.9, past admission iron and ferritin levels decreased -Start ferrous sulfate 325 MG DAILY CHF, chronic, patient with lower extremity edema BNP 270 Recent echo shows an EF of 25-30%, patient is not a LifeVest candidate due to compliance issues -Start LASIX 20MG po DAILY Leukocytosis, patient currently being treated for bronchitis, WBC 12.2 -Cont Levaquin 750mg and Prednisone 40mg until 02/18 Alcohol Abuse: Patient states he has not drink since discharge -Seizure Precautions -Continue on thiamine COPD, chronic -Resume home Symbicort, Atrovent nebs as needed DVT prophylaxis SCDs Discussed Condition With Patient and RN Gwen Mayen February 17, 2018 01:48
[2018-02-17] MEDS ORDERED: NITROGLYCERIN 0.4 MG SL 25 TABS/BTL SL PRN (03:00)
[2018-02-17] MEDS ORDERED: RESP: IPRATROPIUM 0.5 MG/2.5 ML NEB NEB PRN (03:00)
[2018-02-17 06:50] VITALS: BP 126/87; PULSE 85; RESP 16; O2SAT 97
[2018-02-17 07:40] VITALS: O2SAT 94
[2018-02-17 08:04] VITALS: BP 131/74; PULSE 87; RESP 19; TEMP 97.8; O2SAT 97
[2018-02-17] MEDS ORDERED: DILTIAZEM-CD 180 MG CAP ER PO SCH (09:00)
[2018-02-17] MEDS ORDERED: BUDESONIDE-FORMOTEROL 160/4.5 MCG INHALER INH SCH (09:00)
[2018-02-17] MEDS ORDERED: predniSONE 20 MG TAB PO SCH (09:00)
[2018-02-17] MEDS ORDERED: THIAMINE HCL 100 MG TAB PO SCH (09:00)
[2018-02-17] MEDS ORDERED: ASPIRIN EC 81 MG TABEC PO SCH (09:00)
[2018-02-17] MEDS ORDERED: FUROSEMIDE 20 MG TAB PO SCH (09:00)
[2018-02-17] MEDS ORDERED: SODIUM CHLORIDE 0.9% FLUSH 10 ML FLUSH IV FLUSH SCH (09:00)
[2018-02-17] MEDS ORDERED: LEVOFLOXACIN 750 MG TAB PO SCH (09:00)
[2018-02-17] MEDS ORDERED: FERROUS SULFATE 325 MG (65 MG ELEMENTAL IRON) TAB PO SCH (09:00)
[2018-02-17 11:58] VITALS: BP 148/76; PULSE 76; RESP 19; TEMP 98.7; O2SAT 97
--- NOTE | 2018-02-17 14:40 | PD.AMA ---
Against Medical Advice Note Diagnosis: (1) Atrial fibrillation with RVR (2) Chest pain (3) Substance abuse (4) Ischemic cardiomyopathy Discharge Disposition: Against Medical Advice AMA Statement Patient Haroon Esquivel has decided to leave the hospital against medical advice. This patient has the capacity to refuse care and understands the risks of leaving, including permanent disability and/or , and has had an opportunity to ask questions about his condition. The patient has been informed that he may return for care at any time, and follow up has been arranged/ advised. Susan Rios February 17, 2018 14:40
--- NOTE | 2018-02-17 19:42 | EKG ---
Date Performed: 02/17/2018 Time Performed: 02:09:24 PTAGE: 47 years EKG: ATRIAL FIBRILLATION ABNORMAL RHYTHM ECG Compared to PREVIOUS TRACING , the patient is now rate controlled. PREVIOUS TRACIN02/16/2018 20.07 DOCTOR: Starr Franco Interpretating Date/Time 02/17/2018 19:40:44
--- NOTE | 2018-02-17 19:42 | EKG ---
Date Performed: 02/16/2018 Time Performed: 20:07:50 PTAGE: 47 years EKG: ATRIAL FIBRILLATION WITH RAPID VENTRICULAR RESPONSE MINIMAL ST DEPRESSION ABNORMAL RHYTHM E CG Compared to PREVIOUS TRACING , the patient is now in rapid ventricular rate. PREVIOUS TRACIN2017 14.00 DOCTOR: Starr Franco Interpretating Date/Time 02/17/2018 19:40:30
--- NOTE | 2018-02-17 19:43 | EKG ---
Date Performed: 02/17/2018 Time Performed: 08:06:34 PTAGE: 47 years EKG: ATRIAL FIBRILLATION ABNORMAL RHYTHM ECG Since PREVIOUS TRACING , no significant change noted PREVIOUS TRACIN02/17/2018 02.09 DOCTOR: Starr Franco Interpretating Date/Time 02/17/2018 19:40:55
== END 2018-02-17 14:27 | disposition left against medical advice (07) ==
LOC: NEPC 20:07 → NEDA 02-17 00:51 → NEDH 02-17 04:51
PROVIDERS: ADMIT Internal Medicine; ATTEND Internal Medicine
DX: R00.2 Palpitations (principal); I48.91 Unspecified atrial fibrillation; J44.9 Chronic obstructive pulmonary disease, unspecified; F17.210 Nicotine dependence, cigarettes, uncomplicated; F31.9 Bipolar disorder, unspecified; Z86.73 Personal history of transient ischemic attack (TIA), and cerebral infarction without residual deficits; I50.9 Heart failure, unspecified; I11.0 Hypertensive heart disease with heart failure; I25.10 Atherosclerotic heart disease of native coronary artery without angina pectoris; R56.9 Unspecified convulsions; G43.909 Migraine, unspecified, not intractable, without status migrainosus; F10.20 Alcohol dependence, uncomplicated; F41.9 Anxiety disorder, unspecified; R07.9 Chest pain, unspecified; F20.9 Schizophrenia, unspecified; Z79.899 Other long term (current) drug therapy; F12.90 Cannabis use, unspecified, uncomplicated; D72.829 Elevated white blood cell count, unspecified; I25.5 Ischemic cardiomyopathy; Z59.0 Homelessness; F14.90 Cocaine use, unspecified, uncomplicated; D50.9 Iron deficiency anemia, unspecified; Z91.19 Patient's noncompliance with other medical treatment and regimen; R94.31 Abnormal electrocardiogram [ECG] [EKG]
CPT/HCPCS: 71045; 80048; 80307; 82550; 83735; 83880; 84484; 85025; 85610; 85730; 93005; 96360; 99285; G0378; J7050; J7512

== ENCOUNTER 2018-02-26 07:11 | Emergency (ER) | payer OTHER ==
[~2018-02-26] VITALS: Ht 188 cm; Wt 116.0 kg
[2018-02-26] VITALS (7 sets, daily range): BP systolic 118–130; BP diastolic 70–81; PULSE 96–128; RESP 18–22; TEMP 97.7–97.9; O2SAT 97–99
[2018-02-26] MEDS ORDERED: SODIUM CHLORIDE 0.9% FLUSH 10 ML FLUSH IVF PRN (07:30)
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
[2018-02-26] MEDS: RESP: ALBUTEROL 2.5 MG/IPRATROPIUM 0.5 MG NEB (SCH) INH (07:58)
[2018-02-26 08:13] LABS: BASOPHIL # 0.1 TH/MM3 (0-0.2); BASOPHIL % 1.1 % (0.0-2.0); EOSINOPHIL # 0.2 TH/MM3 (0-0.4); EOSINOPHIL % 2.3 % (0.0-4.0); HEMATOCRIT 40.3 % (39.0-51.0); HEMOGLOBIN 12.2 GM/DL (13.0-17.0); LYMPH % 22.4 % (9.0-44.0); LYMPHOCYTE # 2.3 TH/MM3 (1.0-4.8); MEAN CELL VOLUME 71.3 FL (80.0-100.0); MEAN CORPUSCULAR HEMOGLOBIN 21.6 PG (27.0-34.0); MEAN CORPUSCULAR HGB CONC 30.3 % (32.0-36.0); MEAN PLATELET VOLUME 8.4 FL (7.0-11.0); MONO % 7.2 % (0.0-8.0); MONOCYTE # 0.8 TH/MM3 (0-0.9); PLATELET COUNT 317 TH/MM3 (150-450); RED BLOOD COUNT 5.66 MIL/MM3 (4.50-5.90); RED CELL DISTRIBUTION WIDTH 25.5 % (11.6-17.2); WHITE BLOOD COUNT 10.4 TH/MM3 (4.0-11.0)
--- NOTE | 2018-02-26 08:17 | RADRPT ---
EXAM DATE: 02/26/2018 8:12 AM EDT AGE/SEX: 47 years / Male INDICATIONS: Short of breath. CLINICAL DATA: This is the patient's initial encounter. Patient reports that signs and symptoms have been present for 3 days and indicates a pain score of 3/10. MEDICAL/SURGICAL HISTORY: . Chronic obstructive pulmonary disease. Asthma. A fib. None. COMPARISON: [facility] [place], CHEST SINGLE AP, 02/16/2018. . FINDINGS: A single AP view of the chest demonstrates the lungs to be symmetrically aerated without evidence of mass, infiltrate or effusion. The cardiomediastinal contours are unremarkable. Osseous structures a re intact. CONCLUSION: Negative examination. Electronically signed by: Rola Zavala MD 02/26/2018 8:16 AM EDT
[2018-02-26 08:22] LABS: ALBUMIN 3.6 GM/DL (3.4-5.0); ALT (GPT) 30 U/L (12-78); AST (GOT) 58 U/L (15-37); BLOOD UREA NITROGEN 9 MG/DL (7-18); CALCIUM 8.2 MG/DL (8.5-10.1); CHLORIDE 113 MEQ/L (98-107); CREATININE 0.92 MG/DL (0.60-1.30); GLOMERULAR FILTRATION RATE 87 ML/MIN (>89); GLUCOSE,RANDOM 83 MG/DL (74-106); SODIUM (NA) 145 MEQ/L (136-145)
[2018-02-26 08:24] LABS: ALKALINE PHOSPHATASE 72 U/L (45-117); TOTAL BILIRUBIN ADULT 0.4 MG/DL (0.2-1.0); TOTAL PROTEIN 6.6 GM/DL (6.4-8.2); TROPONIN I LESS THAN 0.02 NG/ML (0.02-0.05)
[2018-02-26 08:32] LABS: PROTHROMBIN TIME - PATIENT 10.2 SEC (9.8-11.6)
[2018-02-26] MEDS ORDERED: DILTIAZEM-CD 180 MG CAP ER PO ONE (08:45)
[2018-02-26 09:00] LABS: ACANTHOCYTES OCC (NORMAL); KERATOCYTES OCC (NORMAL); OVALOCYTES 1+ (NORMAL)
[2018-02-26] MEDS ORDERED: VENTAER INH (13:47)
--- NOTE | 2018-02-26 17:50 | EKG ---
Date Performed: 02/26/2018 Time Performed: 07:30:03 PTAGE: 47 years EKG: ATRIAL FIBRILLATION WITH RAPID VENTRICULAR RESPONSE Compared to previous tracing, HR is fas ter, otherwise no significant change ABNORMAL RHYTHM ECG PREVIOUS TRACING : 02/17/2018 08.06 DOCTOR: Onur Araiza Interpretating Date/Time 02/26/2018 17:48:59
== END 2018-02-26 13:50 | disposition home or self-care (01) ==
LOC: NEPE 07:11
DX: J44.9 Chronic obstructive pulmonary disease, unspecified (principal); F10.129 Alcohol abuse with intoxication, unspecified; Y90.7 Blood alcohol level of 200-239 mg/100 ml; I48.91 Unspecified atrial fibrillation; R94.31 Abnormal electrocardiogram [ECG] [EKG]; I11.0 Hypertensive heart disease with heart failure; I50.9 Heart failure, unspecified; F17.200 Nicotine dependence, unspecified, uncomplicated; F12.90 Cannabis use, unspecified, uncomplicated
CPT/HCPCS: 71045; 80053; 80307; 83880; 84484; 85025; 85610; 85730; 93005; 94640; 94664; 99285

== ENCOUNTER 2018-02-27 12:03 | Emergency (ER) | payer OTHER ==
[~2018-02-27] VITALS: Ht 188 cm; Wt 116.0 kg
[~2018-02-27 12:03] MED LIST changes: -ASPI-147 PO; -Budeson-Formot 160-4.5 Mcg Inh INH; -CARD180C5 PO; -LEVA750T9 PO; -PRED20 PO; -THIA100 PO
[2018-02-27 12:50] VITALS: BP 120/78; PULSE 120; RESP 24; TEMP 98.5; O2SAT 97
[2018-02-27 13:34] VITALS: BP 110/58; PULSE 91; RESP 16; O2SAT 93
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
== END 2018-02-27 14:53 | disposition home or self-care (01) ==
LOC: NEPD 12:03 → NEDAMB 14:53
DX: J44.1 Chronic obstructive pulmonary disease with (acute) exacerbation (principal); F12.90 Cannabis use, unspecified, uncomplicated; F17.200 Nicotine dependence, unspecified, uncomplicated
CPT/HCPCS: 99281

== ENCOUNTER 2018-03-15 20:08 | Emergency (ER) | payer OTHER ==
[2018-03-15 20:25] VITALS: BP 113/78; PULSE 123; RESP 20; TEMP 97.6; O2SAT 96
[2018-03-15 20:47] VITALS: BP 128/81; PULSE 112; RESP 18; TEMP 98.2; O2SAT 94
[2018-03-15] MEDS ORDERED: METOPROLOL TARTRATE 5 MG/5 ML VIAL IV PUSH STA (20:57)
[2018-03-15] MEDS: DILTIAZEM-CD 180 MG CAP ER PO ONE (21:00)
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
[2018-03-15 21:48] LABS: AUTOMATED NEUTROPHIL # 6.6 TH/MM3 (1.8-7.7); BASOPHIL # 0.1 TH/MM3 (0-0.2); BASOPHIL % 0.9 % (0.0-2.0); EOSINOPHIL # 0.1 TH/MM3 (0-0.4); EOSINOPHIL % 0.8 % (0.0-4.0); HEMATOCRIT 34.6 % (39.0-51.0); HEMOGLOBIN 10.4 GM/DL (13.0-17.0); LYMPHOCYTE # 2.5 TH/MM3 (1.0-4.8); MEAN CORPUSCULAR HEMOGLOBIN 21.7 PG (27.0-34.0); MEAN CORPUSCULAR HGB CONC 30.2 % (32.0-36.0); MEAN PLATELET VOLUME 8.4 FL (7.0-11.0); MONO % 9.1 % (0.0-8.0); MONOCYTE # 0.9 TH/MM3 (0-0.9); NEUT % 64.2 % (16.0-70.0); PLATELET COUNT 299 TH/MM3 (150-450); RED CELL DISTRIBUTION WIDTH 23.6 % (11.6-17.2); WHITE BLOOD COUNT 10.2 TH/MM3 (4.0-11.0)
[2018-03-15 21:57] LABS: CREATININE 1.03 MG/DL (0.60-1.30)
--- NOTE | 2018-03-15 22:02 | PD ---
Physical Exam Narrative I, Dr. Galicia, have reviewed the advance practice practitioner's documentation and am in agreement, met with the patient face to face, made the diagnosis, and the medical decision making was done by me. *My assessment and Findings: Afib RVR secondary to noncompliance vs. alcohol intoxication vs. dehydration vs. electrolyte abnormality 47yo M with afib, alcohol abuse, CHF, here with alcohol intoxication under [place] act. Pt is angry and clearly intoxicated. HR in the 110s to 120s. Pt is refusing oral medication or IV medication for his afib. Pt said he has not taken his medication and knows the risks of not taking his medication. Labs reviewed, no leukocytosis. H/H low at 10.4/34.6. Blood alcohol level is 303. Pt will be allowed to rest here and become clinically sober for reevaluation. If pt is agreeable to treatment, we will give him treatment. However, we cannot force treatment on him as he is aware of what is going on. Data Data Last Documented VS Vital Signs Date Time Temp Pulse Resp B/P (MAP) Pulse Ox O2 Delivery O2 Flow Rate FiO2 03/15/18 22:50 112 20 118/71 (87) 96 Room Air 03/15/18 20:47 98.2 Orders Orders Diltiazem Cd (Cardizem Cd) (03/15/18 21:00) Metoprolol Tartrate Inj (Lopressor Inj) (03/15/18 20:57) Electrocardiogram (03/15/18 ) Basic Metabolic Panel (Bmp) (03/15/18 20:57) Complete Blood Count With Diff (03/15/18 20:57) Alcohol (Ethanol) (03/15/18 20:57) Ecg Monitoring (03/15/18 20:57) Oximetry (03/15/18 20:57) Iv Access Insert/Monitor (03/15/18 20:57) Labs Laboratory Tests Test 03/15/18 21:19 White Blood Count 10.2 TH/MM3 Red Blood Count 4.80 MIL/MM3 Hemoglobin 10.4 GM/DL Hematocrit 34.6 % Mean Corpuscular Volume 72.0 FL Mean Corpuscular Hemoglobin 21.7 PG Mean Corpuscular Hemoglobin Concent 30.2 % Red Cell Distribution Width 23.6 % Platelet Count 299 TH/MM3 Mean Platelet Volume 8.4 FL Neutrophils (%) (Auto) 64.2 % Lymphocytes (%) (Auto) 25.0 % Monocytes (%) (Auto) 9.1 % Eosinophils (%) (Auto) 0.8 % Basophils (%) (Auto) 0.9 % Neutrophils # (Auto) 6.6 TH/MM3 Lymphocytes # (Auto) 2.5 TH/MM3 Monocytes # (Auto) 0.9 TH/MM3 Eosinophils # (Auto) 0.1 TH/MM3 Basophils # (Auto) 0.1 TH/MM3 CBC Comment DIFF FINAL Differential Comment Blood Urea Nitrogen 9 MG/DL Creatinine 1.03 MG/DL Random Glucose 83 MG/DL Calcium Level 8.0 MG/DL Sodium Level 144 MEQ/L Potassium Level 3.7 MEQ/L Chloride Level 115 MEQ/L Carbon Dioxide Level 20.0 MEQ/L Anion Gap 9 MEQ/L Estimat Glomerular Filtration Rate 77 ML/MIN Ethyl Alcohol Level 303 MG/DL MDM Supervised Visit with KENNETH: Yes Interpretation(s) EKG: Afb at 115bpm. Normal axis. No significant ST elevation or depression. Diagnosis Primary Impression: Alcohol abuse with intoxication Scripts Diltiazem CD 24 HR (Cardizem CD 24 HR) 180 Mg Caper 180 MG PO DAILY, #30 CAP 0 Refills Prov: Noris Galicia DO 03/15/18 Noris Galicia DO Mar 15, 2018 22:02
[2018-03-15] MEDS ORDERED: CARD180C5 PO (22:19)
[2018-03-15 22:50] VITALS: BP 118/71; PULSE 112; RESP 20; O2SAT 96
[2018-03-16 00:52] VITALS: BP 120/82; PULSE 92; RESP 18; O2SAT 95
[2018-03-16] MEDS ORDERED: LORazepam 2 MG/ML VIAL IM ONE (01:30)
[2018-03-16] MEDS: DILTIAZEM-CD 180 MG CAP ER PO ONE (01:39)
[2018-03-16 01:53] VITALS: BP 127/80; PULSE 112; RESP 21; O2SAT 95
--- NOTE | 2018-03-16 18:44 | EKG ---
Date Performed: 03/15/2018 Time Performed: 20:48:41 PTAGE: 47 years EKG: ATRIAL FIBRILLATION WITH RAPID VENTRICULAR RESPONSE ABNORMAL RHYTHM ECG Since the PREVIOUS TRACING , no significant change noted PREVIOUS TRACIN02/26/2018 07.30 DOCTOR: Starr Franco Interpretating Date/Time 03/16/2018 18:42:18
== END 2018-03-16 02:07 | disposition home or self-care (01) ==
LOC: NEDAMB 20:08 → NEPD 03-16 02:07
DX: F10.129 Alcohol abuse with intoxication, unspecified (principal); Y90.8 Blood alcohol level of 240 mg/100 ml or more; Z91.14 Patient's other noncompliance with medication regimen; I48.91 Unspecified atrial fibrillation; R94.31 Abnormal electrocardiogram [ECG] [EKG]; I11.0 Hypertensive heart disease with heart failure; I50.9 Heart failure, unspecified; F20.9 Schizophrenia, unspecified; F31.9 Bipolar disorder, unspecified; F41.9 Anxiety disorder, unspecified; I25.10 Atherosclerotic heart disease of native coronary artery without angina pectoris; J44.9 Chronic obstructive pulmonary disease, unspecified; F17.200 Nicotine dependence, unspecified, uncomplicated; F12.90 Cannabis use, unspecified, uncomplicated; Z86.73 Personal history of transient ischemic attack (TIA), and cerebral infarction without residual deficits
CPT/HCPCS: 80048; 80307; 85025; 93005; 96372; 99284; J2060

== ENCOUNTER 2018-03-16 12:04 | Emergency (ER) | payer OTHER ==
[~2018-03-16] VITALS: Ht 180.3 cm; Wt 120.0 kg
[~2018-03-16 12:04] MED LIST changes: +CARD180C5 PO; -VENTAER INH
[2018-03-16] MEDS ORDERED: SODIUM CHLORID 0.9% 500 ML INJ 500 ML IV ONE ×2 (12:15→14:45)
[2018-03-16] MEDS ORDERED: ASPIRIN 325 MG TAB PO ONE (12:15)
[2018-03-16 12:25] VITALS: BP 214/112; PULSE 149; RESP 18; TEMP 98.5; O2SAT 97
[2018-03-16] MEDS ORDERED: METOPROLOL TARTRATE 5 MG/5 ML VIAL IV PUSH ONE ×2 (12:45→14:45)
[2018-03-16] MEDS ORDERED: DILTIAZEM-CD 180 MG CAP ER PO ONE (12:45)
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
--- NOTE | 2018-03-16 13:00 | RADRPT ---
EXAM DATE: 03/16/2018 12:55 PM EDT AGE/SEX: 47 years / Male INDICATIONS: Chest pain. CLINICAL DATA: This is the patient's initial encounter. Patient reports that signs and symptoms have been present for 2 days and indicates a pain score of 4/10. MEDICAL/SURGICAL HISTORY: Hypertension. Chronic obstructive pulmonary disease. Atrial fibrilla tion. Cholecystectomy. COMPARISON: [facility] [place], CHEST SINGLE AP, 02/26/2018. . FINDINGS: A single AP view of the chest demonstrates the lungs to be symmetrically aerated without evidence of mass, infiltrate or effusion. The heart size appears at the upper limits of normal. Osseous structur es are intact. The patient is mildly rotated to the right. There are multiple overlying electrocardi ogram leads. CONCLUSION: No acute cardiopulmonary disease. Electronically signed by: Mckinley Ramirez MD 03/16/2018 12:58 PM EDT
--- NOTE | 2018-03-16 13:00 | PD ---
Physical Exam Date Seen by Provider: Mar 16, 2018 Narrative This patient is brought to us by [facility] with atrial fibrillation with rapid ventricular response. He refused any treatment [facility]. He has atrial fibrillation here with a rate of about 160. He is also intoxicated. He has also stated here that he does not want anyone to start an IV. Data Data Last Documented VS Vital Signs Date Time Temp Pulse Resp B/P (MAP) Pulse Ox O2 Delivery O2 Flow Rate FiO2 03/16/18 12:29 159 03/16/18 12:25 98.5 18 214/112 (146) 97 Orders Orders Electrocardiogram (03/16/18 12:11) Ckmb (Isoenzyme) Profile (03/16/18 12:11) Complete Blood Count With Diff (03/16/18 12:11) Comprehensive Metabolic Panel (03/16/18 12:11) Troponin I (03/16/18 12:11) Lipase (03/16/18 12:11) Chest, Single Ap (03/16/18 12:11) Ecg Monitoring (03/16/18 12:11) Bilateral Bp Monitoring (03/16/18 12:11) Iv Access Insert/Monitor (03/16/18 12:11) Oximetry (03/16/18 12:11) Aspirin (Aspirin) (03/16/18 12:15) Sodium Chlorid 0.9% 500 Ml Inj (Ns 500 M (03/16/18 12:15) Drug Screen, Random Urine (03/16/18 12:12) Alcohol (Ethanol) (03/16/18 12:12) Vascular Access Team Consult/P PRN (03/16/18 12:20) Vascular Poc Ultrasound (03/16/18 ) Diltiazem Cd (Cardizem Cd) (03/16/18 12:45) Metoprolol Tartrate Inj (Lopressor Inj) (03/16/18 12:45) MDM Supervised Visit with KENNETH: Yes Interpretation(s) EKG shows atrial fibrillation with a rapid ventricular response Narrative Course I, Dr. Salazar, have reviewed the advance practice practitioner's documentation and am in agreement, met with the patient face to face, made the diagnosis, and the medical decision making was done by me. *My assessment and Findings: AF with RVR. Intoxicated. See Jake Flowers note for a more detailed H&P, final diagnosis and disposition Tierra Salzaar MD Mar 16, 2018 13:00
[2018-03-16 14:22] LABS: AUTOMATED NEUTROPHIL # 6.5 TH/MM3 (1.8-7.7); BASOPHIL # 0.1 TH/MM3 (0-0.2); BASOPHIL % 1.1 % (0.0-2.0); EOSINOPHIL # 0.1 TH/MM3 (0-0.4); EOSINOPHIL % 0.6 % (0.0-4.0); HEMATOCRIT 33.9 % (39.0-51.0); HEMOGLOBIN 10.2 GM/DL (13.0-17.0); LYMPH % 23.8 % (9.0-44.0); LYMPHOCYTE # 2.2 TH/MM3 (1.0-4.8); MEAN CELL VOLUME 72.6 FL (80.0-100.0); MEAN CORPUSCULAR HEMOGLOBIN 21.9 PG (27.0-34.0); MEAN CORPUSCULAR HGB CONC 30.2 % (32.0-36.0); MEAN PLATELET VOLUME 8.5 FL (7.0-11.0); MONO % 5.6 % (0.0-8.0); MONOCYTE # 0.5 TH/MM3 (0-0.9); NEUT % 68.9 % (16.0-70.0); PLATELET COUNT 289 TH/MM3 (150-450); RED BLOOD COUNT 4.67 MIL/MM3 (4.50-5.90); RED CELL DISTRIBUTION WIDTH 24.4 % (11.6-17.2); WHITE BLOOD COUNT 9.4 TH/MM3 (4.0-11.0)
[2018-03-16] MEDS ORDERED: LORazepam 2 MG/ML VIAL IV PUSH ONE (14:30)
[2018-03-16] MEDS ORDERED: ONDANSETRON ODT 4 MG TAB PO ONE (14:45)
[2018-03-16 14:51] VITALS: BP 117/89; PULSE 117; RESP 18; O2SAT 99
[2018-03-16 16:19] LABS: ALKALINE PHOSPHATASE 66 U/L (45-117); ALT (GPT) 27 U/L (12-78); AST (GOT) 39 U/L (15-37); BICARBONATE 19.3 MEQ/L (21.0-32.0); BLOOD UREA NITROGEN 6 MG/DL (7-18); CALCIUM 6.7 MG/DL (8.5-10.1); CALCIUM-PROTEIN CORRECTED 7.5 MG/DL (8.5-10.1); CHLORIDE 118 MEQ/L (98-107); CREATININE 0.75 MG/DL (0.60-1.30); GLOMERULAR FILTRATION RATE 111 ML/MIN (>89); GLUCOSE,RANDOM 78 MG/DL (74-106); SODIUM (NA) 148 MEQ/L (136-145); TOTAL BILIRUBIN ADULT 0.3 MG/DL (0.2-1.0); TOTAL PROTEIN 5.5 GM/DL (6.4-8.2); TROPONIN I 0.02 NG/ML (0.02-0.05)
--- NOTE | 2018-03-17 12:46 | EKG ---
Date Performed: 03/16/2018 Time Performed: 12:33:58 PTAGE: 47 years EKG: ATRIAL FIBRILLATION WITH RAPID VENTRICULAR RESPONSE WITH ABERRANT CONDUCTION OR VENTRICULAR PREMATURE COMPLEXES MINIMAL ST DEPRESSION ABNORMAL RHYTHM ECG Since the PREVIOUS TRACING , no significant change noted PREVIOUS TRACIN03/15/2018 20.48 DOCTOR: Bridger Deng Interpretating Date/Time 03/17/2018 12:42:45
== END 2018-03-16 15:28 | disposition left against medical advice (07) ==
LOC: NEPE 12:04
DX: F10.129 Alcohol abuse with intoxication, unspecified (principal); I48.91 Unspecified atrial fibrillation; R07.9 Chest pain, unspecified; R94.31 Abnormal electrocardiogram [ECG] [EKG]; F12.90 Cannabis use, unspecified, uncomplicated; F31.9 Bipolar disorder, unspecified; F41.9 Anxiety disorder, unspecified; I11.0 Hypertensive heart disease with heart failure; I50.9 Heart failure, unspecified; J44.9 Chronic obstructive pulmonary disease, unspecified; I25.10 Atherosclerotic heart disease of native coronary artery without angina pectoris; F20.9 Schizophrenia, unspecified; F17.200 Nicotine dependence, unspecified, uncomplicated; Z79.899 Other long term (current) drug therapy; Z86.73 Personal history of transient ischemic attack (TIA), and cerebral infarction without residual deficits; Z87.19 Personal history of other diseases of the digestive system
CPT/HCPCS: 71045; 80053; 80307; 82550; 82552; 83690; 84484; 85025; 93005; 96361; 96374; 96375; 99285; J2060; J7040

== ENCOUNTER 2018-03-16 21:31 | Emergency (ER) | payer OTHER ==
[~2018-03-16] VITALS: Ht 180.3 cm; Wt 105.0 kg
[2018-03-16 21:41] VITALS: BP 137/88; PULSE 226; RESP 20; TEMP 98.6; O2SAT 98
[2018-03-16 22:03] VITALS: BP 137/88; PULSE 226; RESP 20; TEMP 98.6; O2SAT 98
[2018-03-16] MEDS ORDERED: SODIUM CHLORIDE 0.9% FLUSH 10 ML FLUSH IVF PRN (22:15)
[2018-03-16] MEDS ORDERED: ASPIRIN 81 MG CHEW TAB PO ONE (22:15)
[2018-03-16] MEDS ORDERED: DILTIAZEM HCL 60 MG TAB PO ONE (22:30)
[2018-03-16] MEDS ORDERED: HALOPERIDOL LACTATE 5 MG/ML AMP IM ONE (22:30)
[2018-03-16] MEDS ORDERED: LORazepam 2 MG/ML VIAL IM ONE (22:30)
[2018-03-16 23:36] LABS: ACETAMINOPHEN LESS THAN 2.0 MCG/ML (10.0-30.0); ALBUMIN 3.2 GM/DL (3.4-5.0); ALT (GPT) 29 U/L (12-78); AST (GOT) 43 U/L (15-37); BICARBONATE 19.9 MEQ/L (21.0-32.0); BLOOD UREA NITROGEN 6 MG/DL (7-18); CALCIUM 7.4 MG/DL (8.5-10.1); CHLORIDE 115 MEQ/L (98-107); CREATININE 0.82 MG/DL (0.60-1.30); GLOMERULAR FILTRATION RATE 100 ML/MIN (>89); GLUCOSE,RANDOM 82 MG/DL (74-106); MAGNESIUM 1.8 MG/DL (1.5-2.5); SODIUM (NA) 144 MEQ/L (136-145); TOTAL BILIRUBIN ADULT 0.4 MG/DL (0.2-1.0); TROPONIN I LESS THAN 0.02 NG/ML (0.02-0.05)
[2018-03-16 23:44] LABS: ALKALINE PHOSPHATASE 73 U/L (45-117)
--- NOTE | 2018-03-17 00:01 | PD ---
Physical Exam Date Seen by Provider: Mar 16, 2018 Time Seen by Provider: 23:59 Narrative 47-year-old male came to the emergency room as a psych patient. He is also intoxicated. Patient was in the emergency department earlier today during the day and left AGAINST MEDICAL ADVICE. He has been extremely uncooperative with any exam or workup. My PA has been seeing the patient and I am supervising him. 1 of the medical issues is A. fib with RVR. Patient has history of A. fib with RVR and apparently is supposed to take 90 mg of Cardizem 3 times a day. It is unclear and quite possibly highly unlikely that he is taking this medication. Initially when he arrived his heart rate recorded was in 200s. By the time he came to this pod heart rate had come down to 90s-100s. Patient has been given IM Haldol and Ativan to be medically restrained. Workup is slowly getting done. I am still waiting for an EKG. Data Data Last Documented VS Orders Orders Complete Blood Count With Diff (03/16/18 22:07) Comprehensive Metabolic Panel (03/16/18 22:07) Thyroid Stimulating Hormone (03/16/18 22:07) Psych Screen (03/16/18 22:07) Drug Screen, Random Urine (03/16/18 22:07) Alcohol (Ethanol) (03/16/18 22:07) Salicylates (Aspirin) (03/16/18 22:07) Tylenol (Acetaminophen) (03/16/18 22:07) Electrocardiogram (03/16/18 22:07) Ckmb (Isoenzyme) Profile (03/16/18 22:07) Magnesium (Mg) (03/16/18 22:07) Troponin I (03/16/18 22:07) Ecg Monitoring (03/16/18 22:07) Iv Access Insert/Monitor (03/16/18 22:07) Oximetry (03/16/18 22:07) Oxygen Administration (03/16/18 22:07) Aspirin Chew (Aspirin Chew) (03/16/18 22:15) Sodium Chloride 0.9% Flush (Ns Flush) (03/16/18 22:15) Diltiazem (Cardizem) (03/16/18 22:30) Haloperidol Inj (Haldol Inj) (03/16/18 22:30) Lorazepam Inj (Ativan Inj) (03/16/18 22:30) CKMB (03/16/18 22:10) CKMB% (03/16/18 22:10) Alcohol Withdrawal Asmt-Ciwa Q4HX18 (03/17/18 07:32) Flumazenil Inj (Romazicon Inj) (03/17/18 07:45) Lorazepam (Ativan) (03/17/18 07:45) Lorazepam Inj (Ativan Inj) (03/17/18 07:45) Lorazepam (Ativan) (03/17/18 07:45) Lorazepam Inj (Ativan Inj) (03/17/18 07:45) Lorazepam Inj (Ativan Inj) (03/17/18 07:45) Lorazepam Inj (Ativan Inj) (03/17/18 07:45) Ed Discharge Order (03/17/18 08:28) Labs Laboratory Tests Test 03/16/18 22:10 03/16/18 23:55 03/17/18 00:30 Blood Urea Nitrogen 6 MG/DL Creatinine 0.82 MG/DL Random Glucose 82 MG/DL Total Protein 6.0 GM/DL Albumin 3.2 GM/DL Calcium Level 7.4 MG/DL Magnesium Level 1.8 MG/DL Alkaline Phosphatase 73 U/L Aspartate Amino Transf (AST/SGOT) 43 U/L Alanine Aminotransferase (ALT/SGPT) 29 U/L Total Bilirubin 0.4 MG/DL Sodium Level 144 MEQ/L Potassium Level 4.5 MEQ/L Chloride Level 115 MEQ/L Carbon Dioxide Level 19.9 MEQ/L Anion Gap 9 MEQ/L Estimat Glomerular Filtration Rate 100 ML/MIN Protein Corrected Calcium 8.0 MG/DL Total Creatine Kinase 230 U/L Creatine Kinase MB 4.0 NG/ML Troponin I LESS THAN 0.02 NG/ML Thyroid Stimulating Hormone 3rd Gen 1.670 uIU/ML Salicylates Level 5.1 MG/DL Acetaminophen Level LESS THAN 2.0 MCG/ML Ethyl Alcohol Level 244 MG/DL Urine Opiates Screen NEG Urine Barbiturates Screen NEG Urine Amphetamines Screen NEG Urine Benzodiazepines Screen NEG Urine Cocaine Screen NEG Urine Cannabinoids Screen POS White Blood Count 9.4 TH/MM3 Red Blood Count 5.27 MIL/MM3 Hemoglobin 11.7 GM/DL Hematocrit 38.2 % Mean Corpuscular Volume 72.5 FL Mean Corpuscular Hemoglobin 22.2 PG Mean Corpuscular Hemoglobin Concent 30.6 % Red Cell Distribution Width 24.2 % Platelet Count 302 TH/MM3 Mean Platelet Volume 8.4 FL Neutrophils (%) (Auto) 63.3 % Lymphocytes (%) (Auto) 29.0 % Monocytes (%) (Auto) 5.8 % Eosinophils (%) (Auto) 0.9 % Basophils (%) (Auto) 1.0 % Neutrophils # (Auto) 5.9 TH/MM3 Lymphocytes # (Auto) 2.7 TH/MM3 Monocytes # (Auto) 0.5 TH/MM3 Eosinophils # (Auto) 0.1 TH/MM3 Basophils # (Auto) 0.1 TH/MM3 CBC Comment DIFF FINAL Differential Comment MDM Supervised Visit with KENNETH: Yes Interpretation(s) Twelve-lead EKG was reviewed by me. A. fib, rate controlled. Heart rate of 85 bpm. Brandon Ortiz MD Mar 17, 2018 00:01
[2018-03-17 01:16] LABS: AUTOMATED NEUTROPHIL # 5.9 TH/MM3 (1.8-7.7); BASOPHIL # 0.1 TH/MM3 (0-0.2); EOSINOPHIL # 0.1 TH/MM3 (0-0.4); EOSINOPHIL % 0.9 % (0.0-4.0); HEMATOCRIT 38.2 % (39.0-51.0); HEMOGLOBIN 11.7 GM/DL (13.0-17.0); LYMPHOCYTE # 2.7 TH/MM3 (1.0-4.8); MEAN CELL VOLUME 72.5 FL (80.0-100.0); MEAN CORPUSCULAR HEMOGLOBIN 22.2 PG (27.0-34.0); MEAN CORPUSCULAR HGB CONC 30.6 % (32.0-36.0); MEAN PLATELET VOLUME 8.4 FL (7.0-11.0); MONO % 5.8 % (0.0-8.0); MONOCYTE # 0.5 TH/MM3 (0-0.9); NEUT % 63.3 % (16.0-70.0); PLATELET COUNT 302 TH/MM3 (150-450); RED BLOOD COUNT 5.27 MIL/MM3 (4.50-5.90); RED CELL DISTRIBUTION WIDTH 24.2 % (11.6-17.2); WHITE BLOOD COUNT 9.4 TH/MM3 (4.0-11.0)
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
[2018-03-17] MEDS ORDERED: FLUMAZENIL 0.5 MG/5 ML VIAL IV PUSH PRN (07:45)
[2018-03-17] MEDS ORDERED: LORazepam 2 MG TAB PO PRN (07:45)
[2018-03-17] MEDS ORDERED: LORazepam 1 MG TAB PO PRN (07:45)
[2018-03-17] MEDS ORDERED: LORazepam 2 MG/ML VIAL IV PUSH PRN ×4 (07:45)
--- NOTE | 2018-03-17 08:27 | PD ---
Physical Exam Date Seen by Provider: Mar 17, 2018 Time Seen by Provider: 08:26 Narrative 47-year-old male previously medically cleared for psychiatric evaluation under the Alfaro act, has been evaluated by psychiatric staff and deemed psychiatrically stable for discharge at this time. Patient remains medically stable for discharge. Follow-up will be based on psychiatric note. Data Data Last Documented VS Vital Signs Date Time Temp Pulse Resp B/P (MAP) Pulse Ox O2 Delivery O2 Flow Rate FiO2 03/16/18 23:00 114 24 03/16/18 22:03 98.6 98 03/16/18 21:41 Room Air Orders Orders Complete Blood Count With Diff (03/16/18 22:07) Comprehensive Metabolic Panel (03/16/18 22:07) Thyroid Stimulating Hormone (03/16/18 22:07) Psych Screen (03/16/18 22:07) Drug Screen, Random Urine (03/16/18 22:07) Alcohol (Ethanol) (03/16/18 22:07) Salicylates (Aspirin) (03/16/18 22:07) Tylenol (Acetaminophen) (03/16/18 22:07) Electrocardiogram (03/16/18 22:07) Ckmb (Isoenzyme) Profile (03/16/18 22:07) Magnesium (Mg) (03/16/18 22:07) Troponin I (03/16/18 22:07) Ecg Monitoring (03/16/18 22:07) Iv Access Insert/Monitor (03/16/18 22:07) Oximetry (03/16/18 22:07) Oxygen Administration (03/16/18 22:07) Aspirin Chew (Aspirin Chew) (03/16/18 22:15) Sodium Chloride 0.9% Flush (Ns Flush) (03/16/18 22:15) Diltiazem (Cardizem) (03/16/18 22:30) Haloperidol Inj (Haldol Inj) (03/16/18 22:30) Lorazepam Inj (Ativan Inj) (03/16/18 22:30) CKMB (03/16/18 22:10) CKMB% (03/16/18 22:10) Diet Regular Basic (03/17/18 Breakfast) Alcohol Withdrawal Asmt-Ciwa Q4HX18 (03/17/18 07:32) Flumazenil Inj (Romazicon Inj) (03/17/18 07:45) Lorazepam (Ativan) (03/17/18 07:45) Lorazepam Inj (Ativan Inj) (03/17/18 07:45) Lorazepam (Ativan) (03/17/18 07:45) Lorazepam Inj (Ativan Inj) (03/17/18 07:45) Lorazepam Inj (Ativan Inj) (03/17/18 07:45) Lorazepam Inj (Ativan Inj) (03/17/18 07:45) Labs Laboratory Tests Test 03/16/18 22:10 03/16/18 23:55 03/17/18 00:30 Blood Urea Nitrogen 6 MG/DL Creatinine 0.82 MG/DL Random Glucose 82 MG/DL Total Protein 6.0 GM/DL Albumin 3.2 GM/DL Calcium Level 7.4 MG/DL Magnesium Level 1.8 MG/DL Alkaline Phosphatase 73 U/L Aspartate Amino Transf (AST/SGOT) 43 U/L Alanine Aminotransferase (ALT/SGPT) 29 U/L Total Bilirubin 0.4 MG/DL Sodium Level 144 MEQ/L Potassium Level 4.5 MEQ/L Chloride Level 115 MEQ/L Carbon Dioxide Level 19.9 MEQ/L Anion Gap 9 MEQ/L Estimat Glomerular Filtration Rate 100 ML/MIN Protein Corrected Calcium 8.0 MG/DL Total Creatine Kinase 230 U/L Creatine Kinase MB 4.0 NG/ML Troponin I LESS THAN 0.02 NG/ML Thyroid Stimulating Hormone 3rd Gen 1.670 uIU/ML Salicylates Level 5.1 MG/DL Acetaminophen Level LESS THAN 2.0 MCG/ML Ethyl Alcohol Level 244 MG/DL Urine Opiates Screen NEG Urine Barbiturates Screen NEG Urine Amphetamines Screen NEG Urine Benzodiazepines Screen NEG Urine Cocaine Screen NEG Urine Cannabinoids Screen POS White Blood Count 9.4 TH/MM3 Red Blood Count 5.27 MIL/MM3 Hemoglobin 11.7 GM/DL Hematocrit 38.2 % Mean Corpuscular Volume 72.5 FL Mean Corpuscular Hemoglobin 22.2 PG Mean Corpuscular Hemoglobin Concent 30.6 % Red Cell Distribution Width 24.2 % Platelet Count 302 TH/MM3 Mean Platelet Volume 8.4 FL Neutrophils (%) (Auto) 63.3 % Lymphocytes (%) (Auto) 29.0 % Monocytes (%) (Auto) 5.8 % Eosinophils (%) (Auto) 0.9 % Basophils (%) (Auto) 1.0 % Neutrophils # (Auto) 5.9 TH/MM3 Lymphocytes # (Auto) 2.7 TH/MM3 Monocytes # (Auto) 0.5 TH/MM3 Eosinophils # (Auto) 0.1 TH/MM3 Basophils # (Auto) 0.1 TH/MM3 CBC Comment DIFF FINAL Differential Comment MDM Medical Record Reviewed: Yes Supervised Visit with KENNETH: Yes Narrative Course 47-year-old male previously medically cleared for psychiatric evaluation under the Alfaro act, has been evaluated by psychiatric staff and deemed psychiatrically stable for discharge at this time. Patient remains medically stable for discharge. Follow-up will be based on psychiatric note. Diagnosis Primary Impression: Medical clearance for psychiatric admission Additional Impressions: Alcohol intoxication Chronic A. fib Patient Instructions: General Instructions Disposition: 01 DISCHARGE HOME Condition: Stable Drew Nichole Mar 17, 2018 08:27
--- NOTE | 2018-03-17 12:46 | EKG ---
Date Performed: 03/16/2018 Time Performed: 23:57:03 PTAGE: 47 years EKG: ATRIAL FIBRILLATION ABNORMAL RHYTHM ECG Since the PREVIOUS TRACING , no significant change noted PREVIOUS TRACIN03/16/2018 12.33 DOCTOR: Bridger Deng Interpretating Date/Time 03/17/2018 12:42:33
--- NOTE | 2018-03-17 17:00 | PD.PSY.CON ---
Provisional Diagnosis Admission Date [place] I. Alcohol-induced mood disorder, alcohol use disorder, cannabis use disorder, conscious simulation with secondary gain of use in the hospital as a prison [place] II. Antisocial personality disorder History of Present Illness Service Psychiatry Consult Requested By ER Reason for Consult SI Primary Care Physician Unknown HPI The patient is 47-year-old man, homeless, unemployed, single, multiple ER visits, psychiatric history of alcohol and cannabis use disorder, antisocial personality disorder, who came to the emergency room as a psych patient. He is also intoxicated. Patient was in the emergency department earlier today during the day and left AGAINST MEDICAL ADVICE. He has been extremely uncooperative with any exam or workup. My PA has been seeing the patient and I am supervising him. 1 of the medical issues is A. fib with RVR. Patient has history of A. fib with RVR and apparently is supposed to take 90 mg of Cardizem 3 times a day. It is unclear and quite possibly highly unlikely that he is taking this medication. Initially when he arrived his heart rate recorded was in 200s. By the time he came to this pod heart rate had come down to 90s-100s. Patient has been given IM Haldol and Ativan to be medically restrained. Workup is slowly getting done. EMR reviewed, case discussed with ER staff. On psychiatric evaluation today the patient presents calm, cooperative, he is clinically sober. Requesting to be discharged. He denies symptoms of depression, denies suicidal enemas ideation, he denies visual and auditory hallucinations. Past Family Social History Coded Allergies: tetanus toxoid, adsorbed (Verified Allergy, Severe, HIVES, 03/16/18) Active Scripts Diltiazem CD 24 HR (Cardizem CD 24 HR) 180 Mg Caper, 180 MG PO DAILY, #30 CAP 0 Refills Prov:Noris Galicia DO 03/15/18 Discontinued Scripts Albuterol 18 GM Inh (Ventolin Hfa 18 GM Inh) 90 Mcg/Act Aer, 2 PUFF INH Q4-6H Y for SHORTNESS OF BREATH, #1 INHALER 0 Refills Prov:Vilma Holloway MD 02/26/18 Physical Exam Vital Signs Vital Signs Date Time Temp Pulse Resp B/P (MAP) Pulse Ox O2 Delivery O2 Flow Rate FiO2 03/17/18 08:38 03/16/18 23:00 114 24 03/16/18 22:03 98.6 98 6/21/18 21:41 Room Air Lab Results Test 03/16/18 22:10 03/16/18 23:55 03/17/18 00:30 Blood Urea Nitrogen 6 MG/DL Creatinine 0.82 MG/DL Random Glucose 82 MG/DL Total Protein 6.0 GM/DL Albumin 3.2 GM/DL Calcium Level 7.4 MG/DL Magnesium Level 1.8 MG/DL Alkaline Phosphatase 73 U/L Aspartate Amino Transf (AST/SGOT) 43 U/L Alanine Aminotransferase (ALT/SGPT) 29 U/L Total Bilirubin 0.4 MG/DL Sodium Level 144 MEQ/L Potassium Level 4.5 MEQ/L Chloride Level 115 MEQ/L Carbon Dioxide Level 19.9 MEQ/L Anion Gap 9 MEQ/L Estimat Glomerular Filtration Rate 100 ML/MIN Protein Corrected Calcium 8.0 MG/DL Total Creatine Kinase 230 U/L Creatine Kinase MB 4.0 NG/ML Troponin I LESS THAN 0.02 NG/ML Thyroid Stimulating Hormone 3rd Gen 1.670 uIU/ML Salicylates Level 5.1 MG/DL Acetaminophen Level LESS THAN 2.0 MCG/ML Ethyl Alcohol Level 244 MG/DL Urine Opiates Screen NEG Urine Barbiturates Screen NEG Urine Amphetamines Screen NEG Urine Benzodiazepines Screen NEG Urine Cocaine Screen NEG Urine Cannabinoids Screen POS White Blood Count 9.4 TH/MM3 Red Blood Count 5.27 MIL/MM3 Hemoglobin 11.7 GM/DL Hematocrit 38.2 % Mean Corpuscular Volume 72.5 FL Mean Corpuscular Hemoglobin 22.2 PG Mean Corpuscular Hemoglobin Concent 30.6 % Red Cell Distribution Width 24.2 % Platelet Count 302 TH/MM3 Mean Platelet Volume 8.4 FL Neutrophils (%) (Auto) 63.3 % Lymphocytes (%) (Auto) 29.0 % Monocytes (%) (Auto) 5.8 % Eosinophils (%) (Auto) 0.9 % Basophils (%) (Auto) 1.0 % Neutrophils # (Auto) 5.9 TH/MM3 Lymphocytes # (Auto) 2.7 TH/MM3 Monocytes # (Auto) 0.5 TH/MM3 Eosinophils # (Auto) 0.1 TH/MM3 Basophils # (Auto) 0.1 TH/MM3 CBC Comment DIFF FINAL Differential Comment Assessment & Plan Problem List: (1) Alcohol abuse with alcohol-induced mood disorder ICD Codes: F10.14 - Alcohol abuse with alcohol-induced mood disorder (2) Alcohol abuse with alcohol-induced mood disorder ICD Codes: F10.14 - Alcohol abuse with alcohol-induced mood disorder Assessment & Plan: Ativan 2 mg for withdrawal symptoms. Assessment & Plan Estimated LOS: Prince Duke MD Mar 17, 2018 17:00
== END 2018-03-17 08:40 | disposition home or self-care (01) ==
LOC: NEPD 21:31 → NEPJ 03-17 08:40
DX: F10.129 Alcohol abuse with intoxication, unspecified (principal); I48.2 Chronic atrial fibrillation; R45.851 Suicidal ideations; F12.90 Cannabis use, unspecified, uncomplicated; R94.31 Abnormal electrocardiogram [ECG] [EKG]; J45.909 Unspecified asthma, uncomplicated; F31.9 Bipolar disorder, unspecified; F41.9 Anxiety disorder, unspecified; I11.0 Hypertensive heart disease with heart failure; I50.9 Heart failure, unspecified; J44.9 Chronic obstructive pulmonary disease, unspecified; I25.10 Atherosclerotic heart disease of native coronary artery without angina pectoris; Z87.19 Personal history of other diseases of the digestive system; F20.9 Schizophrenia, unspecified; F17.200 Nicotine dependence, unspecified, uncomplicated; Z86.73 Personal history of transient ischemic attack (TIA), and cerebral infarction without residual deficits; Z86.69 Personal history of other diseases of the nervous system and sense organs
CPT/HCPCS: 80053; 80307; 82550; 82552; 83735; 84443; 84484; 85025; 93005; 96372; 99284; J1630; J2060